=== PATIENT | male | born 1955 | race Caucasian/White ===

== ENCOUNTER → 2018-04-30 15:43 | Outpatient (CLI) | payer MEDICARE, OTHER, SELFPAY ==
[2018-04-30 12:30] VITALS: BMI 39.0
[2018-04-30 16:13] LABS: AST(SGOT) 13 U/L (15-37); Alanine Aminotransfer ALT/SGPT 31 U/L (16-61); Albumin, Serum 3.5 g/dL (3.2-5.0); Alkaline Phosphatase 70 U/L (45-117); Amylase 155 U/L (25-115); Bilirubin, Direct 0.11 mg/dL (0.00-0.30); Globulin 3.7 g/dL (2.2-4.2); Lipase 389 U/L (73-393); Protein, Total 7.2 g/dL (6.4-8.2)
[2018-05-03 06:06] LABS: HEPATITIS B SURFACE AG Negative (Negative); Hepatitis A IgM Antibody Negative (Negative); Hepatitis B Core AB IgM Negative (Negative)
[2018-05-03 10:30] LABS: Hep C Antibodies <0.1 s/co ratio (0.0-0.9)
== END ==
PROVIDERS: Family Provider Nurse Practitioner; PCP Nurse Practitioner; Referring Provider Nurse Practitioner; Visit Provider Nurse Practitioner
DX: E11.9 Type 2 diabetes mellitus without complications (principal); R10.11 Right upper quadrant pain; R11.2 Nausea with vomiting, unspecified
CPT/HCPCS: 80074; 80076; 82150; 83690

== ENCOUNTER → 2019-01-18 23:59 | Outpatient (CLI) | payer MEDICARE, OTHER, SELFPAY ==
[2019-01-18 20:23] VITALS: BMI 39.3
[2019-01-19 00:28] LABS: AST(SGOT) 22 U/L (15-37); Alanine Aminotransfer ALT/SGPT 30 U/L (16-61); Albumin, Serum 3.8 g/dL (3.2-5.0); Alkaline Phosphatase 65 U/L (45-117); Anion Gap 5 (5-15); BUN 17 mg/dL (7-18); BUN/Creat Ratio 13.2 RATIO (10-20); Calcium,Total 8.9 mg/dL (8.5-10.1); Chloride 107 mmol/L (98-107); Creatinine, Serum 1.29 mg/dL (0.70-1.30); EST Glomerular Filtration Rate 60 mL/min (>60); Est Glom Filt Rate - Afr Amer 72 mL/min (>60); Globulin 3.9 g/dL (2.2-4.2); Glucose 121 mg/dL (74-106); Potassium 4.2 mmol/L (3.5-5.1); Protein, Total 7.7 g/dL (6.4-8.2); Sodium Level 142 mmol/L (136-145)
== END ==
PROVIDERS: Family Provider Nurse Practitioner; PCP Nurse Practitioner; Referring Provider Nurse Practitioner; Visit Provider Nurse Practitioner
DX: R18.8 Other ascites (principal)
CPT/HCPCS: 80053

== ENCOUNTER → 2019-09-15 06:12 | Outpatient (CLI) | payer MEDICARE, OTHER, SELFPAY ==
[2019-08-14 18:54] VITALS: BMI 39.2
[2019-09-13 17:10] VITALS: BMI 37.6
--- NOTE | 2019-09-15 16:12 | STRESSREP ---
Stress Test Report Pharmacologic myocardial perfusion stress test. 64-year-old man with a history of coronary risk factors. Stress protocol: Resting EKG demonstrates sinus bradycardia with a rate of 56 bpm normal intervals are noted resting blood pressure is 148/82 mmHg. 0.4 mg of regadenoson was infused per usual protocol followed Intravenous saline flush injection. Continuous EKG monitoring was performed. The maximum heart rate attained was 83 bpm which was 53% of maximum practice heart rate and the maximum workload was 1 metabolic equivalent. At rest there were no ST or T wave changes noted to suggest abnormal flow reserve. At peak infusion nonspecific ST-T wave changes were noted to suggest abnormal flow reserve. The resting blood pressure was 148/82 with a final blood pressure 138/70 mmHg. Myocardial perfusion protocol. 14.4 mCi of technetium 99m sestamibi was injected at rest. 0.4 mg of regadenoson was infused per usual protocol. At peak infusion 45.0 mCi of technetium 99m sestamibi was injected stress images were obtained stress and rest images were reconstructed and compared in the short axis vertical long horizontal long axis. Gated images were also obtained. Perfusion SPECT analysis: Review of the stress images demonstrate normal uptake of tracer noted in all areas of the myocardium the resting images similarly demonstrate normal uptake of tracer noted in all areas of the myocardium. No areas of reversibility are noted to suggest ischemia no previous infarct is noted. Gated SPECT analysis: The gated ejection fraction is noted to be 61%. Conclusion: Normal pharmacologic myocardial perfusion stress test. Preserved ejection fraction.
== END ==
PROVIDERS: PCP Nurse Practitioner; Referring Provider Nurse Practitioner Family; Visit Provider Nurse Practitioner Family
DX: I25.10 Atherosclerotic heart disease of native coronary artery without angina pectoris (principal); I44.4 Left anterior fascicular block; E11.9 Type 2 diabetes mellitus without complications; I45.10 Unspecified right bundle-branch block
CPT/HCPCS: 78452; 93017; A9500; A4216; J2785

== ENCOUNTER → 2020-05-24 22:07 | Outpatient (CLI) | payer MEDICARE, OTHER, SELFPAY ==
[2020-05-24 17:46] VITALS: BMI 36.2
[2020-05-24 22:13] LABS: Absolute Lymphocyte Count 2.06 X10^3/uL (0.83-4.51); Absolute Neutrophil Count 4.9 X10^3/uL (2.0-7.7); Basophil# 0.06 X10^3/uL; Basophil% 0.7 % (0-1); Eosinophil# 0.23 X10^3/uL; Eosinophils% 2.9 % (0-5); Hematocrit 37.4 % (40-54); Hemoglobin 12.2 g/dL (13.0-16.5); Lymphocyte # 2.06 X10^3/ul (4.0); Lymphocyte % 25.6 % (19-41); Mean Corp Hgb Conc 32.6 g/dL (32-36); Mean Corpuscular Hgb 28.6 pg (27.0-32.0); Mean Corpuscular Volume 87.6 fL (80-94); Mean Platelet Vol. 10.4 fl (6.2-12.0); Monocyte# 0.77 X10^3/uL; Monocyte% 9.6 % (0-10); NRBC Flagged by Analyzer 0 % (0-5); Platelet Count 297 K/mm3 (150-450); RBC Distribution Width CV 13.1 % (11.6-14.6); RBC Distribution Width SD 41.6 fl (35.1-43.9); Red Blood Count 4.27 M/mm3 (4.6-6.2)
[2020-05-24 22:45] LABS: Hemoglobin A1c 6.2 % (3.8-5.6)
== END ==
PROVIDERS: PCP Nurse Practitioner; Referring Provider Nurse Practitioner; Visit Provider Nurse Practitioner
DX: E11.9 Type 2 diabetes mellitus without complications (principal); K21.9 Gastro-esophageal reflux disease without esophagitis
CPT/HCPCS: 83036; 85025

== ENCOUNTER → 2020-06-18 22:12 | Outpatient (CLI) | payer MEDICARE, OTHER, SELFPAY ==
[2020-06-18 16:35] VITALS: BMI 37.8
[2020-06-18 22:22] LABS: Absolute Neutrophil Count 6.2 X10^3/uL (2.0-7.7); Basophil# 0.07 X10^3/uL; Basophil% 0.7 % (0-1); Eosinophil# 0.72 X10^3/uL; Hematocrit 38.1 % (40-54); Hemoglobin 12.1 g/dL (13.0-16.5); Lymphocyte % 22.5 % (19-41); Mean Corp Hgb Conc 31.8 g/dL (32-36); Mean Corpuscular Hgb 28.3 pg (27.0-32.0); Mean Corpuscular Volume 89.2 fL (80-94); Mean Platelet Vol. 11.2 fl (6.2-12.0); Monocyte# 0.92 X10^3/uL; NRBC Flagged by Analyzer 0 % (0-5); Neutrophil # 6.19 X10^3/uL (2.7-7.7); Neutrophil % 60.4 % (47-70); Platelet Count 283 K/mm3 (150-450); RBC Distribution Width CV 13.2 % (11.6-14.6); RBC Distribution Width SD 43.5 fl (35.1-43.9); Red Blood Count 4.27 M/mm3 (4.6-6.2); White Blood Count 10.2 K/mm3 (4.4-11.0)
[2020-06-18 22:35] LABS: Vitamin B12 469 pg/mL (211-911)
[2020-06-18 22:40] LABS: Hemoglobin A1c 6.7 % (3.8-5.6)
[2020-06-18 22:44] LABS: ALB/GLOB Ratio 0.9 RATIO (0.9-2.4); AST(SGOT) 19 U/L (15-37); Alanine Aminotransfer ALT/SGPT 34 U/L (16-61); Albumin, Serum 3.7 g/dL (3.2-5.0); Alkaline Phosphatase 81 U/L (45-117); Anion Gap 5 (5-15); BUN 16 mg/dL (7-18); BUN/Creat Ratio 13.9 RATIO (10-20); Chloride 104 mmol/L (98-107); Creatinine, Serum 1.15 mg/dL (0.70-1.30); EST Glomerular Filtration Rate 68 mL/min (>60); Est Glom Filt Rate - Afr Amer 82 mL/min (>60); Ferritin 49 ng/mL (26-388); Glucose 154 mg/dL (74-106); Iron 44 ug/dL (65-175); Iron Binding Capacity,Total 353 ug/dL (250-450); PERCENT IRON SATURATION 12.5 % (15.0-55.0); Potassium 3.9 mmol/L (3.5-5.1); Protein, Total 7.7 g/dL (6.4-8.2); Sodium Level 139 mmol/L (136-145); Thyroid Stim Hormone (TSH) 0.65 uIU/mL (0.358-3.74); Uric Acid 5.2 mg/dL (3.5-7.2)
== END ==
PROVIDERS: Visit Provider Nurse Practitioner
DX: E78.5 Hyperlipidemia, unspecified (principal); I10 Essential (primary) hypertension; E61.1 Iron deficiency; E11.9 Type 2 diabetes mellitus without complications; R11.2 Nausea with vomiting, unspecified; M10.9 Gout, unspecified
CPT/HCPCS: 80053; 82607; 82728; 83036; 83540; 83550; 84443; 84550; 85025

== ENCOUNTER → 2020-07-08 22:43 | Outpatient (CLI) | payer MEDICARE, OTHER, SELFPAY ==
[2020-07-08 15:50] VITALS: BMI 37.5
[2020-07-08 22:51] LABS: Absolute Lymphocyte Count 1.98 X10^3/uL (0.83-4.51); Absolute Neutrophil Count 5.4 X10^3/uL (2.0-7.7); Basophil# 0.05 X10^3/uL; Basophil% 0.6 % (0-1); Eosinophil# 0.62 X10^3/uL; Eosinophils% 7.1 % (0-5); Hematocrit 40.1 % (40-54); Hemoglobin 12.5 g/dL (13.0-16.5); Lymphocyte # 1.98 X10^3/ul (4.0); Lymphocyte % 22.6 % (19-41); Mean Corp Hgb Conc 31.2 g/dL (32-36); Mean Corpuscular Hgb 27.4 pg (27.0-32.0); Mean Corpuscular Volume 87.7 fL (80-94); Mean Platelet Vol. 10.8 fl (6.2-12.0); Monocyte# 0.73 X10^3/uL; Monocyte% 8.3 % (0-10); NRBC Flagged by Analyzer 0 % (0-5); Neutrophil # 5.37 X10^3/uL (2.7-7.7); Neutrophil % 61.1 % (47-70); Platelet Count 255 K/mm3 (150-450); RBC Distribution Width CV 13.9 % (11.6-14.6); RBC Distribution Width SD 44.7 fl (35.1-43.9); Red Blood Count 4.57 M/mm3 (4.6-6.2); White Blood Count 8.8 K/mm3 (4.4-11.0)
== END ==
PROVIDERS: PCP Nurse Practitioner; Referring Provider Nurse Practitioner; Visit Provider Nurse Practitioner
DX: E78.5 Hyperlipidemia, unspecified (principal)
CPT/HCPCS: 85025

== ENCOUNTER → 2022-09-01 | Outpatient (CLI) | payer MEDICARE, OTHER, SELFPAY | END | disposition home or self-care (01) | PROVIDERS: PCP Nurse Practitioner; Visit Provider Nurse Practitioner | DX: R30.0 Dysuria (principal) | CPT/HCPCS: 87086 ==

== ENCOUNTER → 2022-09-15 | Outpatient (CLI) | payer MEDICARE, OTHER, SELFPAY ==
--- NOTE | 2022-09-15 12:53 | ART_ITS ---
Reason For Study: PAD Procedure A bilateral lower extremity continuous wave Doppler with analog waveform analysis,segmental pressures,and ankle brachial indexes without exercise. Left Segmental Pressures Left brachial= 128mmHg. Left posterior tibial artery = 187mmHg. Left dorsalis pedis artery = 179mmHg. Left digit = 146 mmHg. The left dorsalis pedis waveforms are triphasic. Right Segmental Pressures Right brachial= 128mmHg. Right posterior tibial artery = 190mmHg. Right dorsalis pedis artery = 174mmHg. Right digit = 150 mmHg. The right dorsalis pedis waveforms are triphasic. The right posterior tibial artery waveforms are triphasic. Indices The right ankle brachial index by the dorsalis pedis is 1.36. The right ankle brachial index by the posterior tibial artery is 1.48. The right digital-brachial index is 1.17. The left ankle brachial index by the dorsalis pedis is 1.40. The left ankle brachial index by the posterior tibial artery is 1.46. The left digital-brachial index is 1.14. VL/Lower Ext Art Exam w/o Exercis Interpretation Summary Right KP 1.48, normal. TBI and Doppler/PVR waveforms of the right leg normal a t rest. Left KP 1.46, normal. TBI and Doppler/PVR waveforms of the left leg normal at rest. Ordering Physician: Edgar Babb Referring Physician: EDGAR BABB [employer]CH[employer]-C Performed By: Cassidy Armstrong RVT
--- NOTE | 2022-09-15 12:53 | VDLE_ITS ---
Reason For Study: Swelling RIGHT LEFT GSV is normal. GSV is normal. CFV is compressible, spontaneous, phasic, CFV is compressible, spontaneous, phasic, competent and demonstrates normal competent, and demonstrates normal augmentation. augmentation. FV is compressible, spontaneous, phasic, FV is compressible, spontaneous, phasic, competent and demonstrates normal competent and demonstrates normal augmentation. augmentation. POP V is compressible, spontaneous, phasic, POP V is compressible, spontaneous, phasic, competent and demonstrates normal competent and demonstrates normal augmentation. augmentation. T/P Trunk is compressible. T/P Trunk is compressible. PTV is compressible. PTV is compressible. RT PerV is compressible. LT PerV is compressible. Procedure This is a venous duplex using B-mode, color flow and spectral Doppler. Exam performed in department. VL/Venous Duplex US - Axel Extrem Interpretation Summary Deep veins of the bilateral lower extremities are patent and compressible segme ntally. There is no evidence of bilateral lower extremity deep vein thrombosis. The bilateral great saphenous veins appear patent and compressible segmentally. Ordering Physician: Ginger Bello Referring Physician: Ginger Bello Performed By: Cassidy Armstrong RVT
== END | disposition home or self-care (01) ==
LOC: CVS 12:50
PROVIDERS: PCP Nurse Practitioner; Referring Provider Nurse Practitioner; Visit Provider Nurse Practitioner
DX: I73.9 Peripheral vascular disease, unspecified (principal); R60.9 Edema, unspecified; R09.89 Other specified symptoms and signs involving the circulatory and respiratory systems; M79.89 Other specified soft tissue disorders
CPT/HCPCS: 93923; 93970

== ENCOUNTER → 2025-02-23 | Outpatient (CLI) | payer MEDICARE, OTHER, SELFPAY ==
--- NOTE | 2025-02-23 12:06 | RAD_ITS ---
PROCEDURE: SHOULDER MIN 2 VIEWS 02/23/2025 REASON FOR EXAM: TENDONITIS OR ROTATOR CUFF TECHNIQUE: Procedure Code: [facility] Modality: DX Procedure: SHOULDER MIN 2 VIEWS Laterality: Left COMPARISON: None. FINDINGS: BONES: No acute fracture or focal osseous lesion. JOINTS: No dislocation. The acromioclavicular (AC) joint is widened up to 8.8 mm. Mild arthritic changes of the glenohumeral joint. SOFT TISSUES: The soft tissues are unremarkable. RAD/Shoulder min 2 Views IMPRESSION: 1. No acute osseous abnormality. 2. Widening of the AC joint, may represent (acute or old) type 1 separation in jury. 3. Mild glenohumeral joint osteoarthrosis. Reading Location: [id number]
--- OUTSIDE RECORDS SUMMARY | 2025-02-23 12:24 | XMS RPT_ITS | CCD ---
Author Organization [facility] Care Team Providers Care Hi Lo Driver Name Role Phone PROVIDER, UNKNOWN Unavailable Unavailable PROVIDER, UNKNOWN Unavailable Unavailable Bello, Edgar Unavailable Unavailable Bello, Edgar Primary Care Provider Bello, Edgar Primary Care Provider Bello CANE STRIPPER, CANE STRIPPER-C Edgar Primary Care Provider Bello CANE STRIPPER, CANE STRIPPER-C Edgar Referring Provider MAIRA Olivarez Attending Provider Dr. Elie Mark Attending Provider Bello CANE STRIPPER, Edgar Referring Unavailable Bello CANE STRIPPER, Edgar Primary Care Unavailable Pascual Perez Attending Unavailable Bello CANE STRIPPER, Edgar Primary Care Unavailable Bello CANE STRIPPER, Edgar Attending Unavailable Bello CANE STRIPPER, Edgar Referring Unavailable Bello CANE STRIPPER, Edgar Primary Care Unavailable Bello CANE STRIPPER, Edgar Attending Unavailable Bello CANE STRIPPER, Edgar Referring Unavailable Marissa Olivarez Attending Unavailable Bello CANE STRIPPER, Edgar Primary Care Unavailable Elie Mark Attending Unavailable Bello CANE STRIPPER, Edgar Primary Care Unavailable Bello, Edgar Primary Care Provider [phone] Bello SHIPPING/RECEIVING CLERK.GENE, Edgar L Primary Care Provide r Bello, Edgar Primary Care Provider [phone] Bello SHIPPING/RECEIVING CLERK.CONTENT DEVELOPMENT MANAGER, Edgar L Primary Care Provide r LAZARO QIU Referring Unavailable BELLO, EDGAR L Primary Care Unavailable Bello, Edgar Primary Care Provider BELLO, EDGAR Primary Care Unavailable FENG HAGAN Attending Unavailable LEATHA LIN Attending Unavailable BELLO, EDGAR Primary Care Unavailable FENG HAGAN Referring Unavailable BELLO, EDGAR Primary Care Unavailable ADDIE LEES Attending Unavailable ADDIE LEES Referring Unavailable BELLO, EDGAR Primary Care Unavailable DMITRIY POWER Attending Unavailable Lazaro Qiu Referring Unavailable BELLO, EDGAR L Primary Care Unavailable Lazaro Qiu Attending Unavailable RONAN DEL CASTILLO Referring Unavailable BELLO, EDGAR L Primary Care Unavailable Allergies Allergy Classification Reported Allergen(s) Allergy Type Date of Onset Reaction(s) Facility (8 sources) SITagliptin; Translations: [SITAGLIPTIN] Drug Allergy 4 [place], [place] (18 sources) SITagliptin Drug Allergy 2 Other: See Comments [facility] (1 source) SITagliptin Drug Allergy 3 [facility] (10 sources) bee venom Propensity to adverse reactions 3 Anaphylaxis, Swelling [facility] Medications Current Medications Medication Drug Class(es) Dates Sig (Normalized) Sig (Original) allopurinol 100 mg oral tablet (20 sources) Xanthine Oxidase Inhibitor Start: 04-16-2017 allopurinol (Zyloprim) 100 MG tablet Take 100 mg by mouth. 11/28/2018 Active Comment on above: Take 100 mg by mouth once daily. amLODIPine 5 mg oral tablet (20 sources) Dihydropyridine Calcium Channel Trang Start: 06-14-2018 take 10 mg by mouth once daily Amlodipine Active 10 MG PO DAILY June 14, 2018 1:00am Start: 04-16-2017 End: 11-22-2024 take 1 tablet by mouth once daily amLODIPine (Norvasc) 5 MG tablet Take 5 mg by mouth daily. 11/28/2018 Active Comment on above: Take 5 mg by mouth o nce daily. ascorbic acid 250 mg oral tablet (19 sources) Vitamin C Start: 10-19-2017 take 1 tablet by mouth once daily ascorbic acid (Vitamin C) 250 MG tablet Take 250 mg by mouth daily. 11/28/2018 Active ASCORBIC ACID OR AL Take by mouth. Active ASCORBIC ACID OR AL Take by mouth. 0 Suspended Comment on above: Take by mouth. atorvastatin 20 mg oral tablet (3 sources) HMG-CoA Reductase Inhibitor Start: 024 take 1 tablet by mouth once daily atorvastatin (Lipitor) 20 MG tablet Take 20 mg by mouth daily. 01/07/2024 Active busPIRone hydrochloride 10 mg oral tablet (3 sources) Start: 025 take 1 tablet by mouth twice daily busPIRone (Buspar) 10 MG tablet Take 10 mg by mouth 2 times daily. 09/06/2024 Active cholecalciferol 0.357 mg/ml oral solution (1 source) Vitamin D Start: 018 take 400 [IU] by mouth once daily Cholecalciferol (Vitamin D3) (Baby Vitamin D3) 400 unit/drop drops Active 400 UNIT PO daily October 19, 2017 12:00am ciprofloxacin 500 mg oral tablet (4 sources) Quinolone Antimicrobial Start: 023 take 1 tablet by mouth twice daily Ciprofloxacin Hcl (Cipro) 500 mg tablet Active 500 MG PO TWICE A DAY September 01, 2022 12:00am Start: 01-22-2022 End: 03-03-2022 take 500 mg by mouth twice daily Ciprofloxacin Hcl Discontinued 500 MG PO TWICE A DAY January 22, 2022 4:01pm March 03, 2022 4:51pm Start: 03-16-2019 End: 08-14-2019 take 1 tablet by mouth twice daily Ciprofloxacin Hcl (Cipro) 500 mg tablet Discontinued 500 MG PO TWICE A DAY March 16, 2019 1:00am August 14, 2019 6:37pm Start: 05-06-2018 End: 06-14-2018 take 500 mg by mouth twice daily Ciprofloxacin Hcl Discontinued 500 MG PO TWICE A DAY May 06, 2018 1:00am June 14, 2018 4:37pm cloNIDine hydrochloride 0.1 mg oral tablet (20 sources) Central alpha-2 Adrenergic Agonist Start: 11-28-2018 take 1 tablet by mouth twice daily cloNIDine (Catapres) 0.1 MG tablet Take 0.1 mg by mouth 2 times daily. 11/28/2018 Active Start: 10-19-2017 End: 06-14-2018 take 0.1 mg by mouth twice daily Clonidine Hcl Discontinued 0.1 MG PO TWICE A DAY October 19, 2017 12:00am June 14, 2018 4:40pm Start: 04-16-2017 End: 10-19-2017 take 0.2 mg by mouth at bedtime Clonidine Hcl Disconti nued 0.2 MG PO AT BEDTIME April 16, 2017 3:07pm October 19, 2017 4:03pm Comment on above: Take 0.1 mg by mouth twice daily. ferrous sulfate 325 mg oral tablet (20 sources) Start: 08-14-2019 take 325 mg by mouth every other day Ferrous Sulfate Active 325 MG PO every other day August 14, 2019 6:37pm Start: 01-17-2019 End: 08-14-2019 take 325 mg by mouth twice daily Ferrous Sulfate Discontinued 325 MG PO TWICE A DAY January 17, 2019 3:18pm August 14, 2019 6:38pm Start: 10-19-2017 End: 01-17-2019 take 325 mg by mouth once daily Ferrous Sulfate Discontinued 325 MG PO daily October 19, 2017 12:00am January 17, 2019 3:19pm Comment on above: Take 325 mg by mouth daily with breakfast. emollient fluocinonide 0.5 mg/ml topical cream (1 source) Corticosteroid Start: 02-19-20 Fluocinonide-Emol lient (Fluocinonide-E) 0.05 % cream Active 1 APPLIC TOPICAL 2 to 4 times per day February 19, 2020 12:00am irbesartan 300 mg oral tablet (9 sources) Angiotensin 2 Receptor Trang Start: 10-05-19 15 End: 10-20-19 18 take 1 tablet by mouth once daily at bedtime irbesartan (AVAPRO) 300 mg tablet Indications: HTN (hypertension) Take 1 tablet by mouth daily at bedtime. 90 tablet 3 10/04/2014 Active Comment on above: Take 1 tablet by matthew th daily at bedtime. 24 hr loratadine 10 mg / pseudoephedrine sulfate 240 mg extended release oral tablet (11 sources) alpha-Adrenergic Agonist take 10-240 mg by mouth every twenty-four hours loratadine-pseudo ephedrine ER (Claritin-D 24-hour) 10-240 MG 24 hr tablet Take 1 tablet by mouth daily. Do not crush, chew, or split. Active losartan potassium 100 mg oral tablet (18 sources) Angiotensin 2 Receptor Trang Start: 10-20-19 18 End: 01-18-20 19 losartan (Cozaar) 100 MG tablet 100 mg. 11/28/2018 Active Comment on above: Take 100 mg by mouth once daily. lovastatin 40 mg oral tablet (20 sources) HMG-CoA Reductase Inhibitor Start: 10-05-19 15 lovastatin (Mevacor) 40 MG tablet 40 mg. 11/28/2018 Active Start: 10-04-2014 lovastatin (ME VACOR) 40 MG tablet Take 100 mg by mouth 0 10/04/2014 Active Comment on above: Take 1 tablet by matthew th daily at bedtime. metFORMIN hydrochloride 1000 mg oral tablet (20 sources) Biguanide Start: 11-28-2018 metFORMIN (Glucophage) 1000 MG tablet Take 1,000 mg by mouth. 11/28/2018 Active Start: 12-01-2014 End: 04-16-2017 take 1 tablet by mouth twice daily metFORMIN (GLUCOPHAGE) 1,000 mg tablet Indications: Type 2 diabetes mellitus without complication (HCC) Take 1 tablet by mouth twice daily. 180 tablet 2 12/01/2014 Active Comment on above: Take 1 tablet by matthew th twice daily. metoclopramide 10 mg oral tablet (1 source) Dopamine-2 Receptor Antagonist Start: 06-18-19 21 take 10 mg by mouth at bedtime Metoclopramide Hcl Active 10 MG PO AT BEDTIME June 18, 2020 1:00am metoprolol tartrate 100 mg oral tablet (20 sources) beta-Adrenergic Trang Start: 10-05-19 15 metoprolol tartrate (Lopressor) 100 MG tablet 100 mg. 11/28/2018 Active take 1 tablet by mouth twice tom ly metoprolol succinate (TOPROL XL) 100 MG extended release tablet Take 100 mg by mouth 2 times daily 0 Active Comment on above: Take 1 tablet by matthew twice daily. naproxen 500 mg oral tablet (5 sources) Nonsteroidal Anti-inflammatory Drug Start: 12-24-19 17 take 1 tablet by mouth twice daily at mealtime naproxen (NAPROSYN) 500 MG tablet Take 1 tablet by mouth 2 times daily (with meals) 14 tablet 0 12/23/2016 Active omeprazole 20 mg delayed release oral tablet (3 sources) Proton Pump Inhibitor Start: 07-11-19 25 omeprazole OTC (PriLOSEC OTC) 20 MG EC tablet Take 40 mg by mouth every morning (before breakfast). 07/10/2024 Active pantoprazole 40 mg delayed release oral tablet (20 sources) Proton Pump Inhibitor Start: 08-22-19 24 take 1 tablet by mouth twice daily before mealtime pantoprazole DR (PROTONIX) 40 mg tablet Take 1 tablet by mouth two times a day before meals at 6 am and 4 pm. Patient should start on August 22, 2023. 60 tablet 08/22/2023 Active Start: 04-16-2017 End: 10-19-2017 take 40 mg by mouth once daily pantoprazole DR 40 mg granules delayed-release for susp in packet Discontinued 40 MG PO daily April 16, 2017 1:00am October 19, 2017 4:05pm Start: 10-04-2014 take 1 tablet by matthew th once daily pantoprazole (ProtoNix) 40 MG EC tablet Take 40 mg by mouth daily. 11/28/2018 Active Comment on above: Take 1 tablet by matthew th once daily. pioglitazone 45 mg oral tablet (20 sources) Peroxisome Proliferator Receptor alpha Agonist, Peroxisome Proliferator Receptor gamma Agonist, Thiazolidinedione Start: 11-05-2014 End: 05-24-2020 pioglitazone (ACTOS) 45 mg tablet Indications: DM type 2 (diabetes mellitus, type 2) ([facility]) Take 1 tablet by mouth once daily. 90 tablet 3 11/05/2014 Active take 1 tablet by mouth once edith y pioglitazone (Actos) 30 MG tablet Take 30 mg by mouth daily. Active Comment on above: Take 1 tablet by matthew th once daily. Sertraline (14 sources) Serotonin Reuptake Inhibitor SER TRALINE HCL PO Take by mouth. Active SERTRALINE HCL P O Take by mouth. 0 Active triamcinolone acetonide 5 mg/ml topical cream (1 source) Corticosteroid Start: 08-14-2019 Triamcinolone Acetonide Active 1 APPLIC TOPICAL TWICE A DAY August 14, 2019 12:00am 24 hr venlafaxine 37.5 mg extended release oral capsule (11 sources) Serotonin and Norepinephrine Reuptake Inhibitor Start: 10-19-2017 take 37.5 mg by mouth once daily Venlafaxine Active 37.5 MG PO daily October 19, 2017 12:00am Start: 04-16-2017 End: 10-19-2017 take 75 mg by mouth once daily Venlafaxine Discontinue d 75 MG PO daily April 16, 2017 1:00am October 19, 2017 4:00pm take 1 capsule by mo [facility] once daily venlafaxine XR 75 mg 24 hr capsule Take 225 mg by mouth once daily. Active take 1 tablet by matthew th twice daily venlafaxine (EFFEXOR) 75 MG tablet Take 75 mg by mouth 2 times daily 0 Active take 1 tablet by matthew th three times daily venlafaxine (EFFEXOR) 75 MG tablet Take 75 mg by mouth 3 times daily 0 Active Comment on above: Take 225 mg by mouth once daily. Completed/Discontinued Medications Medication Drug Class(es) Dates Sig (Normalized) Sig (Original) acetaminophen 325 mg / oxyCODONE hydrochloride 5 mg oral tablet (1 source) Opioid Agonist Start: 04-16-2017 End: 04-16-2017 take 1 tablet by mouth every four hours Oxycodone-Acetamin ophen (Percocet) 5-325 mg tablet Discontinued 1 TABLET PO Q4H April 16, 2017 1:00am April 16, 2017 2:40pm albuterol 0.83 mg/ml inhalation solution (1 source) beta2-Adrenergic Agonist Start: 07-08-2020 End: 11-04-2021 take 2.5 mg by inhalation every four hours Albuterol Sulfate Discontinued 2.5 MG INHALATION Q4H 75 July 08, 2020 1:00am November 04, 2021 5:05pm amoxicillin 875 mg / clavulanate 125 mg oral tablet (1 source) Penicillin-class Antibacterial Start: 11-04-2021 End: 11-04-2021 take 1 tablet by mouth twice daily Amoxicillin-Pot Clavulanate Discontinued 1 TABLET PO TWICE A DAY November 04, 2021 12:00am November 04, 2021 5:08pm aspirin 81 mg delayed release oral tablet (9 sources) Platelet Aggregation Inhibitor, Nonsteroidal Anti-inflammatory Drug Start: 04-16-2017 End: 09-14-2018 Aspirin (Adult Low Dose Aspirin) 81 mg tablet,delayed release (DR/EC) Discontinued 81 MG PO daily April 16, 2017 1:00am September 14, 2018 6:02pm Start: 04-16-2009 ASPIRIN 81 MG TAB Indications: Acute pancreatitis (HCC) Take one(1) tablet daily. 0 04/16/2009 Active take 1 tablet by matthew th once daily aspirin 81 MG chewable tablet Take 81 mg by mouth daily 0 Active Comment on above: Take one(1) tablet d aily. azithromycin 250 mg oral tablet (2 sources) Macrolide Antimicrobial Start: 03-03-2022 End: 03-08-2022 Azithromycin Discontinued 250 MG PO daily 6 March 03, 2022 12:00am March 08, 2022 12:04am 2 po qd for 1 day then 1 po qd for 4 days with food or after eating Start: 07-08-2020 End: 07-13-2020 Azithromycin Discontinued 25 0 MG PO daily 6 July 08, 2020 1:00am July 13, 2020 1:03am 2 po qd for 1 day then 1 po qd for 4 days with food or after eating baclofen 5 mg oral tablet (1 source) gamma-Aminobutyric Acid-ergic Agonist Start: 05-06-2021 End: 11-04-2021 Baclofen Discontinued 5 MG PO THREE TIMES A DAY May 06, 2021 1:00am November 04, 2021 5:05pm May take 1-2 pills up to 3 x a day cefdinir 300 mg oral capsule (2 sources) Cephalosporin Antibacterial Start: 06-03-2022 End: 08-26-2022 take 300 mg by mouth twice daily Cefdinir Discontinued 300 MG PO TWICE A DAY June 03, 2022 4:07pm August 26, 2022 5:02pm Start: 11-04-2021 End: 03-03-2022 take 300 mg by mouth twice daily Cefdinir Discontinued 300 MG PO TWICE A DAY November 04, 2021 12:00am March 03, 2022 4:52pm cefuroxime 500 mg oral tablet (1 source) Cephalosporin Antibacterial Start: 10-31-2018 End: 01-17-2019 take 500 mg by mouth twice daily Cefuroxime Axetil Discontinued 500 MG PO TWICE A DAY October 31, 2018 12:00am January 17, 2019 3:18pm 1 ml ketorolac tromethamine 15 mg/ml cartridge (2 sources) Nonsteroidal Anti-inflammatory Drug, Cyclooxygenase Inhibitor Start: 02-01-2024 End: 02-01-2024 15 mg, IntraVENous, Once, On Wed02/01/24 at 1250, For 1 dose 1 ml morphine sulfate 4 mg/ml cartridge (2 sources) Opioid Agonist Start: 02-01-2024 End: 02-01-2024 take 1 dose by mouth every hour 4 mg, IntraVENous, Once, On Wed02/01/24 at 1250, For 1 dose, If oral and IV narcotics ordered, use oral first and only use IV if oral is ineffective or cannot take oral. Do Not give oral and IV within 1 hour of each other unless specifically ordered. mupirocin 0.02 mg/mg topical ointment (1 source) RNA Synthetase Inhibitor Antibacterial Start: 03-16-2019 End: 09-13-2019 Mupirocin Discontinued 1 APPLIC TOPICAL TWICE A DAY March 16, 2019 1:00am September 13, 2019 5:17pm olmesartan medoxomil 40 mg oral tablet (1 source) Angiotensin 2 Receptor Trang Start: 09-08-2019 End: 09-08-2019 take 20 mg by mouth once daily Olmesartan Discontinued 20 MG PO DAILY September 08, 2019 12:00am September 08, 2019 4:06pm [place]-3 Fatty Acids (Fish Oil Concentrate) 1,000 mg capsule (1 source) Start: 10-19-2017 End: 08-14-2019 take 1 capsule by mouth once daily [place]-3 Fatty Acids (Fish Oil Concentrate) 1,000 mg capsule Discontinued 1000 MG PO daily October 19, 2017 12:00am August 14, 2019 6:38pm 2 ml ondansetron 2 mg/ml injection (3 sources) Serotonin-3 Receptor Antagonist Start: 02-01-2024 End: 02-01-2024 4 mg, IntraVENous, Once, On Wed02/01/24 at 1250, For 1 dose Start: 11-30-2022 End: 12-30-2022 take 1 tablet by mouth every eight hours as needed for nausea ondansetron ODT (Zofran-ODT) 4 MG disintegrating tablet Indications: Vertigo Take 1 tablet (4 mg) by mouth every 8 hours as needed for nausea or vomiting. 30 tablet 0 11/30/2022 12/30/2022 Active predniSONE 20 mg oral tablet (5 sources) Start: 06-03-2022 End: 08-26-2022 take 40 mg by mouth once daily Prednisone Discontinued 40 MG PO DAILY June 03, 2022 1:00am August 26, 2022 5:03pm Start: 01-22-2022 End: 03-03-2022 take 40 mg by mouth once daily Prednisone Discontinued 40 MG PO DAILY January 22, 2022 12:00am March 03, 2022 4:51pm Start: 02-24-2021 End: 03-03-2022 Prednisone Discontinued 20 M G PO TWICE A DAY 06 09February 24, 2021 12:00am March 03, 2022 4:51pm 2 po bid 4D,1 po bid for 4 D, 1 po qd for 4 D 1/2 po qd for 2 days Start: 07-08-2020 End: 07-18-2020 take 40 mg by mouth once daily Prednisone Discontinued 40 MG PO DAILY 26 02July 08, 2020 1:00am July 18, 2020 1:03am Start: 01-27-2019 End: 02-01-2019 Prednisone Discontinued 20 M G PO TWICE A DAY 06 09January 27, 2019 12:00am February 01, 2019 12:07am 2 po bid 4D,1 po bid for 4 D, 1 po qd for 4 D 1/2 po qd for 2 days promethazine hydrochloride 12.5 mg oral tablet (5 sources) Phenothiazine Start: 09-13-2019 End: 11-04-2021 take 12.5 mg by mouth three times daily Promethazine Discontinued 12.5 MG PO THREE TIMES A DAY September 13, 2019 12:00am November 04, 2021 5:06pm Start: 04-21-2018 End: 06-14-2018 take 1 tablet by mouth every four hours promethazine 12.5 mg tablet Discontinued 12.5 MG PO Q4H 60 April 21, 2018 1:00am June 14, 2018 4:37pm take 1 tablet by matthew th every six hours as needed promethazine (PHENERGAN) 12.5 mg tablet Take 12.5 mg by mouth every 6 hours as needed. Active Comment on above: Take 12.5 mg by mout h every 6 hours as needed. semaglutide 7 mg oral tablet (3 sources) Start: 04-16-2020 End: 04-17-2020 take 1 tablet by mouth once daily Semaglutide (Rybelsus) 14 mg tablet Discontinued 14 MG PO DAILY April 16, 2020 1:00am April 17, 2020 3:12pm Start: 04-16-2020 End: 05-24-2020 take 1 tablet by mouth once daily Semaglutide (Rybelsus) 7 mg tablet Discontinued 7 MG PO DAILY April 17, 2020 3:12pm May 24, 2020 6:49pm 50 ml sodium chloride 9 mg/ml injection (2 sources) Start: 02-01-2024 End: 02-01-2024 1,000 mL, IntraVENous, at 1,000 mL/hr, Administer over 1 Hours, Once, On Wed02/01/24 at 1250, For 1 dose sucralfate 1000 mg oral tablet (6 sources) Aluminum Complex Start: 04-16-2020 End: 11-04-2021 take 1 tablet by mouth twice daily Sucralfate (Carafate) 1 gram tablet Discontinued 1 GM PO TWICE A DAY April 16, 2020 1:00am November 04, 2021 5:06pm Start: 09-14-2018 End: 03-16-2019 take 1 g by mouth three times daily Sucralfate Discontinued 1 GM PO THREE TIMES A DAY September 14, 2018 12:00am March 16, 2019 6:23pm Start: 04-21-2018 End: 06-14-2018 take 1 g by mouth twice daily Sucralfate Discontinued 1 GM PO TWICE A DAY April 21, 2018 1:00am June 14, 2018 4:37pm take 1 tablet by matthew th four times daily sucralfate (CARAFATE) 1 gram tablet Take 1 g by mouth four times daily. Active Comment on above: Take 1 g by mouth fo ur times daily. tiZANidine 4 mg oral capsule (1 source) Central alpha-2 Adrenergic Agonist Start: 7 End: 8 take 1 capsule by mouth every eight hours Tizanidine (Zanaflex) 4 mg capsule Discontinued 4 MG PO Q8H April 16, 2017 1:00am October 19, 2017 4:06pm Problems Active Problems Problem Classification Problem Date Documented Date Episodic/Chronic Allergic reactions (3 sources) Allergy status to other drugs, medicaments and biological substances status; Translations: [Contact dermatitis due to poison benjamin] Onset: 12-23-2016 02-24-2021 Episodic Anxiety disorders (3 sources) Anxiety; Translations: [Anxiety disorder, unspecified] Onset: 10-31-2013 10-31-2013 Chronic Chronic obstructive pulmonary disease and bronchiectasis (1 source) Bronchitis; Translations: [Bronchitis, not specified as acute or chronic] 01-22-2022 Episodic Conduction disorders (2 sources) Left anterior fascicular block; Translations: [Left anterior fascicular block] 04-16-2017 Chronic Deficiency and other anemia (1 source) Anemia due to blood loss; Translations: [Iron deficiency anemia secondary to blood loss (chronic)] 12-16-2022 Chronic Deficiency and other anemia (1 source) Anemia due to chronic blood loss; Translations: [Iron deficiency anemia secondary to blood loss (chronic)] 04-13-2023 Chronic Deficiency and other anemia (1 source) Anemia; Translations: [Anemia, unspecified] 06-17-2020 Episodic Diabetes mellitus without complication (5 sources) Type 2 diabetes mellitus without complication; Translations: [Type 2 diabetes mellitus without complications] Onset: 12-01-2014 04-16-2020 Chronic Disorders of lipid metabolism (5 sources) Hyperlipidemia; Translations: [Hyperlipidemia, unspecified] Onset: 10-19-2013 06-18-2020 Chronic Diverticulosis and diverticulitis (3 sources) Diverticular disease; Translations: [Diverticulosis of intestine, part unspecified, without perforation or abscess without bleeding] Onset: 10-31-2013 10-31-2013 Chronic Esophageal disorders (7 sources) Gastroesophageal reflux disease; Translations: [Gastro-esophageal reflux disease without esophagitis] Onset: 10-19-2013 06-17-2020 Chronic Essential hypertension (4 sources) Essential hypertension; Translations: [Essential (primary) hypertension] Onset: 10-19-2013 06-19-2019 Chronic External Injury - Fall (2 sources) Other fall from one level to another, initial encounter; Translations: [Other fall from one level to another, initial encounter] Onset: 12-23-2016 Genitourinary symptoms and ill-defined conditions (2 sources) Dysuria; Translations: [Dysuria] Onset: 09-09-2022 09-01-2022 Episodic Gout and other crystal arthropathies (1 source) Gout; Translations: [Gout, unspecified] 06-18-2020 Chronic Mood disorders (3 sources) Depressive disorder; Translations: [Depression] Onset: 10-19-2013 10-19-2013 Chronic Nausea and vomiting (2 sources) Nausea; Translations: [Nausea] 09-14-2019 Episodic Nutritional deficiencies (1 source) Iron deficiency; Translations: [Iron deficiency] 06-18-2020 Episodic Osteoarthritis (6 sources) Arthritis of knee; Translations: [Unilateral primary osteoarthritis, left knee] Onset: 10-19-2013 08-25-2022 Chronic Other and unspecified benign neoplasm (2 sources) Gastric polyposis; Translations: [Polyp of stomach and duodenum] 11-22-2024 Episodic Other and unspecified benign neoplasm (2 sources) Polyp of stomach and duodenum; Translations: [Gastric polyposis] Onset: 11-27-2024 Episodic Other circulatory disease (1 source) Peripheral vascular disease; Translations: [Other specified symptoms and signs involving the circulatory and respiratory systems] 08-25-2022 Episodic Other hereditary and degenerative nervous system conditions (1 source) Cerebellar ataxia; 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, unspecified] 06-18-2020 Chronic Other inflammatory condition of skin (1 source) Pruritus of skin; Translations: [Pruritus, unspecified] 02-24-2021 Episodic Other injuries and conditions due to external causes (1 source) Injury of knee; Translations: [Unspecified injury of right lower leg, initial encounter] 08-20-2022 Episodic Other injuries and conditions due to external causes (1 source) Unspecified injury of right lower leg, initial encounter; Translations: [Unspecified injury of right lower leg, initial encounter] Onset: 08-28-2022 Episodic Other liver diseases (3 sources) Steatosis of liver; Translations: [Fatty (change of) liver, not elsewhere classified] Onset: 10-31-2013 10-31-2013 Chronic Other lower respiratory disease (1 source) Cough; Translations: [Cough with exposure to COVID-19 virus] 07-08-2020 Episodic Other lower respiratory disease (1 source) Dyspnea; Translations: [Dyspnea, unspecified] 07-08-2020 Episodic Other male genital disorders (3 sources) Male erectile dysfunction, unspecified; Translations: [Impotence of organic origin] Onset: 01-04-2014 01-04-2014 Chronic Other nervous system disorders (3 sources) Chronic pain; Translations: [Other chronic pain] Onset: 10-19-2013 05-05-2021 Chronic Other non-traumatic joint disorders (2 sources) Pain in right knee; Translations: [Right knee pain] Onset: 08-28-2022 08-20-2022 Episodic Other nutritional; endocrine; and metabolic disorders (4 sources) Morbid obesity; Translations: [Morbid (severe) obesity due to excess calories] Onset: 10-31-2013 06-18-2020 Chronic Other nutritional; endocrine; and metabolic disorders (3 sources) Obese class II; Translations: [Obesity, unspecified] Onset: 05-23-2018 05-23-2018 Chronic Other screening for suspected conditions (not mental disorders or infectious disease) (1 source) Patient encounter status; Translations: [Encounter for screening for malignant neoplasm of stomach] 11-22-2024 Episodic Other upper respiratory infections (1 source) Maxillary sinusitis; Translations: [Chronic maxillary sinusitis] 11-04-2021 Chronic Otitis media and related conditions (2 sources) Acute right otitis media; Translations: [Otitis media, unspecified, right ear] 03-03-2022 Episodic Peripheral and visceral atherosclerosis (1 source) Peripheral vascular disease, unspecified; Translations: [Peripheral vascular disease, unspecified] Onset: 09-23-2022 Chronic Residual codes; unclassified (3 sources) Sleep apnea; Translations: [Sleep apnea, unspecified] Onset: 10-31-2013 05-05-2021 Chronic Residual codes; unclassified (4 sources) Obstructive sleep apnea syndrome; Translations: [Obstructive sleep apnea (adult) (pediatric)] 12-02-2023 Chronic Residual codes; unclassified (2 sources) Obstructive sleep apnea (adult) (pediatric); Translations: [Obstructive sleep apnea (adult) (pediatric)] Onset: 01-24-2025 Chronic Residual codes; unclassified (1 source) Edema; Translations: [Edema, unspecified] 09-03-2022 Episodic Spondylosis; intervertebral disc disorders; other back problems (3 sources) Displacement of cervical intervertebral disc; Translations: [Other cervical disc displacement, unspecified cervical region] Onset: 10-31-2013 05-05-2021 Chronic Past or Other Problems Problem Classification Problem Date Documented Da te Episodic/Chronic Biliary tract disease (3 sources) Biliary colic; Translations: [Calculus of bile duct without cholangitis or cholecystitis without obstruction] Onset: 9 05-30-2018 Episodic Calculus of urinary tract (7 sources) Ureteric stone; Translations: [Calculus of ureter] Onset: 4 Resolved: 7 03-13-2024 Episodic Deficiency and other anemia (1 source) Iron deficiency anemia; Translations: [Iron deficiency anemia, unspecified] Episodic Gastrointestinal hemorrhage (3 sources) Upper gastrointestinal bleeding; Translations: [Gastrointestinal hemorrhage, unspecified] Onset: 4 08-20-2023 Episodic Hemorrhoids (3 sources) Hemorrhoids; Translations: [Unspecified hemorrhoids] Onset: 4 10-31-2013 Episodic Neoplasms of unspecified nature or uncertain behavior (3 sources) Neoplasm of uncertain behavior of skin of back; Translations: [Neoplasm of uncertain behavior of skin] Onset: 4 05-05-2021 Episodic Other and unspecified benign neoplasm (3 sources) Adenomatous polyp of colon ; Translations: [Benign neoplasm of colon, unspecified] Onset: 4 05-05-2021 Episodic Other and unspecified benign neoplasm (2 sources) History of polyp of colon; Translations: [Hx of colonic polyps] Onset: 4 Resolved: 7 05-05-2021 Episodic Other diseases of kidney and ureters (4 sources) Hydronephrosis with renal and ureteral calculous obstruction; Translations: [Calculus of ureter] Onset: 4 02-01-2024 Episodic Other eye disorders (3 sources) Keratoconus; Translations: [Keratoconus, unspecified, unspecified eye] Onset: 4 10-31-2013 Episodic Other fractures (3 sources) Compression fracture of vertebral column; Translations: [Compression fracture of vertebral column, sequela] Onset: 7 01-20-2017 Episodic Other male genital disorders (3 sources) Disorder of prostate; Translations: [Disorder of prostate, unspecified] Onset: 5 11-02-2014 Episodic Other upper respiratory disease (2 sources) Allergic rhinitis; Translations: [Allergic rhinitis, unspecified] Onset: 4 Resolved: 7 02-16-2017 Chronic Pancreatic disorders (not diabetes) (2 sources) Acute pancreatitis; Translations: [Acute pancreatitis without necrosis or infection, unspecified] Onset: 4 Resolved: 7 05-05-2021 Episodic Residual codes; unclassified (2 sources) Restlessness and agitation; Translations: [Restlessness and agitation] Onset: 4 Resolved: 7 02-16-2017 Chronic Shock (3 sources) Shock; Translations: [Shock, unspecified] Onset: 4 08-20-2023 Episodic Spondylosis; intervertebral disc disorders; other back problems (7 sources) Low back pain; Translations: [Pain in thoracic spine] Onset: 4 05-06-2021 Episodic Sprains and strains (2 sources) Strain of muscle, fascia and tendon of lower back, initial encounter; Translations: [Strain of muscle, fascia and tendon of lower back, init] Onset: 7 Episodic Superficial injury; contusion (2 sources) Contusion of lower back and pelvis, initial encounter; Translations: [Contusion of lower back and pelvis, initial encounter] Onset: 7 Episodic Viral infection (2 sources) Verruca vulgaris; Translations: [Viral wart, unspecified] Onset: 4 Resolved: 7 02-16-2017 Episodic Results Test Name Value Interpretation Reference Range Facility ANES POSTPROC EVALon 025 ANES POSTPROC EVAL HNO ID: [id number] Author: DMITRIY POWER MD Service: ? Author Type: Anesthesiologist Type: Anesthesia Postprocedure Evaluation Filed: 02/20/2025 12:55 Note Text: POST ANESTHESIA EVALUATION NOTE : 1955 Procedure Summary Date: 02/20/25 Room / Location: Gastroenterology Anesthesia Start: 1038 Anesthesia Stop: 115 Procedure: EGD - THERAPEUTIC, EUS, OR TUBE INTERVENTIONS Diagnosis: Gastric polyposis (Therapeutic procedure) Scheduled Providers: Lazaro Qiu MD; Melanie Arguelles APRN.CRACK OFF PERSON; Dmitriy Power MD Responsible Provider: Dmitriy Power MD Anesthesia Type: general ASA Status: 3 Anesthesia Type: general Airway Type: ETT Last Vitals Vitals Value Taken Time BP 119/60 02/20/25 12:50 Temp 36.3 ?C (97.3 ?F) 02/20/25 11:57 Pulse 53 02/20/25 12:53 Resp 16 02/20/25 12:50 SpO2 92 % 02/20/25 12:53 Vitals shown include unfiled device data. Post Anesthesia Patient Status Patient Evaluation: bedside. Anticipated Disposition: phase 2 then home. Neurological Status: aware and responsive. Pulmonary Status: breathing comfortably on room air Cardiovascular Status: stable. - multimodal analgesia pain management approach Postoperative Hydration: acceptable. Intraoperative Events: no significant anesthesia events Post Operative Nausea/Vomiting Status: no significant post operative nausea or vomiting Recommendation: continue current plan of care. Anesthesia Observations No notable events were associated with this procedure. Documented by Dmitriy Power MD 02/20/2025 12:55 PM EDT SIGNATURE: Dmitriy Power MD PATIENT NAME: Ramsey Chance DATE: February 20, 2025 TIME: 12:55 PM CSN: [id number] Normal [facility] ANES PRE-OPon 02-20-2025 ANES PRE-OP HNO ID: [id number] Author: DMITRIY POWER MD Service: ? Author Type: Anesthesiologist Type: Anesthesia Preprocedure Evaluation Filed: 02/20/2025 11:02 Note Text: ANESTHESIOLOGY DAY OF SURGERY NOTE : 1955 Procedure Information Date/Time: 02/20/25 1000 Scheduled providers: Lazaro Qiu MD; Melanie Arguelles APRN.CRACK OFF PERSON; Dmitriy Power MD Procedure: EGD - THERAPEUTIC, EUS, OR TUBE INTERVENTIONS Location: Gastroenterology Estimated body mass index is 34.44 kg/m? as calculated from the following: Height as of 08/20/23: 180.3 cm (5' 11"). Weight as of 08/21/23: 112 kg (246 lb 14.6 oz). Most recent hematocrit and potassium results: Hematocrit 39.9 11/27/2024 Potassium 4.0 11/27/2024 Relevant Problems ANESTHESIA (+) Sleep apnea CARDIO (+) HTN (hypertension) (+) Hemorrhoids ENDO (+) Type 2 diabetes mellitus without complication (HCC) GI (+) GERD (gastroesophageal reflux disease) -RENAL (+) Fatty liver PULMONARY (+) Sleep apnea Other (+) OA (osteoarthritis) I - PHYSICAL EVALUATION AIRWAY Patient intubated: No. Tracheostomy tube not present Mallampati: III. TM distance: >3 FB. Neck ROM: full ROM without neurological symptoms. Mouth openin FB. Short neck: no. Thick neck: yes Sullivan present: yes DENTAL Dental findings: teeth intact. II - ANESTHESIA PLAN ASA Score: 3 Anesthetic Plan: general Airway type: ETT NPO Status: adequate Monitoring Plan Monitoring plan: standard ASA. Post Procedure Analgesic Plan Postoperative analgesic plan: multimodal analgesia. Informed Consent Anesthetic risks, benefits, alternatives, personnel and consent discussed: yes. Patient / Responsible [employer] agrees to proceed: yes Patient / Surrogate agrees to blood products: blood products not planned Potential Anesthesia issues that may suggest increased risk of complications or contraindication to planned procedure: none. No vitals data found for the desired time range. Outpatient Medications as of 02/20/2025 Medication Sig - pantoprazole DR (PROTONIX) 40 mg tablet Take 1 tablet by mouth two times a day before meals at 6 am and 4 pm. Patient should start on August 22, 2023. - cloNIDine HCl (CATAPRES) 0.1 mg tablet Take 0.1 mg by mouth twice daily. - ASCORBIC ACID ORAL Take by mouth. - ferrous sulfate 325 mg (65 mg iron) tablet Take 325 mg by mouth daily with breakfast. - losartan (COZAAR) 100 mg tablet Take 100 mg by mouth once daily. - sucralfate (CARAFATE) 1 gram tablet Take 1 g by mouth four times daily. - promethazine (PHENERGAN) 12.5 mg tablet Take 12.5 mg by mouth every 6 hours as needed. - allopurinol (ZYLOPRIM) 100 mg tablet Take 100 mg by mouth once daily. - metFORMIN (GLUCOPHAGE) 1,000 mg tablet Take 1 tablet by mouth twice daily. - pioglitazone (ACTOS) 45 mg tablet Take 1 tablet by mouth once daily. - irbesartan (AVAPRO) 300 mg tablet Take 1 tablet by mouth daily at bedtime. - Lovastatin 40 mg tablet Take 1 tablet by mouth daily at bedtime. - metoprolol tartrate, short acting, (LOPRESSOR) 100 mg tablet Take 1 tablet by mouth twice daily. - venlafaxine XR 75 mg 24 hr capsule Take 225 mg by mouth once daily. - ASPIRIN 81 MG TAB Take one(1) tablet daily. No current facility-administered medications on file as of 02/20/2025. I have interviewed and examined the patient. I have reviewed the medical record and/or the pre-anesthesia evaluation, pertinent labs, and test results. This contains updated information obtained within 48 hours of Surgery/Procedure. SIGNATURE: Dmitriy Power MD PATIENT NAME: Ramsey Chance DATE: February 20, 2025 TIME: 10:10 AM CSN: [id number] Normal [facility] 02-20-2025 [facility] Letter Text Normal [facility] HISTORY PHYSICALon HISTORY PHYSICAL HNO ID: [id number] Author: KENYETTA DIMAS MD Service: General Surgery Author Type: Fellow Type: H&P Filed: 02/20/2025 10:17 Note Text: UPDATED HISTORY AND PHYSICAL EXAMINATION SERVICE DATE: 02/20/2025 SERVICE TIME: 10:16 AM The History and Physical (completed in the past 30 days) has been reviewed and the patient has been examined. The contents accurately reflect the patient's condition with the following additions or revisions since the HANDP was completed. Examination indicates no changes. GENERAL: Alert, no distress, cooperative LUNGS: Lungs clear to auscultation, Good diaphragmatic excursion CARDIAC: Normal S1 and S2; no rubs, murmurs, or gallops ABDOMEN: Abdomen soft, non-tender, BS normal, No masses or organomegaly This HANDP can be found in the EMR. Plan: EGD, possible endoscopic resection, EUS with Dr. Qiu. SIGNATURE: Kenyetta Dimas MD PATIENT NAME: Ramsey Chance DATE: February 20, 2025 TIME: 10:17 AM Kenyetta Dimas MD MPH FRCSC Fellow - Advanced Laparoscopic, Bariatric, and [place]ible [place] [address] Normal [facility] NURSING PROGon 02-20-2025 NURSING PROG HNO ID: [id number] Author: BEBE LOYA RN Service: ? Author Type: Registered Nurse Type: Nursing Progress Note Filed: 02/20/2025 13:06 Note Text: AMBULATORY PATIENT EDUCATION NOTE TOPIC: GI PROCEDURES: Esophagogastroduodenoscopy(EG D) for control of bleeding,dilation(any means),imaging,tube placement READINESS TO LEARN INSTRUCTION PROVIDED TO: Patient, readness to learn accessed prior to procedure COGNITIVE ABILITY: Alert and oriented PTED MOTIVATION TO LEARN: Eager FAMILY SUPPORT: High - Very involved in pt care IPATIENT LEARNS BEST BY: Individual Instruction Written Instruction - Hand-outs Verbal Instruction FACTORS AFFECTING LEARNING: None PHYSICAL LIMITATIONS AFFECTING LEARNING: None LEARNING RESPONSE METHOD OF INSTRUCTION: Individual instruction PATIENT / FAMILY RESPONSE: Verbalizes understanding of: WORSENING CONDITION-Signs and symptoms of a worsening condition that warrant a call to the physician FOLLOW-UP PLAN: Patient instructed to call with any further issues SUPPLEMENTAL MATERIAL: Procedure Discharge Instructions REFERRAL (RECOMMENDATION): None Electronically Signed By: Bebe Loya RN [facility] NURSING PROG HNO ID: [id number] Author: DI LAIRD RN Service: Nursing Author Type: Registered Nurse Type: Nursing Progress Note Filed: 02/20/2025 10:06 Note Text: PRE OP LEARNING ASSESSMENT PROCEDURE/SURGERY: GI PROCEDURES: EGD READINESS TO LEARN COGNITIVE ABILITY: Alert and oriented MOTIVATION TO LEARN: Interested FAMILY SUPPORT: High - Very involved in pt care PATIENT LEARNS BEST BY: Individual Instruction Verbal Instruction FACTORS AFFECTING LEARNING: None PHYSICAL LIMITATIONS AFFECTING LEARNING: None Electronically Signed By: Di Laird RN In Department: GASTROENTEROLOGY [facility] NURSING PROGon 02-13-2025 NURSING PROG HNO ID: [id number] Author: ASHLI DAVIS RN Service: ? Author Type: Registered Nurse Type: Nursing Progress Note Filed: 02/13/2025 13:14 Note Text: Attempted to reach the patient at the contact number that they provided [phone] (home) . Unable to speak with patient so without identifying the patient the following information was left on their voice mail: Date of procedure, location and report time A message was left informing the patient/patient paper sales representative they must have a responsible adult accompany them to their procedure; and remain in the endoscopy area until they are discharged. Failure to have a responsible adult accompany the patient to their procedure appointment prevents the use of sedation or anesthesia for their procedure; and can result in cancellation of the procedure NPO instructions were reviewed. Instructions to contact their primary care provider regarding their medications and which medications to stop in preparation for their procedure Instructions to completely read and follow the written instructions that they recieved regarding their procedure. Number to call with questions or concerns [phone] Number to call to cancel their procedure [phone] Ashli Davis RN [facility] Office Visiton 01-24-2025 Follow-up visit [id number] Bin Chance ilip F 1955 M Date Provider Department Center 01/24/2025 [id number] None Family History Problem Relation Age of Onset Heart attack Father Family Status - Relation Status Age at Father Mother Notes: kidney failure Level of Service:42088 [place] OFFICE/OUTPATIENT ESTABLISHED LOW MDM 20 MIN Reason for Visit and Comments: Follow-up [481392] Sleeping Problem [347] Normal [facility] Progress Noteon 01-24-2025 Progress Note Visit type: Establis hed Patient Reason for Visit: Follow-up and Sleeping Problem Assessment and Plan 1. Obstructive sleep apnea Subjective HPI: ROMULO- Resmed 30 day report- BiPAP 10/5 Compliant Average nightly use 9 hrs 49 mins AHI 0.1/hr No leaks Today, patient states he is doing well with PAP therapy; comfortable. He wakes up feeling refreshed. He is still waking up with dry mouth. No new neurological issues REVIEW OF SYSTEMS: Review of Systems All other systems reviewed and are negative. Allergies[1] Current Medications[2] Medical History[3] Social History Tobacco Use Smoking status: Former Smokeless tobacco: Never Substance Use Topics Alcohol use: Not Currently Surgical History[4] Family History[5] Objective Vitals: BP 131/78 (BP Location: Right arm, Patient Position: Sitting, BP Cuff Size: Adult) Pulse 51 Ht 5' 10" (1.778 m) Wt 245 lb 6.4 oz (111 kg) BMI 35.21 kg/m? General Appearance: Patient is in no apparent distress. Head is normocephalic, atraumatic Cardiovascular: Regular rate and rhythm. No heart murmurs. No carotid bruit Neurologic: Mentation: Alert and oriented x 3 to person, place and time. Speech and Language: Speech and language normal Concentration and Attention: Concentration normal Memory: Memory normal Fund of Knowledge: Fund of knowledge normal Cranial Nerves: II, III, IV, V, , VII, VIII, IX, X, XI, XII examined and were intact. Motor: Strength: Strength 5 out of 5 with normal tone Alternating Movements: Normal Cogwheel Rigidity: None Tone: Tone is normal Tremor / Involuntary Movements: None Deep Tendon Reflexes: 1 out of 4 symmetrical in all four limbs. Sensory: Normal sensation upper and lower extremities Coordination: Normal coordination upper and lower extremities Gait and Station: Station is normal. Gait is normal Data Reviewed and Summarized DIAGNOSTIC TESTING CBC: Lab Results Component Value Date WBC 8.8 02/01/2024 RBC 4.42 02/01/2024 HGB 13.4 02/01/2024 HCT 39.9 (L) 02/01/2024 MCV 90.3 02/01/2024 MCH 30.3 02/01/2024 MCHC 33.6 02/01/2024 RDW 13.6 02/01/2024 PLT 203 02/01/2024 MPV 11.2 02/01/2024 CMP: Lab Results Component Value Date NA 139 02/01/2024 K 4.4 02/01/2024 CL 104 02/01/2024 CO2 25 02/01/2024 BUN 22 (H) 02/01/2024 CREATININE 1.11 02/01/2024 CREATININE 1.02 08/11/2019 GLUCOSE 135 (H) 02/01/2024 PROT 7.3 08/11/2019 CALCIUM 9.6 02/01/2024 BILITOT 0.3 08/11/2019 ALKPHOS 67 08/11/2019 AST 44 08/11/2019 BMP: Lab Results Component Value Date NA 139 02/01/2024 K 4.4 02/01/2024 CL 104 02/01/2024 CO2 25 02/01/2024 BUN 22 (H) 02/01/2024 CREATININE 1.11 02/01/2024 CREATININE 1.02 08/11/2019 CALCIUM 9.6 02/01/2024 GLUCOSE 135 (H) 02/01/2024 PT/INR: Lab Results Component Value Date INR 1.1 08/20/2023 PTT: No results found for: "APTT", "PTT"[APTT} FLP: No results found for: "CHLPL", "TRIG", "HDL", "LDLCALC", "LDLDIRECT" TSH: No results found for: TSH VITAMIN B12: No results found for: "SZOOYSJP88" No results found for: "PHENYTOIN", "PHENOBARB", "VALPROATE", "CBMZ" No components found for: TOPIRA @RESULTINGLABINFO@ FERRITIN Date Value Ref Range Status 04/13/2023 49 18 - 464 ng/mL Final No results found for: "MARBELLA", "IMMUNOGLOBUL", "OLIGOBANDS" No results found for: "SSN34CH", "HEPCAB" No results found for: "CRP", "ANATITER", "ANCA" FERRITIN: Lab Results Component Value Date FERRITIN 49 04/13/2023 ---- US renal complete Narrative: [facility] 1955 [id number] Exam Date/Time: 03/13/2024 12:12 Procedure: US RENAL COMPLETE Ordering Provider: LEES JABER Reason For Exam: n20.1 EXAMINATION: RENAL ULTRASOUND HISTORY: Calculus of ureter TECHNIQUE: Sonography of the kidneys and urinary bladder was performed. Images were obtained and stored in a permanent archive. COMPARISON: CT abdomen and pelvis 02/01/2024 RESULT: Right Kidney: -Renal length: 13.1 cm -Parenchyma: Normal parenchymal echogenicity. Normal parenchymal thickness. -Collecting system: No hydronephrosis. -Calculus: Two echogenic shadowing foci consistent with nonobstructing renal calculi measuring up to 0.6 cm. -Lesion: 1.2 cm anechoic simple cyst with posterior acoustic enhancement laterally. Left Kidney: -Renal length: 13.1 cm -Parenchyma: Normal parenchymal echogenicity. Normal parenchymal thickness. -Collecting system: No hydronephrosis. -Calculus: No echogenic, shadowing calculus. -Lesion: None. Bladder: Decompressed. Bilateral renal jets noted. Impression: Nonobstructing right renal calculi. No hydronephrosis. Report Dictated on Electronically Signed By: Beltran Smith MD Electronically Signed Date/Time: 03/14/2024 8:26 AM EST @LASTAPPOINTMENTTHISPROV@ IMPRESSION and PLAN: Problem List Items Addressed This (more content not included)... Normal [facility] Basic metabolic 2000 panelon 11-27-2024 Anion gap [Moles/Vol] 13 mmol/L Normal 8-15 [facility] Comment on above: Order Comment: Speci men Type: BLOOD SPECIMEN Ordering Facility: [facility] Address: [address] [place] [address] Performed By: #### 2 4321-2 #### [facility] CLIA [id number] [address] [place] [address] [place] Calcium [Mass/Vol] 9.6 mg/dL Normal 8.5-10.2 [facility] Comment on above: Order Comment: Speci men Type: BLOOD SPECIMEN Ordering Facility: [facility] Address: [address] [place] [address] Performed By: #### 2 4321-2 #### [facility] CLIA [id number] [address] [place] [address] [place] Chloride [Moles/Vol] 103 mmol/L Normal 98-107 [facility] Comment on above: Order Comment: Speci men Type: BLOOD SPECIMEN Ordering Facility: [facility] Address: [address] [place] [address] Performed By: #### 2 4321-2 #### [facility] CLIA [id number] [address] [place] [address] [place] CO2 [Moles/Vol] 23 mmol/L Normal 22-30 [facility] Comment on above: Order Comment: Giannai men Type: BLOOD SPECIMEN Ordering Facility: [facility] Address: [address] [place] [address] Performed By: #### 2 4321-2 #### [facility] CLIA [id number] [address] [place] [address] [place] Creatinine [Mass/Vol] 1.37 mg/dL High 0.73-1.22 [facility] Comment on above: Order Comment: Giannai men Type: BLOOD SPECIMEN Ordering Facility: [facility] Address: [address] [place] [address] Performed By: #### 2 4321-2 #### [facility] CLIA [id number] [address] [place] [address] [place] eGFRcr SerPlBld CKD-EPI 2020 56 mL/min/1.73m??? Low >=60 [facility] Comment on above: Order Comment: Speci men Type: BLOOD SPECIMEN Ordering Facility: [facility] Address: [address] [place] [address] Result Comment: Nubia mated Glomerular Filtration Rate (eGFR) is calculated using the 2020 CKD-EPI creatinine equation. This equation utilizes serum creatinine, sex, and age as parameters. The creatinine assay has traceable calibration to isotope dilution-mass spectrometry. Refer to KDIGO guidelines for clinical interpretation. In patients with unstable renal function, e.g. those with acute kidney injury, the eGFR may not accurately reflect actual GFR. Performed By: #### 2 4321-2 #### [facility] CLIA [id number] [address] [place] [address] [place] Glucose [Mass/Vol] 130 mg/dL High 74-99 [facility] Comment on above: Order Comment: Oscar layne Type: BLOOD SPECIMEN Ordering Facility: [facility] Address: [address] [place] [address] Result Comment: The [place] [employer] (ADA) provides guidance for cutoff values for fasting glucose and random glucose. The ADA defines fasting as no caloric intake for at least 8 hours. Fasting plasma glucose results between 100 to 125 mg/dL indicate increased risk for diabetes (prediabetes). Fasting plasma glucose results greater than or equal to 126 mg/dL meet the criteria for diagnosis of diabetes. In the absence of unequivocal hyperglycemia, results should be confirmed by repeat testing. In a patient with classic symptoms of hyperglycemia or hyperglycemic crisis, random plasma glucose results greater than or equal to 200 mg/dL meet the criteria for diagnosis of diabetes. Reference: Standards of Medical Care in Diabetes 2016, [employer]. Diabetes Care. 2016.39(Suppl 1). Performed By: #### 2 4321-2 #### [facility] CLIA [id number] [address] [place] [address] [place] Potassium [Moles/Vol] 4.0 mmol/L Normal 3.7-5.1 [facility] Comment on above: Order Comment: Oscar layne Type: BLOOD SPECIMEN Ordering Facility: [facility] Address: [address] [place] [address] Performed By: #### 2 4321-2 #### [facility] CLIA [id number] [address] [place] [address] [place] Sodium [Moles/Vol] 139 mmol/L Normal 136-144 [facility] Comment on above: Order Comment: Oscar layne Type: BLOOD SPECIMEN Ordering Facility: [facility] Address: [address] [place] [address] Performed By: #### 2 4321-2 #### [facility] CLIA [id number] [address] [place] Urea nitrogen [Mass/Vol] 28 mg/dL High 9-24 [facility] Comment on above: Order Comment: Speci men Type: BLOOD SPECIMEN Ordering Facility: [facility] Address: [address] [place] [address] Performed By: #### 2 4321-2 #### [facility] CLIA [id number] [address] [place] CBC panel Auto (Bld)on 11-27 Erythrocyte distribution width (RBC) [Ratio] 13.1 % Normal 11.5-15.0 [facility] Comment on above: Order Comment: Speci men Type: BLOOD SPECIMEN Ordering Facility: [facility] Address: [address] [place] [address] Performed By: #### 5 8410-2 #### [facility] CLIA [id number] [address] Hematocrit (Bld) [Volume fraction] 39.9 % Normal 39.0-51.0 [facility] Comment on above: Order Comment: Speci men Type: BLOOD SPECIMEN Ordering Facility: [facility] Address: [address] [place] [address] Performed By: #### 5 8410-2 #### [facility] CLIA [id number] [address] Hemoglobin (Bld) [Mass/Vol] 13.4 g/dL Normal 13.0-17.0 [facility] Comment on above: Order Comment: Speci men Type: BLOOD SPECIMEN Ordering Facility: [facility] Address: [address] [place] [address] Performed By: #### 5 8410-2 #### [facility] CLIA [id number] [address] MCH (RBC) [Entitic mass] 29.5 pg Normal 26.0-34.0 [facility] Comment on above: Order Comment: Speci men Type: BLOOD SPECIMEN Ordering Facility: [facility] Address: [address] [place] [address] Performed By: #### 5 8410-2 #### [facility] CLIA [id number] [address] MCHC (RBC) [Mass/Vol] 33.6 g/dL Normal 30.5-36.0 [facility] Comment on above: Order Comment: Speci men Type: BLOOD SPECIMEN Ordering Facility: [facility] Address: [address] [place] [address] Performed By: #### 5 8410-2 #### [facility] CLIA [id number] [address] [place] MCV (RBC) [Entitic vol] 87.9 fL Normal 80.0-100.0 [facility] Comment on above: Order Comment: Speci men Type: BLOOD SPECIMEN Ordering Facility: [facility] Address: [address] [place] [address] Performed By: #### 5 8410-2 #### [facility] CLIA [id number] [address] Nucleated RBC (Bld) [#/Vol] 10*3/uL Normal <0.01 [facility] Comment on above: Order Comment: Speci men Type: BLOOD SPECIMEN Ordering Facility: [facility] Address: [address] [place] [address] Performed By: #### 5 8410-2 #### [facility] CLIA [id number] [address] Platelet mean volume (Bld) [Entitic vol] 11.2 fL Normal 9.0-12.7 [facility] Comment on above: Order Comment: Speci men Type: BLOOD SPECIMEN Ordering Facility: [facility] Address: [address] [place] [address] Performed By: #### 5 8410-2 #### [facility] CLIA [id number] [address] Platelets (Bld) [#/Vol] 213 10*3/uL Normal 150-400 [facility] Comment on above: Order Comment: Speci men Type: BLOOD SPECIMEN Ordering Facility: [facility] Address: [address] [place] [address] Performed By: #### 5 8410-2 #### [facility] CLIA [id number] [address] [place] RBC (Bld) [#/Vol] 4.54 10*6/uL Normal 4.20-6.00 [facility] Comment on above: Order Comment: Speci men Type: BLOOD SPECIMEN Ordering Facility: [facility] Address: [address] [place] [address] Performed By: #### 5 8410-2 #### [facility] CLIA [id number] [address] [place] WBC (Bld) [#/Vol] 9.22 10*3/uL Normal 3.70-11.00 [facility] Comment on above: Order Comment: Speci men Type: BLOOD SPECIMEN Ordering Facility: [facility] Address: [address] [place] [address] Performed By: #### 5 8410-2 #### [facility] CLIA [id number] [address] TYPE + SCREENon 11-27-[address] [facility] Comment on above: Order Comment: Speci men Type: BLOOD SPECIMEN Ordering Facility: [facility] Address: [address] [place] [address] Performed By: #### T SCR #### [facility] CLIA [id number] [address] Rh Nom (Bld) Negative [facility] Comment on above: Order Comment: Speci men Type: BLOOD SPECIMEN Ordering Facility: [facility] Address: [address] [place] [address] Performed By: #### T SCR #### [facility] CLIA [id number] [address] TYPE AND SCREEN EXPIRATION 11/30/2024 23:59 Normal [facility] Comment on above: Order Comment: Speci men Type: BLOOD SPECIMEN Ordering Facility: [facility] Address: [address] [place] [address] Performed By: #### T SCR #### [facility] [id number] [address] [place] [id number] [facility] Wilfredo 11-15-2024 CNPN Telephone (GASTMN) RAMSEY CHANCE ([id number]) 1955 M Date Time Provider Department 11/15/24 LAZARO QIU GASTAZ During your visit today, we recorded the following information about you: Latonya Yoon LPN 11/15/2024 12:53 PM Signed Called patient for details on reason for visit. Pt was unclear; called ofc of referring provider Dr. Ronan Del Castillo. M.A. will fax over most recent EGD for upcoming virtual visit. Krystin Matos 11/21/2024 8:01 AM Signed Scanned EGD report into chart Allergies As of Date: 11/15/2024 Noted Allergy Reaction JANUVIA (SITAGLIPTIN) 10/19/2013 14 - Other: See Comments Comments: Caused pancreatitis Date Reviewed: 08/21/2023 Reviewed by: Jazzy Shaver, RN - Fully Assessed Reason for Visit: Medication Problem [65] Prescriptions as of 11/21/[address] (PROTONIX) 40 mg tablet Take 1 tablet by mouth two times a day before meals at 6 am and 4 pm. Patient should start on August 22, 2023. - cloNIDine HCl (CATAPRES) 0.1 mg tablet Take 0.1 mg by mouth twice daily. - ASCORBIC ACID ORAL Take by mouth. - amLODIPine (NORVASC) 5 mg tablet Take 5 mg by mouth once daily. - ferrous sulfate 325 mg (65 mg iron) tablet Take 325 mg by mouth daily with breakfast. - losartan (COZAAR) 100 mg tablet Take 100 mg by mouth once daily. - sucralfate (CARAFATE) 1 gram tablet Take 1 g by mouth four times daily. - promethazine (PHENERGAN) 12.5 mg tablet Take 12.5 mg by mouth every 6 hours as needed. - allopurinol (ZYLOPRIM) 100 mg tablet Take 100 mg by mouth once daily. - metFORMIN (GLUCOPHAGE) 1,000 mg tablet Take 1 tablet by mouth twice daily. - pioglitazone (ACTOS) 45 mg tablet Take 1 tablet by mouth once daily. - irbesartan (AVAPRO) 300 mg tablet Take 1 tablet by mouth daily at bedtime. - Lovastatin 40 mg tablet Take 1 tablet by mouth daily at bedtime. - metoprolol tartrate, short acting, (LOPRESSOR) 100 mg tablet Take 1 tablet by mouth twice daily. - venlafaxine XR 75 mg 24 hr capsule Take 225 mg by mouth once daily. - ASPIRIN 81 MG TAB Take one(1) tablet daily. 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] 10/31/2013 Kidney stone [N20.0] 10/31/2013 02/16/2017 Cervical disc 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] 10/31/2013 Fatty liver [K76.0] 10/31/2013 Morbid obesity (HCC) [E66.01] 10/31/2013 Sleep apnea [G47.30] 10/31/2013 Verruca vulgaris [B07.9] 10/31/2013 02/16/2017 Neoplasm of uncertain behavior of skin of back *11/25/2013 Adenomatous polyp of colon [D12.6] 01/03/2014 Erectile dysfunction [N52.9] 01/04/2014 Esophageal stricture [K22.2] 08/02/2014 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 No hydronephrosis. Report Dictated on Electronically Signed By: Beltran Smith MD Electronically Signed Date/Time: 03/14/2024 8:26 AM [facility] RAD[facility]Y [facility] 1955 [id number] Exam Date/Time: 03/13/2024 12:12 Procedure: US RENAL COMPLETE Ordering Provider: LEES JABER Reason For Exam: n20.1 EXAMINATION: RENAL ULTRASOUND HISTORY: Calculus of ureter TECHNIQUE: Sonography of the kidneys and urinary bladder was performed. Images were obtained and stored in a permanent archive. COMPARISON: CT abdomen and pelvis 02/01/2024 RESULT: Right Kidney: -Renal length: 13.1 cm -Parenchyma: Normal parenchymal echogenicity. Normal parenchymal thickness. -Collecting system: No hydronephrosis. -Calculus: Two echogenic shadowing foci consistent with nonobstructing renal calculi measuring up to 0.6 cm. -Lesion: 1.2 cm anechoic simple cyst with posterior acoustic enhancement laterally. Left Kidney: -Renal length: 13.1 cm -Parenchyma: Normal parenchymal echogenicity. Normal parenchymal thickness. -Collecting system: No hydronephrosis. -Calculus: No echogenic, shadowing calculus. -Lesion: None. Bladder: Decompressed. Bilateral renal jets noted. [facility] RADIOLOGY SYSTEM Beltran Smith MD - 03/14/2024 Patient Name: RAMSEY CHANCE : 1955 Exam Date/Time: 03/13/2024 12:12 Procedure: US RENAL COMPLETE Ordering Provider: LEES JABER Reason For Exam: n20.1 EXAMINATION: RENAL ULTRASOUND HISTORY: Calculus of ureter TECHNIQUE: Sonography of the kidneys and urinary bladder was performed. Images were obtained and stored in a permanent archive. COMPARISON: CT abdomen and pelvis 02/01/2024 RESULT: Right Kidney: -Renal length: 13.1 cm -Parenchyma: Normal parenchymal echogenicity. Normal parenchymal thickness. -Collecting system: No hydronephrosis. -Calculus: Two echogenic shadowing foci consistent with nonobstructing renal calculi measuring up to 0.6 cm. -Lesion: 1.2 cm anechoic simple cyst with posterior acoustic enhancement laterally. Left Kidney: -Renal length: 13.1 cm -Parenchyma: Normal parenchymal echogenicity. Normal parenchymal thickness. -Collecting system: No hydronephrosis. -Calculus: No echogenic, shadowing calculus. -Lesion: None. Bladder: Decompressed. Bilateral renal jets noted. IMPRESSION: Nonobstructing right renal calculi. No hydronephrosis. Report Dictated on Electronically Signed By: Beltran Smith MD Electronically Signed Date/Time: 03/14/2024 8:26 AM EST [facility] US KidneyOrdered By: Beltran Brantley i on 03-14-2024 [facility] Work Phone: US RENAL COMPLETEon 03-14-20 US RENAL COMPLETE Patient Name: RAMSEY LUQUE : 1955 Exam Date/Time: 03/13/2024 12:12 Procedure: US RENAL COMPLETE Ordering Provider: LEES JABER Reason For Exam: n20.1 EXAMINATION: RENAL ULTRASOUND HISTORY: Calculus of ureter TECHNIQUE: Sonography of the kidneys and urinary bladder was performed. Images were obtained and stored in a permanent archive. COMPARISON: CT abdomen and pelvis 02/01/2024 RESULT: Right Kidney: -Renal length: 13.1 cm -Parenchyma: Normal parenchymal echogenicity. Normal parenchymal thickness. -Collecting system: No hydronephrosis. -Calculus: Two echogenic shadowing foci consistent with nonobstructing renal calculi measuring up to 0.6 cm. -Lesion: 1.2 cm anechoic simple cyst with posterior acoustic enhancement laterally. Left Kidney: -Renal length: 13.1 cm -Parenchyma: Normal parenchymal echogenicity. Normal parenchymal thickness. -Collecting system: No hydronephrosis. -Calculus: No echogenic, shadowing calculus. -Lesion: None. Bladder: Decompressed. Bilateral renal jets noted. IMPRESSION: Nonobstructing right renal calculi. No hydronephrosis. Report Dictated on Electronically Signed By: Beltran Smith MD Electronically Signed Date/Time: 03/14/2024 8:26 AM EST Normal [facility] US Kidneyon 03-13-2024 Radiology Study observation (narrative) [facility] BASIC METABOLIC PANELon 01-09 Anion gap [Moles/Vol] 11 mmol/L Normal 3-13 [facility] Comment on above: Performed By: #### L AB15, LAB99 #### Healthcare Administrator: OMAR VILLALBA ([id number]) [facility] [employer] ([place]) [address] [place] [address] Calcium [Mass/Vol] 9.6 mg/dL Normal 8.4-10.4 [facility] Comment on above: Performed By: #### L AB15, LAB99 #### Healthcare Administrator: OMAR VILLALBA ([phone]) [facility] [employer] ([place]) [address] [place] [address] Chloride [Moles/Vol] 104 mmol/L Normal 98-107 [facility] Comment on above: Performed By: #### L AB15, LAB99 #### Healthcare Administrator: OMAR VILLALBA ([id number]) [facility] [place] ([place]) [address] [place] [address] [place] CO2 [Moles/Vol] 25 mmol/L Normal 22-30 [facility] Comment on above: Performed By: #### L AB15, LAB99 #### Healthcare Administrator: OMAR VILLALBA ([id number]) [facility] [place] ([place]) [address] [place] [address] [place] Creatinine [Mass/Vol] 1.11 mg/dL Normal 0.66-1.25 [facility] Comment on above: Performed By: #### L AB15, LAB99 #### Healthcare Administrator: OMAR VILLALBA ([id number]) [facility] [place] ([place]) [address] [place] [address] [place] GLOMERULAR FILTRATION RATE ML/MIN/1.73 SQ M.PREDICTED 72.3 mL/min/1.73m*2 Normal >60.0 [facility] Comment on above: Result Comment: Calc ulation based on the Chronic Kidney Disease Epidemiology Collaboration (CKD-EPI) equation refit without adjustment for race ORDER COMMENTS: Moderately hemolyzed sample. Interpret results with caution. Performed By: #### L AB15, LAB99 #### Healthcare Administrator: OMAR VILLALBA ([id number]) [facility] [place] [facility] ([place]) [address] [place] [address] [place] Glucose [Mass/Vol] 135 mg/dL High 70-100 [facility] Comment on above: Performed By: #### L AB15, LAB99 #### Healthcare Administrator: OMAR VILLALBA ([id number]) [facility] [place] ([place]) [address] [place] [address] [place] Potassium [Moles/Vol] 4.4 mmol/L Normal 3.5-5.1 [facility] Comment on above: Performed By: #### L AB15, LAB99 #### Healthcare Administrator: OMAR VILLALBA ([id number]) [facility] [employer] ([place]) [address] Sodium [Moles/Vol] 139 mmol/L Normal 135-145 [facility] Comment on above: Performed By: #### L AB15, LAB99 #### Healthcare Administrator: OMAR VILLALBA ([id number]) [facility] [place] ([place]) [address] Urea nitrogen [Mass/Vol] 22 mg/dL High 9-20 [facility] Comment on above: Performed By: #### L AB15, LAB99 #### Healthcare Administrator: OMAR VILLALBA ([phone]) [facility] ([place]) [address] [place] [address] Basic metabolic 1998 panelon 02-01-2024 Anion gap [Moles/Vol] 11 mmol/L 3 - 13 mmol/L [facility] Calcium [Mass/Vol] 9.6 mg/dL 8.4 - 10. 4 mg/dL [facility] Chloride [Moles/Vol] 104 mmol/L 98 - 107 mmol/L [facility] CO2 [Moles/Vol] 25 mmol/L 22 - 30 mmol/L [facility] Creatinine [Mass/Vol] 1.11 mg/dL 0.66 - 1.25 mg/dL [facility] GFR/1.73 sq M.predicted (S/P/Bld) [Vol rate/Area] 72.3 mL/min - PINF [facility] Comment on above: Calculation based on the Chronic Kidney Disease Epidemiology Collaboration (CKD-EPI) equation refit without adjustment for race Glucose [Mass/Vol] 135 mg/dL High 70 - 100 mg/dL [facility] Interpretation and review of laboratory results Abnormal [facility] Potassium [Moles/Vol] 4.4 mmol/L 3.5 - 5.1 mmol/L [facility] Sodium [Moles/Vol] 139 mmol/L 135 - 145 mmol/L [facility] Urea nitrogen [Mass/Vol] 22 mg/dL High 9 - 20 mg/dL [facility] Moderately hemolyzed sample. Interpret results with caution. [facility] CBC W Auto Differential pane l (Bld)on 09-24-2024 Basophils (Bld) [#/Vol] 0.1 10*3/uL 0.0 - 0.2 10*3/uL [facility] Basophils/100 WBC (Bld) 0.6 % 0.0 - 2.0 % [facility] Eosinophils (Bld) [#/Vol] 0.4 10*3/uL 0.0 - 0.5 10*3/uL [facility] Eosinophils/100 WBC (Bld) 4.9 % 0.0 - 6.0 % [facility] Erythrocyte distribution width (RBC) [Ratio] 13.6 % 11.5 - 15.0 % [facility] Hematocrit (Bld) [Volume fraction] 39.9 % Low 40.0 - 52.0 % [facility] Hemoglobin (Bld) [Mass/Vol] 13.4 g/dL 13.0 - 18.0 g/dL [facility] Immature granulocytes (Bld) [#/Vol] 0.1 10*3/uL High NINF - 0.1 10*3/uL [facility] Immature granulocytes/100 WBC (Bld) 0.6 % 0.0 - 2.0 % [facility] Interpretation and review of laboratory results Abnormal [facility] Lymphocytes (Bld) [#/Vol] 1.4 10*3/uL 1.0 - 4.3 10*3/uL [facility] Lymphocytes/100 WBC (Bld) 16.0 % 15.0 - 45.0 % [facility] MCH (RBC) [Entitic mass] 30.3 pg 26.0 - 34.0 pg [facility] MCHC (RBC) [Mass/Vol] 33.6 % 30.5 - 36.0 % [facility] MCV (RBC) [Entitic vol] 90.3 fL 77.0 - 99.0 fL [facility] Monocytes (Bld) [#/Vol] 0.8 10*3/uL 0.0 - 0.9 10*3/uL [facility] Monocytes/100 WBC (Bld) 9.5 % 5.0 - 13.0 % [facility] Neutrophils (Bld) [#/Vol] 6.0 10*3/uL 1.8 - 7.5 10*3/uL [facility] Neutrophils/100 WBC (Bld) 68.4 % 38.0 - 82.0 % [facility] Nucleated RBC/100 WBC (Bld) [Ratio] 0.0 % [facility] Platelet mean volume (Bld) [Entitic vol] 11.2 fL 9.0 - 12.7 fL [facility] Comment on above: MPV is a calculated measurement using platelet volume ratio Platelets (Bld) [#/Vol] 203 10*3/uL 140 - 440 10*3/uL [facility] RBC (Bld) [#/Vol] 4.42 10*6/uL 4.40 - 5.9 0 10*6/uL [facility] WBC (Bld) [#/Vol] 8.8 10*3/uL 3.6 - 10.7 10*3/uL [facility] CBC WITH AUTO DIFFERENTIALon 02-01-2024 Basophils (Bld) [#/Vol] 0.1 10*3/uL Normal 0.0-0.2 [facility] Comment on above: Performed By: #### L [id number] #### Healthcare Administrator: OMAR VILLALBA ([id number]) [facility] [employer] (SWRL[place]) [address] [place] [address] [place] Basophils/100 WBC (Bld) 0.6 % Normal 0.0-2.0 [facility] Comment on above: Performed By: #### L [id number] #### Healthcare Administrator: OMAR VILLALBA ([id number]) [facility] [employer] (SWRL[place]) [address] [place] [address] [place] Eosinophils (Bld) [#/Vol] 0.4 10*3/uL Normal 0.0-0.5 [facility] Comment on above: Performed By: #### L [id number] #### Healthcare Administrator: OMAR VILLALBA ([id number]) [facility] [employer] (SW[place]) [address] [place] [address] [place] Eosinophils/100 WBC (Bld) 4.9 % Normal 0.0-6.0 [facility] Comment on above: Performed By: #### L [id number] #### Healthcare Administrator: OMAR VILLALBA ([id number]) [facility] [employer] (SW[place]) [address] [place] [address] Erythrocyte distribution width (RBC) [Ratio] 13.6 % Normal 11.5-15.0 [facility] Comment on above: Performed By: #### L [id number] #### Healthcare Administrator: OMAR VILLALBA ([id number]) [facility] ([place]) [address] [place] [address] Hematocrit (Bld) [Volume fraction] 39.9 % Low 40.0-52.0 [facility] Comment on above: Performed By: #### L [id number] #### Healthcare Administrator: OMAR VILLALBA ([id number]) [facility] ([place]) [address] [place] [address] Hemoglobin (Bld) [Mass/Vol] 13.4 g/dL Normal 13.0-18.0 [facility] Comment on above: Performed By: #### L [id number] #### Healthcare Administrator: OMAR VILLALBA ([id number]) [facility] ([place]) [address] [place] [address] IMMATURE GRANS % 0.6 % Normal 0.0-2.0 [facility] Comment on above: Performed By: #### L [id number] #### Healthcare Administrator: OMAR VILLALBA ([phone]) [facility] ([place]) [address] [place] [address] IMMATURE GRANS ABSOLUTE 0.1 10*3/uL High <0.1 [facility] Comment on above: Performed By: #### L [id number] #### Healthcare Administrator: OMAR VILLALBA ([id number]) [facility] ([place]) [address] [place] [address] [place] Lymphocytes (Bld) [#/Vol] 1.4 10*3/uL Normal 1.0-4.3 [facility] Comment on above: Performed By: #### L [id number] #### Healthcare Administrator: OMAR VILLALBA ([id number]) [facility] ([place]) [address] [place] [address] [place] Lymphocytes/100 WBC (Bld) 16.0 % Normal 15.0-45.0 [facility] Comment on above: Performed By: #### L [id number] #### Healthcare Administrator: OMAR VILLALBA ([id number]) [facility] ([place]) [address] [place] [address] MCH (RBC) [Entitic mass] 30.3 pg Normal 26.0-34.0 [facility] Comment on above: Performed By: #### L [id number] #### Healthcare Administrator: OMAR VILLALBA ([id number]) [facility] ([place]) [address] [place] [address] MCHC 33.6 % Normal 30.5-36.0 [facility] Comment on above: Performed By: #### L [id number] #### Healthcare Administrator: OMAR VILLALBA ([id number]) [facility] ([place]) [address] [place] [address] MCV (RBC) [Entitic vol] 90.3 fL Normal 77.0-99.0 [facility] Comment on above: Performed By: #### L [id number] #### Healthcare Administrator: OMAR VILLALBA ([id number]) [facility] [employer] ([place]) [address] [place] [address] [place] Monocytes (Bld) [#/Vol] 0.8 10*3/uL Normal 0.0-0.9 [facility] Comment on above: Performed By: #### L [id number] #### Healthcare Administrator: OMAR VILLALBA ([id number]) [facility] [employer] ([place]) [address] [place] [address] [place] Monocytes/100 WBC (Bld) 9.5 % Normal 5.0-13.0 [facility] Comment on above: Performed By: #### L [id number] #### Healthcare Administrator: OMAR VILLALBA ([id number]) [facility] [employer] [employer] ([place]) [address] [place] [address] NEUTROPHILS ABSOLUTE 6.0 10*3/uL Normal 1.8-7.5 [facility] Comment on above: Performed By: #### L [id number] #### Healthcare Administrator: OMAR VILLALBA ([id number]) [facility] ([place]) [address] [place] [address] Neutrophils/100 WBC (Bld) 68.4 % Normal 38.0-82.0 [facility] Comment on above: Performed By: #### L [id number] #### Healthcare Administrator: OMAR VILLALBA ([id number]) [facility] ([place]) [address] [place] [address] NRBC 0.0 /100 WBCs Normal 0.0-2.0 [facility] Comment on above: Performed By: #### L [id number] #### Healthcare Administrator: OMAR VILLALBA ([id number]) [facility] ([facility]) [address] [place] [address] Platelet mean volume (Bld) [Entitic vol] 11.2 fL Normal 9.0-12.7 [facility] Comment on above: Result Comment: MPV is a calculated measurement using platelet volume ratio Performed By: #### L [id number] #### Healthcare Administrator: OMAR VILLALBA ([id number]) [facility] [address] [address] [place] Platelets (Bld) [#/Vol] 203 10*3/uL Normal 140-440 [facility] Comment on above: Performed By: #### L [id number] #### Healthcare Administrator: OMAR VILLALBA ([id number]) [facility] [address] [place] [address] RBC (Bld) [#/Vol] 4.42 10*6/uL Normal 4.40-5.90 [facility] Comment on above: Performed By: #### L [id number] #### Healthcare Administrator: OMAR VILLALBA ([id number]) [facility]) [address] [place] [address] WBC (Bld) [#/Vol] 8.8 10*3/uL Normal 3.6-10.7 [facility] Comment on above: Performed By: #### L [id number] #### Healthcare Administrator: OMAR VILLALBA ([id number]) [facility]) [address] [place] [address] COMPLETE URINALYSISon 2023 BACTERIA (#/HPF) IN URINE Moderate Abnormal Negative [facility] Comment on above: Performed By: #### L [id number] #### Healthcare Administrator: OMAR VILLALBA ([id number]) [facility]) [address] [place] [address] BILIRUBIN, TOTAL PRESENCE IN URINE Negative Normal Negative [facility] Comment on above: Performed By: #### L [id number] #### Healthcare Administrator: OMAR VILLALBA ([id number]) [facility]) [address] [place] [address] Clarity (U) Turbid Abnormal Clear [facility] Comment on above: Performed By: #### L [id number] #### Healthcare Administrator: OMAR VILLALBA ([phone]) [facility]) [address] [place] [address] Color (U) Yellow Normal Lt. Yellow [facility] Comment on above: Performed By: #### L [id number] #### Healthcare Administrator: OMAR VILLALBA ([id number]) [facility] [place] [facility] ([facility]) [address] [place] [address] GLUCOSE (MG/DL) IN URINE Normal Normal Normal (<70) [facility] Comment on above: Performed By: #### L [id number] #### Healthcare Administrator: OMAR VILLALBA ([id number]) [facility] ([facility]) [address] [place] [address] HEMOGLOBIN PRESENCE IN URINE 1.0 mg/dL Abnormal Negative [facility] Comment on above: Performed By: #### L [id number] #### Healthcare Administrator: OMAR VILLALBA ([id number]) [facility] ([facility]) [address] [place] [address] Ketones Ql (U) Negative Normal Negative [facility] Comment on above: Performed By: #### L [id number] #### Healthcare Administrator: OMAR VILLALBA ([phone]) [facility] ([facility]) [address] [place] [address] LEUKOCYTE ESTERASE PRESENCE IN URINE BY TEST STRIP Negative Normal Negative [facility] Comment on above: Performed By: #### L [id number] #### Healthcare Administrator: OMAR VILLALBA ([id number]) [facility] ([facility]) [address] [place] [address] [place] MUCUS (#/LPF) IN URINE SEDIMENT Moderate Abnormal Negative [facility] Comment on above: Performed By: #### L [id number] #### Healthcare Administrator: OMAR VILLALBA ([id number]) [facility] [place] ([facility]) [address] [place] [address] [place] NITRITE PRESENCE IN URINE Negative Normal Negative [facility] Comment on above: Performed By: #### L [id number] #### Healthcare Administrator: OMAR VILLALBA ([id number]) [facility] ([facility]) [address] [place] [address] pH (U) 5.5 [pH] Normal 5.0-8.0 [facility] Comment on above: Performed By: #### L [id number] #### Healthcare Administrator: OMAR VILLALBA ([id number]) [facility] [place] ([facility]) [address] [place] [address] [place] Protein (U) [Mass/Vol] 30 mg/dL Abnormal Negative [facility] Comment on above: Performed By: #### L [id number] #### Healthcare Administrator: OMAR VILLALBA ([id number]) [facility] ([facility]) [address] [place] [address] [place] RBC (#/HPF) IN URINE SEDIMENT 26-50 Abnormal 0-2 [facility] Comment on above: Performed By: #### L [id number] #### Healthcare Administrator: OMAR VILLALBA ([id number]) [facility] [address] [place] [address] Specific gravity (U) [Rel density] 1.027 Normal 1.005-1.030 [facility] Comment on above: Performed By: #### L [id number] #### Healthcare Administrator: OMAR VILLALBA ([id number]) [facility] [address] [place] [address] Specimen volume (U) 12 mL Normal [facility] Comment on above: Performed By: #### L [id number] #### Healthcare Administrator: OMAR VILLALBA ([id number]) [facility]) [address] [place] [address] [place] SQUAMOUS EPITHELIAL CELLS (#/HPF) IN URINE SEDIMENT Negative Normal 3-5 [facility] Comment on above: Performed By: #### L [id number] #### Healthcare Administrator: OMAR VILLALBA ([id number]) [facility]) [address] [place] [address] [place] URIC ACID (URATE) CRYSTALS (#/HPF) IN URINE Moderate Abnormal Negative [facility] Comment on above: Performed By: #### L [id number] #### Healthcare Administrator: OMAR VILLALBA ([id number]) [facility] [address] [place] [address] [place] UROBILINOGEN (MG/DL) IN URINE Normal Normal Normal (0-1) [facility] Comment on above: Performed By: #### L [id number] #### Healthcare Administrator: OMAR VILLALBA ([id number]) [facility] ([facility]) [address] [place] [address] WBC (LEUKOCYTE) (#/HPF) IN URINE SEDIMENT Negative Normal 0-5 [facility] Comment on above: Performed By: #### L [id number] #### Healthcare Administrator: OMAR VILLALBA ([id number]) [facility] ([facility]) [address] [place] [address] CT ABDOMEN PELVIS WO IV CONT RASTon 02-01-2024 CT ABDOMEN PELVIS WO IV CONTRAST Patient Name: RAMSEY CHANCE : 1955 Exam Date/Time: 02/01/2024 13:54 Procedure: CT ABDOMEN PELVIS WO IV CONTRAST Ordering Provider: HAGAN MICHAEL Reason For Exam: Flank pain, kidney stone suspected CT abdomen and pelvis without contrast History: Flank pain Technique: 3 mm axial images from the lung bases to just below the pubic symphysis and without intravenous contrast Dose reduction was employed with automated exposure control. Comparison: 09/16/2018 Mild left hydronephrosis. A 4 mm stone in the left ureterovesical junction. Two stones in the right kidney measuring 2 mm. The liver, spleen, pancreas, and adrenals are normal. A few sigmoid diverticula. No bowel inflammation or obstruction. No free fluid. IMPRESSION: Mild left hydronephrosis. A 4 mm stone in the left ureterovesical junction. Report Dictated on Electronically Signed By: Zach Mujica MD Electronically Signed Date/Time: 02/01/2024 2:07 PM EDT Patient to room 15 with c/o left flank pain, that radiates around to his abdomen and his back that started on Wednesday. Patient has a history of kidney stones. V/S obtained, call light within reach. Normal [facility] CT Abdomen WO contraston Mild left hydronephrosis. A 4 mm stone in the left ureterovesical junction. Report Dictated on Electronically Signed By: Zach Mujica MD Electronically Signed Date/Time: 02/01/2024 2:07 PM EDT [facility] Patient Name: RAMSEY LUQUE : 1955 Exam Date/Time: 02/01/2024 13:54 Procedure: CT ABDOMEN PELVIS WO IV CONTRAST Ordering Provider: HAGAN MICHAEL Reason For Exam: Flank pain, kidney stone suspected CT abdomen and pelvis without contrast History: Flank pain Technique: 3 mm axial images from the lung bases to just below the pubic symphysis and without intravenous contrast Dose reduction was employed with automated exposure control. Comparison: 09/16/2018 Mild left hydronephrosis. A 4 mm stone in the left ureterovesical junction. Two stones in the right kidney measuring 2 mm. The liver, spleen, pancreas, and adrenals are normal. A few sigmoid diverticula. No bowel inflammation or obstruction. No free fluid. [facility] Zach Mujica MD - 02/01/2024 Patient Name: RAMSEY CHANCE : 1955 Exam Date/Time: 02/01/2024 13:54 Procedure: CT ABDOMEN PELVIS WO IV CONTRAST Ordering Provider: HAGAN MICHAEL Reason For Exam: Flank pain, kidney stone suspected CT abdomen and pelvis without contrast History: Flank pain Technique: 3 mm axial images from the lung bases to just below the pubic symphysis and without intravenous contrast Dose reduction was employed with automated exposure control. Comparison: 09/16/2018 Mild left hydronephrosis. A 4 mm stone in the left ureterovesical junction. Two stones in the right kidney measuring 2 mm. The liver, spleen, pancreas, and adrenals are normal. A few sigmoid diverticula. No bowel inflammation or obstruction. No free fluid. IMPRESSION: Mild left hydronephrosis. A 4 mm stone in the left ureterovesical junction. Report Dictated on Electronically Signed By: Zach Mujica MD Electronically Signed Date/Time: 02/01/2024 2:07 PM EDT [facility] Study observation (narrative) [facility] Abdomen WO contrastOrdere d By: Zach Mujica on 02-01-2024 [facility] Work Phone: ED Nursing Noteon 02-01-2024 ED Nursing Note Patient to room 15 w ith c/o left flank pain, that radiates around to his abdomen and his back that started on Wednesday. Patient has a history of kidney stones. V/S obtained, call light within reach. Normal [facility] [employer] [facility] ED Provider Noteon ED Provider Note EMERGENCY DEPARTMENT ENCOUNTER Pt Name: Ramsey Chance Birthdate 1955 Date of evaluation: 02/01/2024 ED Provider: Feng Hagan MD CHIEF COMPLAINT Chief Complaint Patient presents with Flank Pain HISTORY OF PRESENT ILLNESS (Location/Symptom, Timing/Onset, Context/Setting, Quality, Duration, Modifying Factors, Severity) Note limiting factors. I wore appropriate PPE for the entirety of this encounter. HPI Ramsey Chance is a 68 y.o. who presents to the emergency department with chief complaint of flank and abdominal pain. States it started 2 days ago denies any injury or fall. He has a history of kidney stones and it feels similar. He states the pain radiates to the left side of the abdomen. No scrotal testicular pain. States he had a little bit of burning with urination but no dark or bloody urine. Denies upper abdominal or right-sided abdominal pain. Denies chest pain shortness of breath fevers chills. Slight nausea. He has a history of hypertension hyperlipidemia diabetes as well. He denies any weakness numbness tingling in the legs or constipation diarrhea or saddle anesthesia. Nursing Notes were reviewed. Limitations to history: None Outside historians: Significant other REVIEW OF SYSTEMS Review of Systems Constitutional: Negative for chills and fever. HENT: Negative for ear pain and sore throat. Eyes: Negative for pain and visual disturbance. Respiratory: Negative for cough and shortness of breath. Cardiovascular: Negative for chest pain and palpitations. Gastrointestinal: Positive for abdominal pain and nausea. Negative for vomiting. Genitourinary: Positive for dysuria and flank pain. Negative for hematuria. Musculoskeletal: Negative for arthralgias and back pain. Skin: Negative for color change and rash. Neurological: Negative for seizures and syncope. All other systems reviewed and are negative. Pertinent positives and negatives as per HPI. PAST MEDICAL HISTORY Past Medical History: Diagnosis Date Depression Diabetes mellitus (HCC) GERD (gastroesophageal reflux disease) Hyperlipidemia Hypertension Sleep apnea Vertigo SURGICAL HISTORY Past Surgical History: Procedure Laterality Date CHOLECYSTECTOMY ENDOSCOPY VISIT OUTPATIENT (HISTORICAL) 08/2023 OTHER SURGICAL HISTORY Pins put in and then removed for leg fracture SHOULDER SURGERY CURRENT MEDICATIONS Previous Medications ALLOPURINOL (ZYLOPRIM) 100 MG TABLET Take 100 mg by mouth. AMLODIPINE (NORVASC) 5 MG TABLET Take 5 mg by mouth daily. ASCORBIC ACID (VITAMIN C) 250 MG TABLET Take 250 mg by mouth daily. CLONIDINE (CATAPRES) 0.1 MG TABLET Take 0.1 mg by mouth 2 times daily. FERROUS SULFATE 325 (65 FE) MG TABLET Take 325 mg by mouth. LORATADINE-PSEUDOEPHEDRINE ER (CLARITIN-D 24-HOUR) 10-240 MG 24 HR TABLET Take 1 tablet by mouth daily. Do not crush, chew, or split. LOSARTAN (COZAAR) 100 MG TABLET 100 mg. LOVASTATIN (MEVACOR) 40 MG TABLET 40 mg. METFORMIN (GLUCOPHAGE) 1000 MG TABLET Take 1,000 mg by mouth. METOPROLOL TARTRATE (LOPRESSOR) 100 MG TABLET 100 mg. PANTOPRAZOLE (PROTONIX) 40 MG EC TABLET Take 40 mg by mouth daily. PIOGLITAZONE (ACTOS) 30 MG TABLET Take 30 mg by mouth daily. SERTRALINE HCL PO Take by mouth. ALLERGIES Bee venom and Sitagliptin FAMILY HISTORY Family History Problem Relation Name Age of Onset Heart attack Father SOCIAL HISTORY Social History Socioeconomic History Marital status: Tobacco Use Smoking status: Former Smokeless tobacco: Never Substance and Sexual Activity Alcohol use: Not Currently Drug use: Never SCREENINGS PHYSICAL EXAM ED Triage Vitals Temp Heart Rate Resp BP 02/01/24 1226 02/01/24 1227 02/01/24 1227 02/01/24 1227 36.5 ?C (97.7 ?F) 55 16 (!) 151/73 SpO2 Temp Source Heart Rate Source Patient Position 02/01/24 1227 02/01/24 1226 02/01/24 1227 -- 97 % Oral Monitor BP Location FiO2 (%) -- -- Physical Exam Vitals and nursing note reviewed. Constitutional: General: He is not in acute distress. Appearance: He is well-developed. He is obese. He is not ill-appearing or diaphoretic. HENT: Head: Normocephalic and atraumatic. Eyes: General: No scleral icterus. Extraocular Movements: Extraocular movements intact. Conjunctiva/sclera: Conjunctivae normal. Pupils: Pupils are equal, round, and reactive to light. Cardiovascular: Rate and Rhythm: Normal rate and regular rhythm. Pulmonary: Effort: Pulmonary effort is normal. No respiratory distress. Breath sounds: Normal breath sounds. Abdominal: General: There is no distension. Palpations: Abdomen is soft. There is no mass. Tenderness: There is abdominal tenderness. There is no right CVA tenderness, left CVA tenderness, guarding or rebound. Comments: Tenderness to the left lumbar musculature laterally no midline tenderness of the CTL spine, no overlying skin changes Musculoskeletal: General: N (more content not included)... Normal [facility] LIPASEon 02-01-2024 Lipase [Catalytic activity/Vol] 218 U/L Normal 23-300 [facility] Comment on above: Performed By: #### L [id number], [id number] #### Healthcare Administrator: OMAR VILLALBA ([id number]) [facility] [address] [place] [address] Laboratory - Chemistry and C hemistry - challengeon 02-01-2024 Lipase [Catalytic activity/Vol] 218 U/L 23 - 300 U/L [facility] Lipase [Catalytic activity/V ol]on 02-01-2024 Interpretation and review of laboratory results Normal [facility] No Panel Informationon 01-31 [facility] Urinalysis complete panel (U )Ordered By: Joey Farmer on 02-01-2024 Bacteria LM.HPF (Urine sed) [#/Area] Moderate Abnormal Negative /HPF [facility] Bilirubin Ql (U) Negative Negative mg/dL [facility] Clarity (U) Turbid Abnormal Clear [facility] Color (U) Yellow Lt. Yellow [facility] Epithelial cells.squamous LM.HPF (Urine sed) [#/Area] Negative [facility] Glucose Ql (U) Normal Normal (<70) mg/dL [facility] Hemoglobin Ql (U) 1.0 mg/dL Abnormal Negative [facility] Interpretation and review of laboratory results Abnormal [facility] Ketones (U) [Mass/Vol] Negative Negative mg/dL [facility] Leukocyte esterase Test strip Ql (U) Negative Negative Mary [place]/uL [facility] Mucus LM.HPF (Urine sed) [#/Area] Moderate Abnormal Negative /LPF [facility] Nitrite Ql (U) Negative Negative [facility] th pH (U) 5.5 [pH] 5.0 - 8.0 pH [facility] Protein (U) [Mass/Vol] 30 mg/dL Abnormal Negative [facility] RBC LM.HPF (Urine sed) [#/Area] 26-50 Abnormal [facility] Specific gravity (U) [Rel density] 1.027 1.005 - 1.030 [facility] Urate crystals LM.HPF (Urine sed) [#/Area] Moderate Abnormal Negative /HPF [facility] Urobilinogen (U) [Mass/Vol] Normal Normal (0-1) mg/dL [facility] Volume, Urine 12 mL [facility] h WBC LM.HPF (Urine sed) [#/Area] Negative [facility] CBC W Auto Differential pane l (Bld)Ordered By: Gabriela Burt on 04-13-2023 Basophils (Bld) [#/Vol] 0.0 10*3/uL 0.0 - 0.2 10*3/uL [facility] Basophils/100 WBC (Bld) 0.5 % 0.0 - 2.0 % [facility] Eosinophils (Bld) [#/Vol] 0.4 10*3/uL 0.0 - 0.5 10*3/uL [facility] Eosinophils/100 WBC (Bld) 5.3 % 1.0 - 6.0 % [facility] Erythrocyte distribution width (RBC) [Ratio] 13.2 % 11.5 - 14.5 % [facility] Hematocrit (Bld) [Volume fraction] 41.3 % 40.0 - 52.0 % [facility] Hemoglobin (Bld) [Mass/Vol] 13.7 g/dL 13.0 - 18.0 g/dL [facility] Immature granulocytes (Bld) [#/Vol] 0.1 10*3/uL High NINF - 0.0 10*3/uL [facility] Immature granulocytes/100 WBC (Bld) 0.7 % High NINF - 0.0 % [facility] Interpretation and review of laboratory results Abnormal [facility] Lymphocytes (Bld) [#/Vol] 1.8 10*3/uL 1.0 - 4.3 10*3/uL [facility] Lymphocytes/100 WBC (Bld) 21.9 % 20.0 - 40.0 % [facility] MCH (RBC) [Entitic mass] 29.8 pg 26.0 - 34.0 pg [facility] MCHC (RBC) [Mass/Vol] 33.2 % 32.0 - 36.0 % [facility] MCV (RBC) [Entitic vol] 89.8 fL 80.0 - 98.0 fL [facility] Monocytes (Bld) [#/Vol] 0.6 10*3/uL 0.0 - 0.8 10*3/uL [facility] Monocytes/100 WBC (Bld) 7.5 % 2.0 - 10.0 % [facility] Neutrophils (Bld) [#/Vol] 5.2 10*3/uL 1.8 - 7.0 10*3/uL [facility] Neutrophils/100 WBC (Bld) 64.1 % 40.0 - 80.0 % [facility] Platelet mean volume (Bld) [Entitic vol] 10.2 fL 7.4 - 12.4 fL [facility] Comment on above: MPV is a calculated measurement using platelet volume ratio Platelets (Bld) [#/Vol] 222 10*3/uL 140 - 440 10*3/uL [facility] RBC (Bld) [#/Vol] 4.60 10*6/uL 4.40 - 5.9 0 10*6/uL [facility] WBC (Bld) [#/Vol] 8.1 10*3/uL 3.6 - 10.7 10*3/uL [facility] Ferritinon 04-13-2023 Ferritin [Mass/Vol] 49 ng/mL 18 - 464 ng/mL [facility] Ferritin [Mass/Vol]on 2022 Interpretation and review of laboratory results Normal [facility] Iron and Iron binding capaci ty panelon 04-13-2023 Interpretation and review of laboratory results Normal [facility] Iron [Mass/Vol] 111 ug/dL 49 - 181 ug/dL [facility] Iron binding capacity [Mass/Vol] 404 ug/dL 261 - 497 ug/dL [facility] Iron saturation [Mass fraction] 27 % 15 - 50 % [facility] CBC W Auto Differential pane l (Bld)Ordered By: Aleida Robertson on 12-16-2022 Basophils (Bld) [#/Vol] 0.1 10*3/uL 0.0 - 0.2 10*3/uL [facility] Basophils/100 WBC (Bld) 0.7 % 0.0 - 2.0 % [facility] Eosinophils (Bld) [#/Vol] 0.5 10*3/uL 0.0 - 0.5 10*3/uL [facility] Eosinophils/100 WBC (Bld) 6.2 % High 1.0 - 6.0 % [facility] Erythrocyte distribution width (RBC) [Ratio] 13.5 % 11.5 - 14.5 % [facility] Hematocrit (Bld) [Volume fraction] 37.9 % Low 40.0 - 52.0 % [facility] Hemoglobin (Bld) [Mass/Vol] 12.8 g/dL Low 13.0 - 18.0 g/dL [facility] Immature granulocytes (Bld) [#/Vol] 0.0 10*3/uL NINF - 0.0 10*3/uL [facility] Immature granulocytes/100 WBC (Bld) 0.4 % High NINF - 0.0 % [facility] Interpretation and review of laboratory results Abnormal [facility] Lymphocytes (Bld) [#/Vol] 1.8 10*3/uL 1.0 - 4.3 10*3/uL [facility] Lymphocytes/100 WBC (Bld) 24.9 % 20.0 - 40.0 % [facility] MCH (RBC) [Entitic mass] 29.7 pg 26.0 - 34.0 pg [facility] MCHC (RBC) [Mass/Vol] 33.8 % 32.0 - 36.0 % [facility] MCV (RBC) [Entitic vol] 87.9 fL 80.0 - 98.0 fL [facility] Monocytes (Bld) [#/Vol] 0.6 10*3/uL 0.0 - 0.8 10*3/uL [facility] Monocytes/100 WBC (Bld) 8.6 % 2.0 - 10.0 % [facility] Neutrophils (Bld) [#/Vol] 4.3 10*3/uL 1.8 - 7.0 10*3/uL [facility] Neutrophils/100 WBC (Bld) 59.2 % 40.0 - 80.0 % [facility] Platelet mean volume (Bld) [Entitic vol] 10.2 fL 7.4 - 12.4 fL [facility] Comment on above: MPV is a calculated measurement using platelet volume ratio Platelets (Bld) [#/Vol] 198 10*3/uL 140 - 440 10*3/uL [facility] RBC (Bld) [#/Vol] 4.31 10*6/uL Low 4.40 - 5.9 0 10*6/uL [facility] WBC (Bld) [#/Vol] 7.3 10*3/uL 3.6 - 10.7 10*3/uL [facility] Ferritinon 12-16-2022 Ferritin [Mass/Vol] 50 ng/mL 18 - 464 ng/mL [facility] Ferritin [Mass/Vol]on 2022 Interpretation and review of laboratory results Normal [facility] Iron and Iron binding capaci ty panelon 12-16-2022 Interpretation and review of laboratory results Normal [facility] Iron [Mass/Vol] 73 ug/dL 49 - 181 ug/dL [facility] Iron binding capacity [Mass/Vol] 387 ug/dL 261 - 497 ug/dL [facility] Iron saturation [Mass fraction] 19 % 15 - 50 % [facility] Lower Ext Art Exam w/o Exerc anahi 09-15-2022 Lower Ext Art Exam w/o Exercis [facility] [address] [place] [address] Lower Ext Art Exam w/o Exercis 09/15/22 1259 MR#: [id number] Acct: [id number] Name: RAMSEY CHANCE Rep #: [id number] : 1955 67 From: Pascual Perez MD Attending Dr: Edgar Bello, CANE STRIPPER-C Status: REG CLI Ordering Dr: Edgar Bello NP [facility] [employer] Date: 3 Location: CVS Sex: M C Admitted: Reason For Study: PAD Procedure A bilateral lower extremity continuous wave Doppler with analog waveform analysis,segmental pressures,and ankle brachial indexes without exercise. Left Segmental Pressures Left brachial= 128mmHg. Left posterior tibial artery = 187mmHg. Left dorsalis pedis artery = 179mmHg. Left digit = 146 mmHg. The left dorsalis pedis waveforms are triphasic. Right Segmental Pressures Right brachial= 128mmHg. Right posterior tibial artery = 190mmHg. Right dorsalis pedis artery = 174mmHg. Right digit = 150 mmHg. The right dorsalis pedis waveforms are triphasic. The right posterior tibial artery waveforms are triphasic. Indices The right ankle brachial index by the dorsalis pedis is 1.36. The right ankle brachial index by the posterior tibial artery is 1.48. The right digital-brachial index is 1.17. The left ankle brachial index by the dorsalis pedis is 1.40. The left ankle brachial index by the posterior tibial artery is 1.46. The left digital-brachial index is 1.14. VL/Lower Ext Art Exam w/o Exercis Interpretation Summary Right KP 1.48, normal. TBI and Doppler/PVR waveforms of the right leg normal at rest. Left KP 1.46, normal. TBI and Doppler/PVR waveforms of the left leg normal at rest. Ordering Physician: Edgar Bello Referring Physician: EDGAR BELLO Performed By: Cassidy Armstrong RVT 09/15/22 9667 Date Pascual Perez MD CC: CANE [employer]IPPER-C Edgar Bello Date Dictated: 09/15/22 1259 Date Transcribed: 09/15/22 1627 Director Data Processing: Signed Normal [facility] Venous Duplex US - Axel [facility] 09-15-2022 Venous Duplex US - Axel Extrem [facility] [place] [address] Venous Duplex US - Axel Extrem 09/15/22 1301 MR#: [id number] Acct: [id number] Name: RAMSEY CHANCE Rep #: [id number] : 1955 67 From: Pascual Perez MD Attending Dr: Edgar Bello, CANE STRIPPER-C Status: REG CLI Ordering Dr: Edgar Bello CANE STRIPPER CANE STRIPPER-C Date: 3 Location: CVS Sex: M C Admitted: Reason For Study: Swelling RIGHT LEFT GSV is normal. GSV is normal. CFV is compressible, spontaneous, phasic, CFV is compressible, spontaneous, phasic, competent and demonstrates normal competent, and demonstrates normal augmentation. augmentation. FV is compressible, spontaneous, phasic, FV is compressible, spontaneous, phasic, competent and demonstrates normal competent and demonstrates normal augmentation. augmentation. POP V is compressible, spontaneous, phasic, POP V is compressible, spontaneous, phasic, competent and demonstrates normal competent and demonstrates normal augmentation. augmentation. T/P Trunk is compressible. T/P Trunk is compressible. PTV is compressible. PTV is compressible. RT PerV is compressible. LT PerV is compressible. Procedure This is a venous duplex using B-mode, color flow and spectral Doppler. Exam performed in department. VL/Venous Duplex US - Axel Extrem Interpretation Summary Deep veins of the bilateral lower extremities are patent and compressible segmentally. There is no evidence of bilateral lower extremity deep vein thrombosis. The bilateral great saphenous veins appear patent and compressible segmentally. Ordering Physician: Edgar Bello Referring Physician: Edgar Bello Performed By: Cassidy Armstrong, RVT 09/15/22 1634 Date Pascual Perez MD CC: CANE STRIPPER-C Edgar Bello Date Dictated: 09/15/22 1301 Date Transcribed: 09/15/22 1634 Director Data Processing: Signed Normal [facility] Culture, urineOrdered By: Do ra Bello on 09-03-2022 Bacteria identified Cx Nom (U) Culture exhibits no growth. [facility] Urine Cultureon 09-02-2022 [facility] Culture exhibits no growth. Normal [facility] Comment on above: Performed By: #### M 100.2200 #### [facility] [address] [facility] [place], [address] Knee 4 or More Viewson 08-21 Knee 4 or More Views [facility] [address] [place] [address] Knee 4 or More Views MR#: [id number] Acct: [id number] Name: RAMSEY CHANCE Rep #: [id number] : 1955 M 67 From: Yovany Hamlin MD PCP: THEO Ramos Status: DEP AMB Study: Knee 4 or More Views Date of Exam: 08/21/22 Exam# [id number] Ordering Dr: Marissa Silveira PA STUDY: X-RAY - RIGHT KNEE REASON FOR EXAM: Male, 67 years old. Pain TECHNIQUE: 4 view(s) of the knee. COMPARISON: None. FINDINGS: Old healed fracture in the mid femur. Normal visualized proximal tibia and fibula. Normal proximal tibiofibular articulation. There is mild degenerative arthrosis of the medial femorotibial compartment. Normal lateral femorotibial compartment. Normal patellofemoral articulation. The soft tissue structures are unremarkable. RAD/Knee 4 or More Views IMPRESSION: Mild medial compartment arthrosis Electronically Signed: Tio Hamlin MD at 11:12 EDT Reading Location ID and State: [address] [place] [address] , Service support , CC: THEO Bello; MAIRA Silveira Director Data Processing: Signed Normal [facility] Orthopedic Visit Reporton Orthopedic Visit Report [facility] [address] [place] [address] [address] [place] [address] OFFICE VISIT Date of Service: 08/21/22 MR#: [id number] Acct: [id number] Name: RAMSEY CHANCE Rep #: [id number] : 1955 Provider: MAIRA Silveira Age/Sex: 67/M Location: [facility] Status: Signed Intake Vital Signs 06/03/22 15:03 08/21/22 10:35 Height 5 ft 11 in 5 ft 11 in Weight: 258 lb 261 lb 4 oz BMI 35.9 36.4 BP 120/80 Blood Pressure Location Rt brachial Position Sitting Respiration 18 Pulse 63 Pulse Source Doppler Temp 98.6 F Pulse Oximetry (%) 93 Oxygen Delivery Method room air Intake Visit Reasons: LEFT KNEE Is patient in pain?: Yes Pain scale (1-10): 12 Allergies sitagliptin [From Mayradha] Allergy (Verified 08/21/22 10:36) caused pancreatitis Medications allopurinol 100 mg tablet 100 mg PO QDAY 04/16/17 [History Confirmed 08/21/22] lovastatin 40 mg tablet 40 mg PO QHS 04/16/17 [History Confirmed 08/21/22] metformin 1,000 mg tablet 1,000 mg PO BID 04/16/17 [History Confirmed 08/21/22] metoprolol tartrate 100 mg tablet 100 mg PO BID 04/16/17 [History Confirmed 08/21/22] pantoprazole 40 mg tablet,delayed release 40 mg PO QDAY 04/16/17 [History Confirmed 08/21/22] ascorbic acid (vitamin C) 250 mg tablet 250 mg PO QDAY 10/19/17 [History Confirmed 08/21/22] cholecalciferol (vitamin D3) 10 mcg/drop (400 unit/drop) oral drops (Baby Vitamin D3) 400 unit PO QDAY 10/19/17 [History Confirmed 08/21/22] venlafaxine 37.5 mg capsule,extended release 24 hr 37.5 mg PO QDAY 10/19/17 [History Confirmed 08/21/22] amlodipine 10 mg tablet 10 mg PO DAILY #90 tabs 06/14/18 [Rx Confirmed 08/21/22] ferrous sulfate 325 mg (65 mg iron) tablet 325 mg PO Q OTHER DAY 08/14/19 [History Confirmed 08/21/22] triamcinolone acetonide 0.5 % topical cream 1 applic topical BID #30 grams 08/14/19 [Rx Confirmed 08/21/22] fluocinonide-emollient 0.05 % topical cream (Fluocinonide-E) 1 applic topical BID-QID PRN dermatitis #30 grams 02/19/20 [Rx Confirmed 08/21/22] metoclopramide HCl 10 mg tablet 10 mg PO QHS 06/18/20 [History Confirmed 08/21/22] pioglitazone 45 mg tablet 45 mg PO DAILY 07/08/20 [History Confirmed 08/21/22] cefdinir 300 mg capsule 300 mg PO BID #20 caps 06/03/22 [Rx Confirmed 08/21/22] prednisone 20 mg tablet 40 mg PO DAILY #14 tabs 06/03/22 [Rx Confirmed 08/21/22] PFSH Medical History Anemia Arthritis of knee, left Arthritis of right knee Ascites Atopic eczema Cat bite of right foot Chronic back pain Essential (primary) hypertension Fracture of thoracic spine Gall stones GERD (gastroesophageal reflux disease) GERD (gastroesophageal reflux disease) Hyperlipidemia Incomplete right bundle branch block (RBBB) Kidney stones Left anterior fascicular block Maxillary sinusitis Nausea and vomiting Obesity Obstructive sleep apnea Otitis media, left Pancreatitis Pancreatitis Peptic ulcer Pharyngitis Pruritic dermatitis Pruritic dermatitis Right upper quadrant abdominal pain Seasonal allergies Solar dermatitis Type 2 diabetes mellitus without complications Weight gain Surgical History H/O kyphoplasty History of cholecystectomy History of esophageal dilatation (05/2020) History of esophagogastroduodenoscopy (EGD) S/P rotator cuff repair Family History Father CAD (coronary artery disease) from [place] Social History alcohol intake: current substance use type: does not use what type of physical activity do you participate in: walking frequency: 1-2 times per week HPI LEFT KNEE Details: Parts of this documentation were recorded by a scribe, this documentation accurately reflects the service provided and the decisions made by me, MAIRA Luque 08/21/22 1033. RAMSEY CHANCE is a 67 year old M here today new patient for right knee pain, referred by Edgar Bello. States that he was taking his 100lb chocolate lab outside and the dog went out before him and he landed right on his knee. The injury happened 1 1/2 week to 3 weeks ago. States that his pain is over his medial knee. States that stairs increases his pain along with walking. Denies previous injuries. States that he saw Dr. Tarango in 2016. States that he has popping and clicking in his knee that he has had for about 22 years. Denies taking anything for pain and does not like to take oral medication if he does not have to. States that he has been using ice on his knee. States that he has had cortisone injections and gel injections which did give him relief in the past. States that it has been a few years since the injections that was done by Elisabet (more content not included)... Normal [facility] CBC W Auto Differential pane l (Bld)Ordered By: Karyn Farias on 04-30-2022 Basophils (Bld) [#/Vol] 0.1 10*3/uL 0.0 - 0.2 10*3/uL [facility] Basophils/100 WBC (Bld) 0.6 % 0.0 - 2.0 % [facility] Eosinophils (Bld) [#/Vol] 0.5 10*3/uL 0.0 - 0.5 10*3/uL [facility] Eosinophils/100 WBC (Bld) 5.5 % 1.0 - 6.0 % [facility] Erythrocyte distribution width (RBC) [Ratio] 13.2 % 11.5 - 14.5 % [facility] Hematocrit (Bld) [Volume fraction] 39.9 % Low 40.0 - 52.0 % [facility] Hemoglobin (Bld) [Mass/Vol] 13.4 g/dL 13.0 - 18.0 g/dL [facility] Immature granulocytes (Bld) [#/Vol] 0.0 10*3/uL NINF - 0.0 10*3/uL [facility] Immature granulocytes/100 WBC (Bld) 0.5 % High NINF - 0.0 % [facility] Interpretation and review of laboratory results Abnormal [facility] Lymphocytes (Bld) [#/Vol] 2.1 10*3/uL 1.0 - 4.3 10*3/uL [facility] Lymphocytes/100 WBC (Bld) 23.7 % 20.0 - 40.0 % [facility] MCH (RBC) [Entitic mass] 29.9 pg 26.0 - 34.0 pg [facility] MCHC (RBC) [Mass/Vol] 33.6 % 32.0 - 36.0 % [facility] MCV (RBC) [Entitic vol] 89.1 fL 80.0 - 98.0 fL [facility] Monocytes (Bld) [#/Vol] 0.8 10*3/uL 0.0 - 0.8 10*3/uL [facility] Monocytes/100 WBC (Bld) 8.9 % 2.0 - 10.0 % [facility] Neutrophils (Bld) [#/Vol] 5.3 10*3/uL 1.8 - 7.0 10*3/uL [facility] Neutrophils/100 WBC (Bld) 60.8 % 40.0 - 80.0 % [facility] Platelet mean volume (Bld) [Entitic vol] 9.9 fL 7.4 - 12.4 fL [facility] Comment on above: MPV is a calculated measurement using platelet volume ratio Platelets (Bld) [#/Vol] 225 10*3/uL 140 - 440 10*3/uL [facility] RBC (Bld) [#/Vol] 4.48 10*6/uL 4.40 - 5.9 0 10*6/uL [facility] WBC (Bld) [#/Vol] 8.7 10*3/uL 3.6 - 10.7 10*3/uL [facility] CBC with Auto Differentialon 07-09-2021 Absolute Baso # 0.1 10*3/uL 0.0 - 0.2 10*3/uL [facility] Absolute Neut # 4.7 10*3/uL 1.8 - 7.0 10*3/uL [facility] Basophils/100 WBC (Bld) 1.0 % 0.0 - 2.0 % [facility] Eosinophils (Bld) [#/Vol] 0.6 10*3/uL High 0.0 - 0.5 10*3/uL [facility] Eosinophils/100 WBC (Bld) 8.2 % High 1.0 - 6.0 % [facility] Granulocytes/100 WBC (Bld) 59.4 % 40.0 - 80.0 % [facility] Hematocrit (Bld) [Volume fraction] 38.5 % Low 40.0 - 52.0 % [facility] Hemoglobin.gastroi ntestinal spec 1 Ql (Stl) 13.1 g/dL 13.0 - 18.0 g/dL [facility] Interpretation and review of laboratory results Abnormal [facility] Lymphocytes (Bld) [#/Vol] 1.6 10*3/uL 1.0 - 4.3 10*3/uL [facility] Lymphocytes/100 WBC (Bld) 20.7 % 20.0 - 40.0 % [facility] MCH (RBC) [Entitic mass] 30.1 pg 26.0 - 34.0 pg [facility] MCHC (RBC) [Mass/Vol] 34.1 % 32.0 - 36.0 % [facility] MCV (RBC) [Entitic vol] 88.3 fL 80.0 - 98.0 fL [facility] Monocytes (Bld) [#/Vol] 0.8 10*3/uL 0.0 - 0.8 10*3/uL [facility] Monocytes/100 WBC (Bld) 10.7 % High 2.0 - 10.0 % [facility] Platelet distribution width (Bld) [Ratio] 14.1 % 11.5 - 14.5 % [facility] Platelet mean volume (Bld) [Entitic vol] 7.9 fL 7.4 - 10.4 fL [facility] Platelets (Bld) [#/Vol] 229 10*3/uL 140 - 440 10*3/uL [facility] RBC (Bld) [#/Vol] 4.36 10*6/uL Low 4.40 - 5.9 0 10*6/uL [facility] WBC (Bld) [#/Vol] 7.9 10*3/uL 3.6 - 10.7 10*3/uL [facility] Test Performed by [facility], [address] , [place], [place] [id number] [place] [address] LAB [facility] Hemogram w/ Autodiffon 07-09 Abs Baso Cnt 0.1 10*3/uL Normal 0.0-0.2 [facility] Comment on above: Performed By: #### H DEMETRA SALINAS #### [facility] [address] [place] [address] Abs Neutrophile Cnt 4.7 10*3/uL Normal 1.8-7.0 [facility] Comment on above: Performed By: #### H DEMETRA SALINAS #### [facility] [address] [place] [address] Basophils/100 WBC (Bld) 1.0 % Normal 0.0-2.0 [facility] Comment on above: Performed By: #### H DEMETRA SALINAS #### [facility] [address] [place] [address] Eosinophils (Bld) [#/Vol] 0.6 10*3/uL High 0.0-0.5 [facility] Comment on above: Performed By: #### H BRAEDEN SALINASBC #### [facility] [address] [place] [address] Eosinophils/100 WBC (Bld) 8.2 % High 1.0-6.0 [facility] Comment on above: Performed By: #### H BRAEDEN SALINASBC #### [facility] [address] [place] [address] Erythrocyte distribution width (RBC) [Ratio] 14.1 % Normal 11.5-14.5 [facility] Comment on above: Performed By: #### H BRAEDEN SALINASBC #### [facility] [address] [place] [address] Granulocytes/100 WBC (Bld) 59.4 % Normal 40.0-80.0 [facility] Comment on above: Performed By: #### H DEMETRA SALINAS #### [facility] [address] [place] [address] Hematocrit (Bld) [Volume fraction] 38.5 % Low 40.0-52.0 [facility] Comment on above: Performed By: #### H BRAEDEN SALINASBC #### [facility] [address] [place] [address] Hemoglobin (Bld) [Mass/Vol] 13.1 g/dL Normal 13.0-18.0 [facility] Comment on above: Performed By: #### H DEMETRA SALINAS #### [facility] [address] [place] [address] Lymphocytes (Bld) [#/Vol] 1.6 10*3/uL Normal 1.0-4.3 [facility] Comment on above: Performed By: #### DEMETRA HOWARD #### [facility] [address] [place] [address] Lymphocytes/100 WBC (Bld) 20.7 % Normal 20.0-40.0 [facility] Comment on above: Performed By: #### BRAEDEN HOWARDBC #### [facility] [address] [place] [address] MCH (RBC) [Entitic mass] 30.1 pg Normal 26.0-34.0 [facility] Comment on above: Performed By: #### H BRAEDEN SALINASBC #### [facility] [address] [place] [address] MCHC 34.1 % Normal 32.0-36.0 [facility] Comment on above: Performed By: #### H RITA FEIBC #### [facility] [address] [place] [address] MCV (RBC) [Entitic vol] 88.3 fL Normal 80.0-98.0 [facility] Comment on above: Performed By: #### H RITA FEIBC #### [facility] [address] [place] [address] Monocytes (Bld) [#/Vol] 0.8 10*3/uL Normal 0.0-0.8 [facility] Comment on above: Performed By: #### BRAEDEN HOWARDBC #### [facility] [address] [place] [address] Monocytes/100 WBC (Bld) 10.7 % High 2.0-10.0 [facility] Comment on above: Performed By: #### H RITA FEIBC #### [facility] [address] [place] [address] Platelet mean volume (Bld) [Entitic vol] 7.9 fL Normal 7.4-10.4 [facility] Comment on above: Performed By: #### H RITA FEIBC #### [facility] [address] [place] [address] Platelets (Bld) [#/Vol] 229 10*3/uL Normal 140-440 [facility] Comment on above: Performed By: #### H RITA FEIBC #### [facility] [address] [place] [address] RBC (Bld) [#/Vol] 4.36 10*6/uL Low 4.40-5.90 [facility] Comment on above: Performed By: #### H RITA FEIBC #### [facility] [address] [place] [address] WBC (Bld) [#/Vol] 7.9 10*3/uL Normal 3.6-10.7 [facility] Comment on above: Performed By: #### H RITA FEIBC #### [facility] [address] [place] [address] Iron AND TIBCon 07-09-2021 Saturation 22 % Normal 15-50 [facility] Comment on above: Performed By: #### H RITA FEIBC #### [facility] [address] [place] [address] Total Iron Binding Cap. 379 ug/dL Normal 261-497 [facility] Comment on above: Performed By: #### H RITA DEMETRA #### [facility] [address] [place] [address] Iron, Total 84 ug/dL Normal 49-181 [facility] Comment on above: Performed By: #### H DEMETRA SALINAS #### [facility] [address] [place] [address] Iron and TIBCon 07-09-2021 Iron [Mass/Vol] 84 ug/dL 49 - 181 ug/dL [facility] Sat 22 % 15 - 50 % [facility] TIBC 379 ug/dL 261 - 497 ug/dL [facility] Test Performed by [facility], [address] , [place], [place] [id number] [place] [address] LAB [facility] CBC Auto Differentialon Absolute Baso # 0.1 10*3/uL 0.0 - 0.2 10*3/uL [facility] Absolute Neut # 5.4 10*3/uL 1.8 - 7.0 10*3/uL [facility] Basophils/100 WBC (Bld) 0.8 % 0.0 - 2.0 % [facility] Eosinophils (Bld) [#/Vol] 0.3 10*3/uL 0.0 - 0.5 10*3/uL [facility] Eosinophils/100 WBC (Bld) 3.3 % 1.0 - 6.0 % [facility] Granulocytes/100 WBC (Bld) 66.3 % 40.0 - 80.0 % [facility] Hematocrit (Bld) [Volume fraction] 40.2 % 40.0 - 52.0 % [facility] Hemoglobin.gastroi ntestinal spec 1 Ql (Stl) 13.7 g/dL 13.0 - 18.0 g/dL [facility] Interpretation and review of laboratory results Abnormal [facility] Lymphocytes (Bld) [#/Vol] 1.6 10*3/uL 1.0 - 4.3 10*3/uL [facility] Lymphocytes/100 WBC (Bld) 19.8 % Low 20.0 - 40.0 % [facility] MCH (RBC) [Entitic mass] 29.7 pg 26.0 - 34.0 pg [facility] MCHC (RBC) [Mass/Vol] 34.1 % 32.0 - 36.0 % [facility] MCV (RBC) [Entitic vol] 87.1 fL 80.0 - 98.0 fL [facility] Monocytes (Bld) [#/Vol] 0.8 10*3/uL 0.0 - 0.8 10*3/uL [facility] Monocytes/100 WBC (Bld) 9.8 % 2.0 - 10.0 % [facility] Platelet distribution width (Bld) [Ratio] 14.4 % 11.5 - 14.5 % [facility] Platelet mean volume (Bld) [Entitic vol] 8.2 fL 7.4 - 10.4 fL [facility] Platelets (Bld) [#/Vol] 273 10*3/uL 140 - 440 10*3/uL [facility] RBC (Bld) [#/Vol] 4.62 10*6/uL 4.40 - 5.9 0 10*6/uL [facility] WBC (Bld) [#/Vol] 8.2 10*3/uL 3.6 - 10.7 10*3/uL [facility] Test Performed by [facility], [address] [facility] LAB [facility] Hemogram w/ Autodiffon 05-14 Abs Baso Cnt 0.1 10*3/uL Normal 0.0-0.2 [facility] Comment on above: Performed By: #### H DEMETRA SALINAS #### [place] [address] Abs Neutrophile Cnt 5.4 10*3/uL Normal 1.8-7.0 [facility] Comment on above: Performed By: #### H DEMETRA SALINAS #### [facility] [address] [facility] [place] [address] Basophils/100 WBC (Bld) 0.8 % Normal 0.0-2.0 [facility] Comment on above: Performed By: #### H DEMETRA SALINAS #### [address] [place] [address] Eosinophils (Bld) [#/Vol] 0.3 10*3/uL Normal 0.0-0.5 [facility] Comment on above: Performed By: #### H DEMETRA SALINAS #### [address] [place] [address] Eosinophils/100 WBC (Bld) 3.3 % Normal 1.0-6.0 [facility] Comment on above: Performed By: #### H DEMETRA SALINAS #### [facility] [address] [place] [address] Erythrocyte distribution width (RBC) [Ratio] 14.4 % Normal 11.5-14.5 [facility] Comment on above: Performed By: #### H DEMETRA SALINAS #### [facility] [address] [place] [address] Granulocytes/100 WBC (Bld) 66.3 % Normal 40.0-80.0 [facility] Comment on above: Performed By: #### H DEMETRA SALINAS #### [facility] [address] [place] [address] Hematocrit (Bld) [Volume fraction] 40.2 % Normal 40.0-52.0 [facility] Comment on above: Performed By: #### H DEMETRA SALINAS #### [facility] [address] [place] [address] Hemoglobin (Bld) [Mass/Vol] 13.7 g/dL Normal 13.0-18.0 [facility] Comment on above: Performed By: #### H BRAEDEN SALINASBC #### [facility] [address] [place] [address] Lymphocytes (Bld) [#/Vol] 1.6 10*3/uL Normal 1.0-4.3 [facility] Comment on above: Performed By: #### H BRAEDEN SALINASBC #### [facility] [address] [place] [address] Lymphocytes/100 WBC (Bld) 19.8 % Low 20.0-40.0 [facility] Comment on above: Performed By: #### H RITA FEIBC #### [facility] [address] [place] [address] MCH (RBC) [Entitic mass] 29.7 pg Normal 26.0-34.0 [facility] Comment on above: Performed By: #### H EMDF, FEIBC #### [facility] [address] [place] [address] MCHC 34.1 % Normal 32.0-36.0 [facility] Comment on above: Performed By: #### H GUYF, FEIBC #### [facility] [address] [place] [address] MCV (RBC) [Entitic vol] 87.1 fL Normal 80.0-98.0 [facility] Comment on above: Performed By: #### H RITA FEIBC #### [facility] [address] [place] [address] Monocytes (Bld) [#/Vol] 0.8 10*3/uL Normal 0.0-0.8 [facility] Comment on above: Performed By: #### H RITA FEIBC #### [facility] [address] [place] [address] Monocytes/100 WBC (Bld) 9.8 % Normal 2.0-10.0 [facility] Comment on above: Performed By: #### H RITA FEIBC #### [facility] [address] [place] [address] Platelet mean volume (Bld) [Entitic vol] 8.2 fL Normal 7.4-10.4 [facility] Comment on above: Performed By: #### H RITA FEIBC #### [facility] [address] [place] [address] Platelets (Bld) [#/Vol] 273 10*3/uL Normal 140-440 [facility] Comment on above: Performed By: #### H EMDMartínez FEIBC #### [facility] [address] [place] [address] RBC (Bld) [#/Vol] 4.62 10*6/uL Normal 4.40-5.90 [facility] Comment on above: Performed By: #### H EMDF, FEIBC #### [facility] [address] [place] [address] WBC (Bld) [#/Vol] 8.2 10*3/uL Normal 3.6-10.7 [facility] Comment on above: Performed By: #### H EMDF, FEIBC #### [facility] [address] [place] [address] Iron AND TIBCon 05-14-2021 Saturation 16 % Normal 15-50 [facility] Comment on above: Performed By: #### H EMDF, FEIBC #### [facility] [address] [place] [address] Total Iron Binding Cap. 377 ug/dL Normal 261-497 [facility] Comment on above: Performed By: #### H EMDF, FEIBC #### [facility] [address] [place] [address] Iron, Total 60 ug/dL Normal 49-181 [facility] Comment on above: Performed By: #### H EMDF, FEIBC #### [facility] [address] [place] [address] Iron and TIBCon 05-14-2021 Iron [Mass/Vol] 60 ug/dL 49 - 181 ug/dL [facility] Sat 16 % 15 - 50 % [facility] TIBC 377 ug/dL 261 - 497 ug/dL [facility] Test Performed by [facility], [address] , [address] LAB [facility] PROGRESSon 09-06-2019 PROGRESS HNO ID: [id number] Author: Feng Dempsey Jr. Service: ? Author Type: Physician Type: Progress Notes Filed: 09/06/2019 12:32 PM Note Text: NEW PATIENT VIRTUAL VISIT Consent for this telehealth visit obtained from the patient prior to initiation of the encounter. The patient acknowledges the limitations of telehealth and agrees to proceed. The patient understands that this visit will be documented in the medical record as any other patient encounter. PATIENT INFO: Ramsey Chance 64 year old REFERRING PROVIDER: CHRIS ANDREW PCP: Edgar Bello NP HPI Ramsey Chance is a 64 year old male refer for thickened bladder, adrenal lesion and renal cyst. Gall baldder removed a couple years ago. Ever since has had issues with nausea and vomiting. Almost every morning. Ct scan showed incidental 2.1cm left adrenal myelolipoma, subcentimeter renal csyts and very mildly thickened bladder wall with stranding. No luts. No hematuria. No fever. No pain. Review of Systems Constitutional: Negative. Respiratory: Negative. Cardiovascular: Negative. Gastrointestinal: Negative. Genitourinary: Negative. Skin: Negative. Neurological: Negative. Psychiatric/Behavioral: Negative. LAB: Creatinine Date Value Ref Range Status 05/26/2018 0.80 0.73 - 1.22 mg/dL Final No results found for: PSA Glucose, Urine (mg/dL) Date Value 10/31/2014 Negative Bilirubin, Urine (no units) Date Value 10/31/2014 Negative Ketones, Urine (no units) Date Value 10/31/2014 Negative Specific [place], Ur (no units) Date Value 10/31/2014 1.021 Hemoglobin/Blood,Ur ( ) Date Value 10/31/2014 Negative pH, Urine (no units) Date Value 10/31/2014 5.0 Protein, Urine (mg/dL) Date Value 10/31/2014 Negative Nitrites (no units) Date Value 10/31/2014 Negative WBC, Urine (/HPF) Date Value 10/31/2014 0-5 MEDICATIONS: cloNIDine HCl (CATAPRES) 0.1 mg tablet Take 0.1 mg by mouth twice daily. ASCORBIC ACID ORAL Take by mouth. amLODIPine (NORVASC) 5 mg tablet Take 5 mg by mouth once daily. ferrous sulfate 325 mg (65 mg iron) tablet Take 325 mg by mouth daily with breakfast. losartan (COZAAR) 100 mg tablet Take 100 mg by mouth once daily. sucralfate (CARAFATE) 1 gram tablet Take 1 g by mouth four times daily. promethazine (PHENERGAN) 12.5 mg tablet Take 12.5 mg by mouth every 6 hours as needed. allopurinol (ZYLOPRIM) 100 mg tablet Take 100 mg by mouth once daily. metFORMIN (GLUCOPHAGE) 1,000 mg tablet Take 1 tablet by mouth twice daily. pioglitazone (ACTOS) 45 mg tablet Take 1 tablet by mouth once daily. irbesartan (AVAPRO) 300 mg tablet Take 1 tablet by mouth daily at bedtime. Lovastatin 40 mg tablet Take 1 tablet by mouth daily at bedtime. metoprolol tartrate, short acting, (LOPRESSOR) 100 mg tablet Take 1 tablet by mouth twice daily. pantoprazole DR (PROTONIX) 40 mg tablet Take 1 tablet by mouth once daily. venlafaxine XR 75 mg 24 hr capsule Take 225 mg by mouth once daily. ASPIRIN 81 MG TAB Take one(1) tablet daily. HISTORIES PAST MEDICAL HISTORY Diagnosis Date - Acute pancreatitis 10/19/2013 From Januvia - Agitation 10/31/2013 - Allergic rhinitis 10/31/2013 - Anxiety 10/31/2013 - Cervical disc herniation 10/31/2013 Right C5-C6 - Chronic pain 10/19/2013 Tail bone and right leg Controlled substance agreement signed. Had a metal darrell in the femur, w/u done in past on coccyx pain. - Depression 10/19/2013 - Diverticulosis 10/31/2013 - DM type 2 (diabetes mellitus, type 2) (HCC) - Fatty liver 10/31/2013 - GERD (gastroesophageal reflux disease) 10/19/2013 - Hemorrhoids 10/31/2013 - HTN (hypertension) - Hx of colonic polyps 10/31/2013 Dr. Walsh: Adenomatous-4 tublar - Hyperlipidemia 10/19/2013 - Keratoconus 10/31/2013 - Kidney stone 10/31/2013 - OA (osteoarthritis) 10/19/2013 Sever in sacrum from an injury in early . Knees and cervical spine. - Obesity 10/31/2013 - Sciatica 10/19/2013 Secondary to sacral issues - Sleep apnea 10/31/2013 On CPAP @ 6 cm - Verruca vulgaris 10/31/2013 FAMILY HISTORY Problem Relation Age of Onset - Cancer Sister kidney - Heart Father cardiomyopathy - Diabetes Father - Alcohol/Drug Father alcohol - Diabetes Mother - Lipids Mother SOCIAL HISTORY Social History Tobacco Use - Smoking status: Former Smoker Packs/day: 2.00 Years: 25.00 Pack years: 50.00 Types: Cigarettes Last attempt to quit: 05/04/1990 Years since quittin.3 - Smokeless tobacco: Never Used Substance Use Topics - Alcohol use: Yes Alcohol/week: 12.5 standard drinks Types: 5 Mixed Drinks per week Comment: weekend drinker - Drug use: No ASSESSMENT: (D17.79) Adrenal myelolipoma (primary encounter diagnosis) (R30.0) Dysuria PLAN: Reassured concerning all CT findings Understands these things would not cause N/V Urine cx for bladder wall thickening and stranding Set for prn Feng Dempsey Jr, MD [facility] CBC Auto Differentialon 04-0 Absolute Baso # 0.1 10*3/uL 0 - 0.2 10*3/uL [facility], [place] Comment on above: Test Performed by [facility], [address] , [place], [place] [address] Absolute Neut # 4.4 10*3/uL 1.8 - 7 10*3/uL [facility], [place] Comment on above: Test Performed by [email or web address], [address] , [place], [place] [address] Basophils/100 WBC (Bld) 0.8 % 0 - 2 % [facility], [place] Comment on above: Test Performed by [email or web address], [address] , [place] [address] Eosinophils (Bld) [#/Vol] 0.5 10*3/uL 0 - 0.5 10*3/uL [facility], [place] Comment on above: Test Performed by [email or web address], [address] , [place] [address] Eosinophils/100 WBC (Bld) 6.5 % High 1 - 6 % [facility], [place] Comment on above: Test Performed by [email or web address], [address] , [place] [address] Erythrocyte distribution width (RBC) [Ratio] 15.4 % High 11.5 - 14.5 % [facility], [place] Comment on above: Test Performed by [email or web address], [address] , [place], [place] [address] Granulocytes/100 WBC (Bld) 59.0 % 40 - 80 % [facility], [place] Comment on above: Test Performed by [email or web address], [address] , [place], [place] [address] Hematocrit (Bld) [Volume fraction] 40.3 % 40 - 52 % [facility], [place] Comment on above: Test Performed by [facility], [address] , [place] [address] Hemoglobin (Bld) [Mass/Vol] 13.5 g/dL 13 - 18 g/dL [facility], [place] Comment on above: Test Performed by [facility], [address] , [place] [address] Interpretation and review of laboratory results Abnormal [place], [place] Lymphocytes (Bld) [#/Vol] 1.7 10*3/uL 1 - 4.3 10*3/uL [place] Comment on above: Test Performed by [facility], [address] , [place], [place] [address] Lymphocytes/100 WBC (Bld) 22.7 % 20 - 40 % [place] Comment on above: Test Performed by [facility], [address] , [place], [place] [address] MCH (RBC) [Entitic mass] 29.4 pg 26 - 34 pg [place] Comment on above: Test Performed by [facility], [address] , [place] [address] MCHC (RBC) [Mass/Vol] 33.5 % 32 - 36 % [place] Comment on above: Test Performed by [facility], [address] , [place] [address] MCV (RBC) [Entitic vol] 87.7 fL 80 - 98 fL [place] Comment on above: Test Performed by [facility], [address] , [place] [address] Monocytes (Bld) [#/Vol] 0.8 10*3/uL 0 - 0.8 10*3/uL [place] Comment on above: Test Performed by [facility], [address] , [place], [place] [address] Monocytes/100 WBC (Bld) 11.0 % High 2 - 10 % [place] Comment on above: Test Performed by [facility], [address] , [place], [place] [address] Platelet mean volume (Bld) [Entitic vol] 8.6 fL 7.4 - 10.4 fL [place] Comment on above: Test Performed by [facility], [address] , [place] [id number] Platelets (Bld) [#/Vol] 254 10*3/uL 140 - 440 10*3/uL [place] Comment on above: Test Performed by [facility], [address] , [place] [address] RBC (Bld) [#/Vol] 4.59 10*6/uL 4.4 - 5.9 10*6/uL [place] Comment on above: Test Performed by [facility], [address] , [place] [address] WBC (Bld) [#/Vol] 7.5 10*3/uL 3.6 - 10.7 10*3/uL [place] Test Performed by [facility], [address] , [address] Comprehensive Metabolic Pane magi 08-11-2019 Albumin [Mass/Vol] 4.5 g/dL 3.5 - 5 g/dL [place] Comment on above: Test Performed by [facility], [address] , [place] [address] ALP [Catalytic activity/Vol] 67 U/L 38 - 126 U/L [place] Comment on above: Test Performed by [facility], [address] , [place] [address] ALT [Catalytic activity/Vol] 35 U/L 0 - 49 U/L [place] Comment on above: Test Performed by [facility], [address] , [place] [address] The ALT test is performed by an updated assay method. Please note that the reference intervals have been changed and are now sex specific. Anion gap [Moles/Vol] 12 mmol/L [place] Comment on above: Test Performed by [facility], [address] , [place] [address] AST [Catalytic activity/Vol] 44 U/L 15 - 46 U/L [place] Comment on above: Test Performed by [facility], [address] , [place] [address] Bilirubin Ql (U) 0.3 mg/dL 0.2 - 1.3 mg/dL [place] Comment on above: Test Performed by [facility], [address] , [place] [address] Calcium [Mass/Vol] 9.7 mg/dL 8.4 - 10. 4 mg/dL [facility], [place] Comment on above: Test Performed by [facility], [address] , [place] [address] Chloride [Moles/Vol] 101 mmol/L 98 - 107 mmol/L [facility], [place] Comment on above: Test Performed by [facility], [address] , [place] [address] CO2 [Moles/Vol] 26 mmol/L 22 - 30 mmol/L [facility] Comment on above: Test Performed by [facility], [address] , [place] [address] Creatinine [Mass/Vol] 1.02 mg/dL 0.52 - 1.25 mg/dL [facility], [place] Comment on above: Test Performed by [facility], [address] , [place] [address] EGFR IF NonAfrican Armenian >60.0 >60 mL/min [place], [place] Comment on above: Test Performed by [facility], [address] , [place] [address] Source- MDRD equation with creatinine calibration to IDMS(NKDEP) eGFR not recommended for drug dose adjustment GFR/1.73 sq M predicted among blacks MDRD (S/P/Bld) [Vol rate/Area] mL/min/{1.73_m2} >60 mL/min [facility], [place] Comment on above: Test Performed by [facility], [address] , [place] [address] Glucose [Mass/Vol] 98 mg/dL 70 - 100 mg/dL [facility], [place] Comment on above: Test Performed by [facility], [address] , [place] [address] Potassium [Moles/Vol] 4.2 mmol/L 3.5 - 5.1 mmol/L [facility], [place] Comment on above: Test Performed by [facility], [address] , [place] [address] Protein [Mass/Vol] 7.3 g/dL 6.3 - 8.2 g/dL [place] Comment on above: Test Performed by [facility], [address] , [place] [address] Sodium [Moles/Vol] 139 mmol/L 135 - 145 mmol/L [place] Urea nitrogen [Mass/Vol] 16 mg/dL 7 - 20 mg/dL [place] Comment on above: Test Performed by [facility], [address] , [place] [address] Lipaseon 08-11-2019 Lipase [Catalytic activity/Vol] 278 U/L 23 - 300 U/L [place] Otheron 08-11-2019 Test Performed by [facility], [address] , [address] Amylaseon 03-27-2019 Amylase [Catalytic activity/Vol] 143 U/L High 30 - 130 U/L [place] Interpretation and review of laboratory results Abnormal [place] Lipaseon 03-27-2019 Lipase [Catalytic activity/Vol] 272 U/L 23 - 300 U/L [place] Otheron 03-27-2019 Test Performed by [facility], [address] , [address] Amylaseon 01-27-2019 Amylase [Catalytic activity/Vol] 146 U/L High 30 - 130 U/L [place] Interpretation and review of laboratory results Abnormal [place] Lipaseon 01-27-2019 Lipase [Catalytic activity/Vol] 298 U/L 23 - 300 U/L [place] Otheron 01-27-2019 Test Performed by [facility], [address] , [address] Amylaseon 01-06-2019 Amylase [Catalytic activity/Vol] 195 U/L High 30 - 130 U/L [place] CBC Auto Differentialon 12-10 Absolute Baso # 0.1 10*3/uL 0 - 0.2 10*3/uL [place] Absolute Neut # 4.0 10*3/uL 1.8 - 7 10*3/uL [place] Basophils/100 WBC (Bld) 0.8 % 0 - 2 % [place] Eosinophils (Bld) [#/Vol] 0.3 10*3/uL 0 - 0.5 10*3/uL [place] Eosinophils/100 WBC (Bld) 4.4 % 1 - 6 % [place] Erythrocyte distribution width (RBC) [Ratio] 14.4 % 11.5 - 14.5 % [place] Granulocytes/100 WBC (Bld) 59.9 % 40 - 80 % [place] Hematocrit (Bld) [Volume fraction] 35.6 % Low 40 - 52 % [place] Hemoglobin (Bld) [Mass/Vol] 11.9 g/dL Low 13 - 18 g/dL [place] Interpretation and review of laboratory results Abnormal [place] Lymphocytes (Bld) [#/Vol] 1.7 10*3/uL 1 - 4.3 10*3/uL [place] Lymphocytes/100 WBC (Bld) 25.7 % 20 - 40 % [place] MCH (RBC) [Entitic mass] 28.5 pg 26 - 34 pg [place] MCHC (RBC) [Mass/Vol] 33.4 % 32 - 36 % [place] MCV (RBC) [Entitic vol] 85.4 fL 80 - 98 fL [place] Monocytes (Bld) [#/Vol] 0.6 10*3/uL 0 - 0.8 10*3/uL [place] Monocytes/100 WBC (Bld) 9.2 % 2 - 10 % [place] Platelet mean volume (Bld) [Entitic vol] 7.9 fL 7.4 - 10.4 fL [place] Platelets (Bld) [#/Vol] 228 10*3/uL 140 - 440 10*3/uL [place] RBC (Bld) [#/Vol] 4.17 10*6/uL Low 4.4 - 5.9 10*6/uL [place] WBC (Bld) [#/Vol] 6.7 10*3/uL 3.6 - 10.7 10*3/uL [place] Test Performed by [facility], [address] , [place], [place] [address] [place] Comprehensive Metabolic Pane magi 01-06-2019 Albumin [Mass/Vol] 4.3 g/dL 3.5 - 5 g/dL [place] ALP [Catalytic activity/Vol] 64 U/L 38 - 126 U/L [place] ALT [Catalytic activity/Vol] 40 U/L 13 - 69 U/L [place] Anion gap [Moles/Vol] 14 mmol/L [place] AST [Catalytic activity/Vol] 37 U/L 15 - 46 U/L [place] Bilirubin Ql (U) 0.3 mg/dL 0.2 - 1.3 mg/dL [place] Calcium [Mass/Vol] 9.5 mg/dL 8.4 - 10. 4 mg/dL [place] Chloride [Moles/Vol] 101 mmol/L 98 - 107 mmol/L [place] CO2 [Moles/Vol] 25 mmol/L 22 - 30 mmol/L [place] Creatinine [Mass/Vol] 1.06 mg/dL 0.52 - 1.25 mg/dL [place] EGFR IF NonAfrican [place] >60.0 >60 mL/min [place] Comment on above: Source- MDRD equatio n with creatinine calibration to IDMS(NKDEP) eGFR not recommended for drug dose adjustment GFR/1.73 sq M predicted among blacks MDRD (S/P/Bld) [Vol rate/Area] mL/min/{1.73_m2} >60 mL/min [place] Glucose [Mass/Vol] 182 mg/dL High 70 - 100 mg/dL [place] Potassium [Moles/Vol] 3.8 mmol/L 3.5 - 5.1 mmol/L [place] Protein [Mass/Vol] 7.3 g/dL 6.3 - 8.2 g/dL [place] Sodium [Moles/Vol] 140 mmol/L 135 - 145 mmol/L [place] Urea nitrogen [Mass/Vol] 27 mg/dL High 7 - 20 mg/dL [facility] Lipaseon 01-06-2019 Lipase [Catalytic activity/Vol] 441 U/L High 23 - 300 U/L [facility] Otheron 01-06-2019 Interpretation and review of laboratory results Abnormal [place] Test Performed by [facility], [address] , [place], [place] [id number] [place] [address] Provider Letter - Ambulatory on 12-20-2018 Provider Letter - Ambulatory Ronan Del Castillo MD [address] [place] [address] RE: RAMSEY CHANCE - 1955 Dear Ronan Del Castillo MD Enclosed is a Transition of Care Document. This document is confidential and intended solely for the use of the individual or entity to which they are addressed. If you are not the named addressee, please disregard and do not disseminate, distribute or copy this information. If you are not the intended recipient you are notified that any disclosure of this information and its contents are strictly prohibited. If you have any questions about this document, please contact: Sincerely, [facility] The following document(s) were included in the letter: December 06, 2018 10:48:00 EDT - (12/06/2018) GI EUS with Anesthesia Normal [facility] Phone Msgon 12-08-2018 Phone Msg - From: JOSE DANIEL LINDO CNP Sent: 12/08/2018 10:46:19 EDT Called pt for post procedure check. LVM instructing pt to call back if they have any questions or concerns. Pt to f/u with Dr. Del Castillo. Mr. Chance called back he is doing well post procedure, has had diarrhea since april. I advised him to contact his primary GI doctor Dr. Del Castillo for follow up . [facility] SURGICAL PATH REPORTon 12-07 SURGICAL PATH REPORT [facility] Department of Pathology [address] [place] [address] Name: RAMSEY CHANCE : 1955 Financial [id number] Number: Gender: Male Location: SW ENDO Admit 63 years Attending ALEKSEY MURO MD Age: Provider: Ordering ALEKSEY MURO MD Provider: Consulting: Surgical Pathology Report ACCESSION: COLLECTED DATE/TIME: RECEIVED DATE/TIME: PATHOLOGIST: [id number] 12/06/2018 10:40 EDT 12/06/2018 11:02 EDT PARAG SCOTT MD Final Diagnosis GASTRIC POLYP, SNARE: - HYPERPLASTIC GASTRIC POLYP. - IMMUNOHISTOCHEMICAL STAIN FOR H. PYLORI ORGANISMS IS NEGATIVE. PARAG SCOTT PATHOLOGIST (Electronic Signature) Date Verified 12/07/2018 CW Clinical Data PRE-OP DIAGNOSIS: Increased pancreatic enzymes POST-OP DIAGNOSIS: Minimal changes of chronic pancreatitis, gastric polyp, status post cholecystectomy PROCEDURES: EUS SPECIMEN: Gastric polyp hot snare Gross Description Labeled gastric. Received in formalin on a sponge is a single irregular najera segment of soft tissue measuring 1.5 x 1.5 x 1.5 cm, trisected longitudinally. The specimen is entirely submitted in two cassettes. MP:[place] 12/06/2018 Microscopic Diagnosis NOTE: One or more of the reagents used to perform assays on this specimen MAY have contained components considered to be analyte specific reagents (ASR's). ASR's have not been cleared or Print Date12/12/2018 14:00 EDT Number: Time: [facility] Department of Pathology [address] [place] [id number] Name: RAMSEY CHANCE : 1955 Financial [id number] Number: Gender: Male Location: SW ENDO Admit 63 years Attending ALEKSEY MURO MD Age: Provider: Ordering ALEKSEY MURO MD Provider: Consulting: Surgical Pathology Report ACCESSION: COLLECTED DATE/TIME: RECEIVED DATE/TIME: PATHOLOGIST: [id number] 12/06/2018 10:40 EDT 12/06/2018 11:02 EDT PARAG SCOTT MD Microscopic Diagnosis approved by the U.S. Food and Drug Administration. The performance characteristics of these assays have been determined by the Department of Pathology at [facility]. This assay was performed subsequent to the H&E examination. Appropriate positive and negative controls were examined with appropriate reactivity. Codes CPT CODE: 76433 [id number] Print Date12/12/2018 14:00 EDT Number: Time: [facility] Comment on above: Performed By: #### [id number] ####[facility] [id number] [place] [id number] Medical Director: Parag Scott MD Anesthesiaon 12-06-2018 Anesthesia Patient: Kelly CHANCE Age: 63 years Sex: Male : 1955 Associated Diagnoses: None Author: RADHA GONZALES MD Postoperative Information Time Seen: Date & Time 12/06/2018 11:05:00. Assessment Postanesthesia assessment Vitals: Vital Signs 12/06/2018 11:00 EDT Heart Rate Monitored 52 bpm LOW Respiratory Rate 12 br/min NORMAL Systolic Blood Pressure 126 mmHg NORMAL Diastolic Blood Pressure 68 mmHg NORMAL SpO2 95 % NORMAL Oxygen Therapy Room air . Mental status: at preoperative baseline. Respiratory function: normal oxygenation and ventilation. Respiratory support: none. Cardiovascular function: stable. Pain: controlled. Nausea status: absence of nausea and vomiting. Postoperative hydration status: euvolemia. [facility] Anesthesia Patient: Kelly CHANCE Age: 63 years Sex: Male : 1955 Associated Diagnoses: None Author: RADHA GONZALES MD DIAGNOSIS: INCREASED PANCREATIC ENZYMES Preoperative Information Procedure/ Case: EUS NPO greater than 8 hours. Anesthesia history Patient's history: negative. Review of Systems HISTORY/ROS: See [facility] Health Status Allergies: Allergies (1) Active Reaction Januvia pancreatitis Current medications: Home Medications (15) Active allopurinol 100 mg oral tablet 100 mg = 1 tabs, ORAL, DAILY amLODIPine 5 mg oral tablet 5 mg = 1 tabs, ORAL, DAILY ascorbic acid 250 mg oral tablet 250 mg = 1 tabs, ORAL, DAILY cloNIDine 0.1 mg oral tablet 0.1 mg = 1 tabs, ORAL, BID ferrous sulfate 325 mg (65 mg elemental iron) oral delayed release tablet 325 mg = 1 tabs, ORAL, DAILY losartan 100 mg oral tablet 100 mg = 1 tabs, ORAL, DAILY lovastatin 40 mg oral tablet 40 mg = 1 tabs, ORAL, DAILY metFORMIN 1000 mg oral tablet 1,000 mg = 1 tabs, ORAL, BID metoprolol tartrate 100 mg oral tablet 100 mg = 1 tabs, ORAL, BID pantoprazole 40 mg oral delayed release tablet 40 mg = 1 tabs, ORAL, DAILY pioglitazone 45 mg oral tablet 45 mg = 1 tabs, ORAL, DAILY promethazine 12.5 mg oral tablet 12.5 mg = 1 tab(s), PRN, ORAL, [id number] sucralfate 1 g, ORAL sucralfate 1 g oral tablet 1 g = 1 tabs, ORAL, BID venlafaxine 37.5 mg oral tablet, extended release 37.5 mg = 1 tabs, ORAL, DAILY Histories Past Medical History: HTN NIDDM GERD ROMULO ON CPAP Procedure history: GB ROT CUFF ORIF FEMUR, HARDWARE REMOVED Physical Examination VITALS Vital Signs (last value in last 48 hours) Temperature Temporal Artery: 36.4 degC (12/06/18 08:48:00) Respiratory Rate: 15 br/min (12/06/18 08:48:00) Heart Rate Monitored: 61 bpm (12/06/18 08:48:00) Systolic Blood Pressure: 143 mmHg High (12/06/18 08:48:00) Diastolic Blood Pressure: 72 mmHg (12/06/18 08:48:00) SpO2: 96 % (12/06/18 08:48:00)Height and Weight (last value in last 48 hours) Height/Length Dosin.8 cm (12/06/18 08:48:00) Weight Dosin.55 kg (12/06/18 08:48:00) General: Alert and oriented. Airway: Mallampati classification: IV (hard palate only). Assessment and Plan [place] [employer] Anesthesiologists (ASA) physical status classification: Class III. Anesthetic Preoperative Plan Anesthetic technique: General anesthesia. Special monitoring: Standard ASA monitors.. Risks discussed. Informed consent: signed by patient. Notes: Betablocker: REQUIRED. [facility] OR Nursing Record - Endoon 0 12-06-2018 OR Nursing Record - Endo OR Nursing Record - Endo Summary Primary Physician: ALEKSEY MURO MD Finalized Date/Time: 12/06/18 10:45:54 Pt. Name: ROBSONRAMSEY/Sex: 1955 Male Med Rec #: [id number] Physician: Financial #: [id number] Pt. Type: A Room/Bed: / Admit/Disch: 12/06/18 07:35:49 - Institution: Case Times - Endo Entry 1 Patient In Room Time 12/06/18 09:59:00 Out Room Time 12/06/18 10:52:00 Anesthesia Facility Times Induction Time 12/06/18 09:59:00 Stop Time 12/06/18 10:44:00 [place] Protocol Yes Completed Surgery Start Time 12/06/18 10:06:00 Stop Time 12/06/18 10:44:00 Last Modified By: Aleyda Zavaleta RN 12/06/18 10:44:54 Surgical Procedures - Endo Entry 1 Procedure Endoscopic Ultrasound - Modifiers None EUS Surgeon Procedure EUS Primary Procedure Yes Description Primary Surgeon ALEKSEY MURO MD Start 12/06/18 10:06:00 Stop 12/06/18 10:44:00 Anesthesia Type MAC Surgical Service SN - Gastroenterology Last Modified By: Waqar MARES, Aleyda 12/06/18 10:44:55 General Case Data - Endo Entry 1 Case Information OR Endo 05 Schedule Type Scheduled Case Level Endo 03 Wound Class Choose One Specialty SN - Gastroenterology ASA Class 3 Procedure History Yes Documented Diagnosis Preop Diagnosis INCREASED PANCREATIC Postop Diagnosis MINIMAL CHANGES OF ENZYMES CHRONIC PANCREATITIS, GASTRIC POLYP, POST STATUS CHOLECYSTECOMY Last Modified By: Waqar MARES, Aleyda 12/06/18 10:45:44 Case Attendance - Endo Entry 1 Entry 2 Entry 3 Case Attendee BHASKAR GUTIERREZ, ALEKSEY Zavaleta RN, Aleyda Montgomery RN, Aleyda Lee Role Performed Surgeon Primary Plugger Primary Scrub Relief Time In 12/06/18 09:59:00 12/06/18 09:59:00 12/06/18 09:59:00 Time Out 12/06/18 10:52:00 12/06/18 10:52:00 12/06/18 10:52:00 Procedure Endoscopic Ultrasound - Endoscopic Ultrasound - Endoscopic Ultrasound - EUS(None) EUS(None) EUS(None) Last Modified By: Waqar MARES, Aleyda Zavaleta RN, Aleyda Zavaleta RN, Aleyda 12/06/18 10:45:46 12/06/18 10:45:46 12/06/18 10:45:46 Entry 4 Entry 5 Entry 6 Case Attendee MARY LOU HUBBARD, STEPHANIA GONZALES MD, Latonya Calloway RN Role Performed Anesthesia Asst/CRACK OFF PERSON Anesthesiologist Primary Plugger Relief Time In 12/06/18 09:59:00 12/06/18 09:59:00 12/06/18 09:59:00 Time Out 12/06/18 10:52:00 12/06/18 10:52:00 12/06/18 10:52:00 Procedure Endoscopic Ultrasound - Endoscopic Ultrasound - Endoscopic Ultrasound - EUS(None) EUS(None) EUS(None) Last Modified By: Waqar RN, Aleyda Zavaleta RN, Aleyda Zavaleta RN, Aleyda 12/06/18 10:45:46 12/06/18 10:45:46 12/06/18 10:45:46 Delays - Endo Entry 1 Delay Reason No Delay Last Modified By: Aleyda Zavaleta RN 12/06/18 10:01:16 Vital Signs to IView - Endo NOT APPLICABLE Entry 1 Last Modified By: Cautery - Endo Entry 1 ESU Type Erbe Grounding Pad Yes Needed? Grounding Pad Site Right Flank Grounding Pad Site Yes Dry /Intact Pre-Op? Grounding Pad Site Yes Dry / Intact PostOp? Last Modified By: Aleyda Zavaleta RN 12/06/18 10:17:23 Endoscopy - Endo Entry 1 Scope Serial Number [id number] Last Modified By: Aleyda Zavaleta RN 12/06/18 10:15:41 Medication Administration - Endo NOT APPLICABLE Entry 1 Last Modified By: X-Ray and Images NOT APPLICABLE Entry 1 Last Modified By: Blood Products - Endo NOT APPLICABLE Entry 1 Last Modified By: Implants/Tissue Products - Endo NOT APPLICABLE Entry 1 Last Modified By: Endo Specimens/Cultures Entry 1 Specimens Taken Routine Specimen Comment 1. GASTRIC POLYP HOT SNARE Last Modified By: Aleyda Zavaleta RN 12/06/18 10:44:46 Case Comments Finalized By: Aleyda Zavaleta RN Document Signatures Signed By: Aleyda Zavaleta RN 12/06/18 10:45 Aleyda Zavaleta RN 12/06/18 10:45 Normal [facility] Operative Reporton Operative Report Patient: Kelly CHANCE Age: 63 years Sex: Male : 1955 Associated Diagnoses: None Author: ALEKSEY MURO MD See today's Sedation Record for sedation start and end time, nurse and monitoring information. Pre-Procedure Procedure Date: 12/06/2018 . Procedure Type: Esophagogastroduodenoscopy with endoScopic mucosal resection. EUS. Procedure provider: Performed by ALEKSEY MURO MD. Indication: Patient with episode of acute pancreatitis to evaluate for etiology. . ASA Classification: Class II. Monitoring: See anesthesia record. Procedure The procedure was performed in an endoscopy suite in the hospital. See anesthesia record for sedation given during procedure. The patient was positioned starting in the left lateral decubitus position. Endoscope type used was gastroscope, Linear echoendoscope, introduced orally, advanced to duodenum. Views were excellent. The patient tolerated the procedure well. Findings Linear echoendoscope advance to second portion of the duodenum Pancreas examined from stomach duodenal bulb and second portion of the duodenum Pancreatic parenchyma shows few hyperechoic foci and strands Pancreatic duct is of normal course and caliber. It was ectatic. Duct margins were hyperechoic No focal mass lesion identified within the pancreas Common bile duct measured 5 mm no ductal filling defect. Patient is status post cholecystectomy Portal vein splenic vein superior mesenteric vein at the level of the confluence appeared normal Celiac artery at origin appeared normal No abnormal lymphadenopathy was appreciated Left lobe of the liver appeared normal Endoscopy exam showed multiple large polyps in the stomach. The largest one measured about 3 cm was seen in the antrum. It was lifted by injecting orise. It was removed piecemeal using hot snare polypectomy technique. The defect was closed by applying 5 hemoclips Examination of the duodenum was normal Images Procedure images: Other_0015.jpg Other_0016.jpg Other_0014.jpg Other_0013.jpg Other_0011.jpg Other_0012.jpg Other_0010.jpg Other_0009.jpg Other_0008.jpg Other_0007.jpg Other_0006.jpg Other_0005.jpg Other_0003.jpg Other_0004.jpg Other_0001.jpg Other_0002.jpg . Post-Procedure Complications encountered during the procedure were none. Estimated blood loss during the procedure was none. Specimens were sent to pathology. Impression and Plan EGD: Pre Procedure Diagnosis: Same as pre op indication/diagnosis. Post Procedure Diagnosis: Gastric polyp largest one resected 4 endoscopic ultrasound changes of chronic pancreatitis. Course: Progressing as expected. Orders: Orders Patient Care: Ambulate (Order): 12/06/2018 10:52 EDT, with assistance, Constant Order Discharge Patient per Attending Physician (Order): 12/06/2018 10:52 EDT, Constant Order, Without Analytical Manager Approval Post Procedure Location of Care (Order): 12/06/2018 10:52 EDT, PACU Nutrition Services/Dietary: Diet Order (Order): 12/06/2018 10:52 EDT, Clear Liquids. Education and Follow-up: Patient Instructions: ALEKSEY MURO, Gastroenterology Within Call for Appointment. Notes: Follow-up with pathology in clinic in 2 weeks Follow-up with Dr. Del Castillo. Normal [facility] Comment on above: Order Comment: Nancy ng Attachment [id number] can be viewed in source system Missing Attachment [id number] can be viewed in source system Missing Attachment [id number] can be viewed in source system Missing Attachment [id number] can be viewed in source system Missing Attachment [id number] can be viewed in source system Missing Attachment [id number] can be viewed in source system Missing Attachment [id number] can be viewed in source system Missing Attachment [id number] can be viewed in source system Missing Attachment [id number] can be viewed in source system Missing Attachment [id number] can be viewed in source system Missing Attachment [id number] can be viewed in source system Missing Attachment [id number] can be viewed in source system Missing Attachment [id number] can be viewed in source system Missing Attachment [id number] can be viewed in source system Missing Attachment [id number] can be viewed in source system Missing Attachment [id number] can be viewed in source system Result Comment: PACU Phase I - Endoon 2018 PACU Phase I - Endo PACU Phase I - Endo Summary Primary Physician: ALEKSEY MURO MD Finalized Date/Time: 12/06/18 11:17:09 Pt. Name: RAMSEY CHANCE/Sex: 1955 Male Med Rec #: [id number] Physician: Financial #: [id number] Pt. Type: A Room/Bed: / Admit/Disch: 12/06/18 07:35:49 - Institution: PACU I Case Times - Endo Entry 1 In PACU I 12/06/18 10:53:00 Ready for Transfer 12/06/18 11:20:00 Actual Time of n/a Transfer Last Modified By: Chelsea Rodriguez RN 12/06/18 11:17:07 Finalized By: Chelsea Rodriguez RN Document Signatures Signed By: Chelsea Rodriguez RN 12/06/18 11:17 Normal [facility] POC Glucoseon 12-06-2018 Glucose [Mass/Vol] 139 mg/dL High 72-100 [facility] Comment on above: Performed By: #### 1 [id number] #### [facility] [address] [place] [address] Healthcare Administrator: Parag Scott MD Preop - Endoon 12-06-2018 Preop - Endo Preop - Endo Summary Primary Physician: ALEKSEY MURO MD Finalized Date/Time: 12/06/18 09:08:39 Pt. Name: RAMSEY CHANCE /Sex: 1955 Male Med Rec #: [id number] Physician: Financial #: [id number] Pt. Type: A Room/Bed: / Admit/Disch: 12/06/18 07:35:49 - Institution: Preop - Case Times - Endo Entry 1 Patient Arrival Time 12/06/18 08:30:00 Patient Ready for 12/06/18 09:03:00 Surgery Last Modified By: Verito Romano RN 12/06/18 09:03:20 Finalized By: Verito Romano RN Document Signatures Signed By: Verito Romano RN 12/06/18 09:03 Verito Romano RN 12/06/18 09:08 Verito Romano RN 12/06/18 09:08 Normal [facility] History and Physicalon 11-30 History and Physical Patient: RAMSEY CHANCE Age: 63 years Sex: Male : 1955 Associated Diagnoses: None Author: LOLITA MAZARIEGOS CNP Basic Information Source of history: Self. Chief Complaint Elevated pancreatic enzymes History of Present Illness This pleasant 63-year-old male reports having a cholecystectomy in April 2018. He states all his symptoms resolved for 1 month. He slowly began to redevelop nausea and vomiting with occasional diarrhea. He saw his PCP and blood work was done which revealed elevated pancreatic enzymes. He was referred to Dr. Schofield. He states since he was started on sucralfate his nausea has subsided. He denies any unintentional weight loss. Dr. Aleksey Muro is recommending an endoscopic ultrasound. The patient is agreeable. The patient denies any anesthesia problems. Histories Past Medical History: 1. Hypertension 2. Hyperlipidemia 3. Obstructive sleep apnea 4. Acid reflux 5. Type 2 diabetes mellitus, [id number]-fpkrqphve 6. History of anemia 7. History of kidney stones Family History: Father: () Age at unknown. Heart attack.. Mother: () Age at unknown. Chronic kidney disease Procedure history: Cholecystectomy. Rotator cuff repair. Femur ORIF. Hardware removed from femur. Social History Social & Psychosocial Habits Alcohol 11/28/2018 Use: Current Type: Liquor Frequency: 1-2 times per week Home/Environment 11/28/2018 Lives with: Spouse *Living Situation Prior to Admission Home/Independent Home equipment: None Monitoring Equipment in home None *Special Services and Community Resources Prior to Admission None *Mobility Assistance Prior to Admission Independent Home Barriers None *Will patient require additional/new services upon discharge No Substance Abuse 11/28/2018 Risk Assessment: Denies Substance Abuse Tobacco 11/28/2018 Use: Former smoker, quit more Type: Cigarettes Comment: Quit at age 43. - 11/28/2018 10:46 - Thomas MARES, Mesfin Arechiga . Patient is with 3 children. He is retired. Health Status Include (Selected) Allergic Reactions (All) Severity Not Documented Januvia- Pancreatitis.. Current medications: Home Meds (ST) Home Medications (16) Active allopurinol 100 mg oral tablet 100 mg = 1 tabs, ORAL, DAILY amLODIPine 5 mg oral tablet 5 mg = 1 tabs, ORAL, DAILY ascorbic acid 250 mg oral tablet 250 mg = 1 tabs, ORAL, DAILY cloNIDine 0.1 mg oral tablet 0.1 mg = 1 tabs, ORAL, BID ferrous sulfate 325 mg (65 mg elemental iron) oral delayed release tablet 325 mg = 1 tabs, ORAL, DAILY losartan 100 mg oral tablet 100 mg = 1 tabs, ORAL, DAILY lovastatin 40 mg oral tablet 40 mg = 1 tabs, ORAL, DAILY metFORMIN 1000 mg oral tablet 1,000 mg = 1 tabs, ORAL, BID metoprolol tartrate 100 mg oral tablet 100 mg = 1 tabs, ORAL, BID pantoprazole 40 mg oral delayed release tablet 40 mg = 1 tabs, ORAL, DAILY pioglitazone 45 mg oral tablet 45 mg = 1 tabs, ORAL, DAILY promethazine 12.5 mg oral tablet 12.5 mg = 1 tab(s), PRN, ORAL, [id number] sucralfate 1 g, ORAL sucralfate 1 g oral tablet 1 g = 1 tabs, ORAL, BID venlafaxine 37.5 mg oral tablet, extended release 37.5 mg = 1 tabs, ORAL, DAILY venlafaxine 75 mg oral capsule, extended release 75 mg = 1 caps, ORAL, DAILY Review of Systems Constitutional: No fever. Eye: Patient wears glasses.. Ear/Nose/Mouth/Throat: No nasal congestion, No sore throat. Respiratory: Sleep apnea, No shortness of breath, No cough. Device use: CPAP. Cardiovascular: History of hypertension and hyperlipidemia. Patient follows Dr. Mark, No chest pain, No peripheral edema. Gastrointestinal: Heartburn, No diarrhea, No constipation, No abdominal pain. Genitourinary: No dysuria, No hematuria. Hematology/Lymphatics: Anemia, No bleeding tendency. Endocrine: No cold intolerance, No heat intolerance. Immunologic: No recurrent fevers. Musculoskeletal: No back pain, No muscle pain. Integumentary: No rash, No breakdown, No skin lesion. Neurologic: Alert and oriented X4. Psychiatric: Depression. Physical Examination VS/Measurements No qualifying data available General: Alert and oriented. Eye: Pupils are equal, round and reactive to light. HENT: Normocephalic, Normal hearing. Neck: Supple, Non-tender. Respiratory: Lungs are clear to auscultation, Respirations are non-labored, Breath sounds are equal. Cardiovascular: Normal rate, Regular rhythm, No murmur, Good pulses equal in all extremities, Normal peripheral perfusion. Gastrointestinal: Soft, Non-tender, Non-distended, Normal bowel sounds. Genitourinary: No costovertebral angle tenderness. Lymphatics: No lymphadenopathy neck, axilla, groin. Musculoskeletal: Normal range of motion, Normal strength, No tenderness, No swelling, No deformity, Normal gait. Integumentary: Warm, Dry, [place]. Neurologic: Alert, Oriented, Normal sensory, Normal motor function. Cognition and Speech: Oriented, Speech clear and coherent. Psychiatric: Cooperative, Appropriate mood & affect. Impression and Plan Diagnosis 1. Increased pancreatic enzymes 2. Hypertensioncontrolled 3. Obstructive sleep apneaon CPAP 4. Type 2 diabetes mellitus, eni-sbhdcxq-fsarrpcvdhsdw hemoglobin A1c 7.1 5. Preop exam. Plan Pre-op diagnosis increased pancreatic enzymes Scheduled for surgery with Dr. Aleksey Muro on 12/06/2018 for an endoscopic ultrasound. BMI 38 This note was completed with voice recognition technology. Verbal misinterpretations may occur. Electronically Co-Signed by: LOLITA MAZARIEGOS CNP on 11/30/2018 15:10 EDT [facility] Preadmission Testing Lyric s Noteon 11-28-2018 Preadmission Testing Progress Note Medication list faxed to pharmacy. [facility] Preadmission Testing Progress Note PAT INSTRUCTION SHEET [ x ] Read and complete your Discharge Planning Checklist [ x ] Bring your Surgery Guide with you on the day of surgery [ x ] Take highlighted medications on the morning of surgery [ x ] Stop all vitamins, herbal supplements, and aspirin based products 7 days prior to surgery [ x ] Bring C-PAP on day of surgery [facility] CR Pelvis 1 or 2 Viewson CR Pelvis 1 or 2 Views Patient Name: RAMSEY CHANCE Diagnostic Radiology Exam Date/Time 12/23/2016 18:54:00 EDT Exam CR Pelvis 1 or 2 Views Ordering Physician MD SANTIAGO, GREG Boudreaux Accession Number [id number] CPT4 Codes 27855 () Reason For Exam trauma Report EXAMINATION: AP Pelvis. COMPARISON: None. REASON FOR STUDY: Trauma. FINDINGS: The bony pelvis as well as the SI and hip joints appear symmetrical. No fracture line, abnormal sclerosis or bone erosion is detected. Alignment is anatomic. Well-corticated ossification centers are observed cephalad to the right greater trochanter. CONCLUSIONS: No evidence of acute bone injury or malalignment. Report Dictated on Final Dictated: 12/23/2016 7:37 pm Dictating Physician: MD KELLEY B NELSON Signed Date and Time: 12/23/2016 7:44 pm Signed by: MD KELLEY B NELSON Transcribed Date and Time: 12/23/2016 7:37 Normal [facility] CR Spine Lumbosacral 4+ View son 12-23-2016 CR Spine Lumbosacral 4+ Views Patient Name: RAMSEY CHANCE Diagnostic Radiology Exam Date/Time 12/23/2016 18:54:00 EDT Exam CR Spine Lumbosacral 4+ Views Ordering Physician MD HENDERSON DAVID L Accession Number [id number] CPT4 Codes 46977 () Reason For Exam trauma Report EXAMINATION: L-spine: AP, Lateral and Obliques. COMPARISON: None. REASON FOR STUDY: Trauma. FINDINGS: No vertebral compression or fracture line is detected. Endplate osteophytes are present diffusely. The pedicles appear symmetrical and within normal limits. Oblique views show no bone defect. There is trace right convex curvature. Disc spaces appear normal. CONCLUSIONS: 1. No evidence of acute bone injury. 2. Mild dextroscoliosis and multilevel spondylosis. Report Dictated on Final Dictated: 12/23/2016 7:35 pm Dictating Physician: MD KELLEY B NELSON Signed Date and Time: 12/23/2016 7:37 pm Signed by: MD KELLEY B NELSON Transcribed Date and Time: 12/23/2016 7:35 Normal [facility] Vital Signs Date Time Vital Sign Value Performing Clinician Faci lity 01-24-2025 10:530400 Body height 177.8 cm Leatha Tan CNP Work Phone: [facility] [employer] 01-24-2025 [id number] Body mass index (BMI) [Ratio] 35.21 kg/m2 Leatha Tan CNP Work Phone: [facility] 01-24-2025 10:53-0400 Body weight 111.31 kg Leatha Lin SHIPPING/RECEIVING CLERK - CONTENT DEVELOPMENT MANAGER Work Phone: [facility] [employer] 01-24-2025 10:53-0400 Diastolic blood pressure 78 mm[Hg] Leatha Lin SHIPPING/RECEIVING CLERK - CONTENT DEVELOPMENT MANAGER Work Phone: [facility] [employer] 01-24-2025 10:53-0400 Heart rate 51 /min Leatha Lin SHIPPING/RECEIVING CLERK - CONTENT DEVELOPMENT MANAGER Work Phone: [facility] [employer] 01-24-2025 10:53-0400 Systolic blood pressure 131 mm[Hg] Leatha Lin SHIPPING/RECEIVING CLERK - CONTENT DEVELOPMENT MANAGER Work Phone: [facility] [employer] 02-01-2024 14:58-0400 Diastolic blood pressure 60 mm[Hg] Feng Hagan MD Work Phone: [facility] [employer] 02-01-2024 14:58-0400 Heart rate 54 /min Feng Hagan MD Work Phone: [facility] [employer] 02-01-2024 14:58-0400 Respiratory rate 16 /min Feng Hagan MD Work Phone: [facility] [employer] 02-01-2024 14:58-0400 SaO2% (BldA) [Mass fraction] 100 % Feng Hagan MD Work Phone: [facility] [employer] 02-01-2024 14:58-0400 Systolic blood pressure 128 mm[Hg] Feng Hagan MD Work Phone: [facility] [employer] 02-01-2024 12:27-0400 Body height 177.8 cm Feng Hagan MD Work Phone: [facility] [employer] 02-01-2024 12:27-0400 Body mass index (BMI) [Ratio] 34.44 kg/m2 Feng Hagan MD Work Phone: [facility] [employer] 02-01-2024 12:27-0400 Body weight 108.86 kg Feng Hagan MD Work Phone: [facility] [employer] 02-01-2024 12:26-0400 Body temperature 97.7 [degF] Feng Hagan MD Work Phone: [facility] 12-02-2023 10:40-0400 Body height 180.3 cm Stephania Fortune MD Work Phone: [facility] 12-02-2023 10:40-0400 Body mass index (BMI) [Ratio] 33.61 kg/m2 Stephania Fortune MD Work Phone: [facility] 12-02-2023 10:40-0400 Body weight 109.32 kg Stephania Fortune MD Work Phone: [facility] 12-02-2023 10:40-0400 Diastolic blood pressure 79 mm[Hg] Stephania Fortune MD Work Phone: [facility] 12-02-2023 10:40-0400 Heart rate 64 /min Stephania Fortune MD Work Phone: [facility] 12-02-2023 10:40-0400 Systolic blood pressure 138 mm[Hg] Stephania Fortune MD Work Phone: [facility] 09-01-2022 16:03-0400 Body height 180.34 cm CANE STRIPPER-C Edgar Bello CANE STRIPPER Work Phone: [facility] 09-01-2022 16:03-0400 Body mass index (BMI) [Ratio] 36.1 kg/m2 CANE STRIPPER-C Edgar Bello CANE STRIPPER Work Phone: [facility] 09-01-2022 16:03-0400 Body temperature 98.1 [degF] CANE STRIPPER-C Edgar Bello CANE STRIPPER Work Phone: [facility] 09-01-2022 16:03-0400 Body weight 117.48 kg CANE STRIPPER-C Edgar Bello CANE STRIPPER Work Phone: [facility] 09-01-2022 16:03-0400 Diastolic blood pressure 80 mm[Hg] CANE STRIPPER-C Edgar Bello CANE STRIPPER Work Phone: [facility] 09-01-2022 16:03-0400 Heart rate 57 /min CANE STRIPPER-C Edgar Bello CANE STRIPPER Work Phone: [facility] 09-01-2022 16:03-0400 Respiratory rate 18 /min CANE STRIPPER-C Edgar Bello CANE STRIPPER Work Phone: [facility] 09-01-2022 16:03-0400 SaO2% (BldA) [Mass fraction] 98 % CANE STRIPPER-C Edgar Sullivanson CANE STRIPPER Work Phone: [facility] 09-01-2022 16:03-0400 Systolic blood pressure 122 mm[Hg] CANE STRIPPER-C Edgar Sullivanson CANE STRIPPER Work Phone: [facility] 08-25-2022 15:34-0400 Body mass index (BMI) [Ratio] 36.9 kg/m2 CANE STRIPPER-C Edgar Bello CANE STRIPPER Work Phone: [facility] 08-25-2022 15:34-0400 Body temperature 97.5 [degF] CANE STRIPPER-C Edgar Bello CANE STRIPPER Work Phone: [facility] 08-25-2022 15:34-0400 Body weight 120.2 kg CANE STRIPPER-C Edgar Bello CANE STRIPPER Work Phone: [facility] 08-25-2022 15:34-0400 Diastolic blood pressure 60 mm[Hg] CANE STRIPPER-C Edgar Sullivanson CANE STRIPPER Work Phone: [facility] 08-25-2022 15:34-0400 Heart rate 58 /min CANE STRIPPER-C Edgar Sullivanson CANE STRIPPER Work Phone: [facility] 08-25-2022 15:34-0400 Respiratory rate 18 /min CANE STRIPPER-C Edgarrosa SullivanBello CANE STRIPPER Work Phone: [facility] 08-25-2022 15:34-0400 SaO2% (BldA) [Mass fraction] 97 % CANE STRIPPER-C Edgar Sullivanson CANE STRIPPER Work Phone: [facility] 08-25-2022 15:34-0400 Systolic blood pressure 118 mm[Hg] CANE STRIPPER-C Edgar Sullivanson CANE STRIPPER Work Phone: [facility] 08-21-2022 10:35-0400 Body mass index (BMI) [Ratio] 36.4 kg/m2 CANE STRIPPER-C Edgar Bello CANE STRIPPER Work Phone: [facility] 08-21-2022 10:35-0400 Body weight 118.5 kg CANE STRIPPER-C Edgar Ace CANE STRIPPER Work Phone: [facility] 08-20-2022 15:11-0400 Body mass index (BMI) [Ratio] 36.5 kg/m2 CANE STRIPPER-C Edgar Sullivanson CANE STRIPPER Work Phone: [facility] 08-20-2022 15:11-0400 Body temperature 98.6 [degF] CANE STRIPPER-C Edgar Bello CANE STRIPPER Work Phone: [facility] 08-20-2022 15:11-0400 Body weight 118.84 kg CANE STRIPPER-C Edgar Bello CANE STRIPPER Work Phone: [facility] 08-20-2022 15:11-0400 Diastolic blood pressure 70 mm[Hg] CANE STRIPPER-C Edgar Bello CANE STRIPPER Work Phone: [facility] 08-20-2022 15:11-0400 Heart rate 60 /min CANE STRIPPER-C Edgar Bello CANE STRIPPER Work Phone: [facility] 08-20-2022 15:11-0400 Respiratory rate 18 /min CANE STRIPPER-C Edgar Bello CANE STRIPPER Work Phone: [facility] 08-20-2022 15:11-0400 SaO2% (BldA) [Mass fraction] 94 % CANE STRIPPER-C Edgar Bello CANE STRIPPER Work Phone: [facility] 08-20-2022 15:11-0400 Systolic blood pressure 162 mm[Hg] CANE STRIPPER-C Edgar Sullivanson CANE STRIPPER Work Phone: [facility] 06-03-2022 15:03-0500 Body mass index (BMI) [Ratio] 35.9 kg/m2 CANE STRIPPER-C Edgar Sullivanson CANE STRIPPER Work Phone: [facility] 06-03-2022 15:03-0500 Body temperature 98.6 [degF] CANE STRIPPER-C Edgar Bello CANE STRIPPER Work Phone: [facility] 06-03-2022 15:03-0500 Body weight 117.02 kg CANE STRIPPER-C Edgar Bello CANE STRIPPER Work Phone: [facility] 06-03-2022 15:03-0500 Diastolic blood pressure 80 mm[Hg] CANE STRIPPER-C Edgar Bello CANE STRIPPER Work Phone: [facility] 06-03-2022 15:03-0500 Heart rate 63 /min CANE STRIPPER-C Edgar Bello CANE STRIPPER Work Phone: [facility] 06-03-2022 15:03-0500 Respiratory rate 18 /min CANE STRIPPER-C Edgar Bello CANE STRIPPER Work Phone: [facility] 06-03-2022 15:03-0500 SaO2% (BldA) [Mass fraction] 93 % CANE STRIPPER-C Edgar Bello CANE STRIPPER Work Phone: [facility] 06-03-2022 15:03-0500 Systolic blood pressure 120 mm[Hg] CANE STRIPPER-C Edgar Bello CANE STRIPPER Work Phone: [facility] Encounters Encounter Date Encounter Type Care Provider Facility Start: 02-20-2025 ambulatory DMITRIY [facility] Facility :[facility] Start: 01-24-2025 End: 01-24-2025 Office outpatient visit 15 minutes Leatha Lin SHIPPING/RECEIVING CLERK - CONTENT DEVELOPMENT MANAGER Work Phone: [facility] Comment on above: Obstructive sleep ap priya (Primary Dx) Start: 01-24-2025 End: 01-24-2025 ambulatory LEATHA LIN [facility] Start: 11-27-2024 End: 11-27-2024 ambulatory LAZAOR QIU Facility:[facility] Start: 11-22-2024 End: 11-22-2024 Telemedicine consultation with patient Lazaro Qiu MD Work Phone: Gastroenterology Start: 11-22-2024 End: 11-22-2024 ambulatory Lazaro Qiu MD Work Phone: Gastroenterology Comment on above: Gastric polyposis (P rimary Dx); Encounter for screening for malignant neoplasm of stomach; Type 2 diabetes mellitus without complication, without long-term current use of insulin (HCC) Start: 11-15-2024 End: 11-15-2024 Telephone encounter Lazaro Qiu MD Work Phone: Gastroenterology Comment on above: Medication Problem Start: 03-13-2024 End: 03-13-2024 Subsequent hospital visit by physician Addie Lees MD Work Phone: [facility] Comment on above: Calculus of ureter Start: 03-13-2024 End: 03-13-2024 [facility] Start: 03-06-2024 End: 06-05-2024 Transcribe Orders Addie Lees MD Work Phone: [facility] Comment on above: Calculus of ureter ( Primary Dx) Start: 02-01-2024 End: 02-01-2024 Subsequent hospital visit by physician [facility] Exam Room [address] [facility] Comment on above: Arrived Start: 02-01-2024 End: 02-01-2024 Emergency department patient visit FENG HAGAN [facility] Start: 02-01-2024 End: 02-01-2024 Emergency department patient visit Feng Hagan MD Work [facility] [facility] Comment on above: Ureteral stone with hydronephrosis (Primary Dx) Start: 12-02-2023 End: 12-02-2023 Office outpatient visit 15 minutes Stephania Fortune MD Work Phone: [facility] Comment on above: Obstructive sleep ap priya (Primary Dx) Start: 08-20-2023 ambulatory Cynthia Roper APRN.CONTENT DEVELOPMENT MANAGER Work Phone: Critical Care Start: 04-13-2023 Transcribe Orders Ronan Del Castillo MD Work Phone: 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 Laboratory Comment on above: Arrived Anemia due to blood loss (Primary Dx) Start: 09-15-2022 End: 09-15-2022 ambulatory Edgar Bello CANE STRIPPER Facility:[facility] Start: 09-01-2022 End: 09-01-2022 Patient encounter procedure CANE STRIPPER-C Edgar Bello CANE STRIPPER Work Phone: [facility], Specimen Start: 09-01-2022 End: 09-02-2022 ambulatory CANE STRIPPER-C Edgar Bello CANE STRIPPER Work Phone: [facility] Work Phone: Start: 08-21-2022 End: 08-21-2022 ambulatory Edgar Bello CANE STRIPPER Facility:[facility] Start: 08-21-2022 End: 08-21-2022 Patient encounter procedure CANE STRIPPER-C Edgar Bello CANE STRIPPER Work Phone: [facility]opa[facility] Specia Start: 04-30-2022 Transcribe Orders Ronan Del Castillo MD Work Phone: [facility] Laboratory Comment on above: Iron deficiency anem ia, unspecified (Primary Dx) Start: 07-09-2021 End: 07-09-2021 Subsequent hospital visit by physician Ronan Del Castillo Work Phone: [facility] Start: 05-14-2021 End: 05-14-2021 Subsequent hospital visit by physician Ronan Del Castillo Work Phone: [facility] Start: 08-11-2019 End: 08-11-2019 Subsequent hospital visit by physician Ronan Del Castillo Work Phone: [facility] Start: 03-27-2019 End: 03-27-2019 Subsequent hospital visit by physician Ronan Del Castillo Work Phone: [facility] Start: 01-27-2019 End: 01-27-2019 Subsequent hospital visit by physician Edgar Bello [facility] Start: 01-06-2019 End: 01-06-2019 Subsequent hospital visit by physician Edgar Bello [facility] Start: 12-23-2016 Ambulatory UNKNOWN PROVIDER [facility] Procedures Date Procedure Procedure Detail Performing Clinician Start: 11-27-2024 Antibody screen LAZARO ATT Comment on above: Order Comment: Speci men Type: BLOOD SPECIMEN Ordering Facility: [facility] Address: [address] [place] [address] Performed By: #### T SCR #### [place] [facility] [id number] [address] [place] [address] [place] Start: 03-13-2024 Us retroperitoneal r eal time w/image complete Addie Lees MD Work Phone: Start: 02-01-2024 Urinalysis complete panel - Urine Fegn Hagan MD Work Phone: Start: 02-01-2024 Urnls dip stick/tabl et reagent auto microscopy Feng Hagan MD Work Phone: Start: 02-01-2024 Ct abdomen & pelvis w/o contrast material Feng Hagan MD Work Phone: Start: 02-01-2024 Basic metabolic pane l calcium total Feng Hagan MD Work Phone: Start: 12-16-2022 Assay of ferritin Ronan Del Castillo MD Work Phone: Start: 08-21-2022 Radiologic examinati on of knee CANE STRIPPER-C Edgar Bello CANE STRIPPER Work Phone: Start: 07-09-2021 Iron binding capacity F nessa N Bashour Work Phone: Start: 05-14-2021 Iron binding capacity F nessa N Bashour Work Phone: Start: 08-11-2019 Assay of lipase Ronan N Raj Work Phone: Start: 08-11-2019 Blood count complete auto&auto difrntl wbc Ronan N Bashour Work Phone: Start: 08-11-2019 Comprehensive metabo lic panel Ronan N Bashour Work Phone: Start: 03-27-2019 Assay of amylase Ronan N Bashour Work Phone: Start: 03-27-2019 Assay of lipase Ronan N Bashour Work Phone: Start: 01-27-2019 Assay of amylase Ronan N Bashour Work Phone: Start: 01-27-2019 Assay of lipase Ronan N Bashour Work Phone: Start: 01-06-2019 Assay of amylase Ronan N Bashour Work Phone: Start: 01-06-2019 Assay of lipase Ronan N Bashour Work Phone: Start: 01-06-2019 Blood count complete auto&auto difrntl wbc Ronan N Bashour Work Phone: Start: 01-06-2019 Comprehensive metabo lic panel Ronan N Bashour Work Phone: Start: 08-02-2014 Louise Salazar ks SHIPPING/RECEIVING CLERK.CONTENT DEVELOPMENT MANAGER Work Phone: Urine culture CANE STRIPPER-C Edgar benton CANE STRIPPER Work Phone: Plan of Treatment Date Care Activity Detail Author Start: 2030 RSV Immunization for Adults (1 - 1-dose 75+ series) RSV Immunization for Adults (1 - 1-dose 75+ series) [facility] Start: 06-28-2028 DTaP/Tdap/Td vaccine (3 - Td or Tdap) DTaP/Tdap/Td vaccine (3 - Td or Tdap) [facility] Start: 06-28-2028 DTaP/Tdap/Td vaccine (3 - Td) DTaP/Tdap/Td vaccine (3 - Td) [place] Start: 06-28-2028 DTaP/Tdap/Td Vaccines (3 - Td or Tdap) DTaP/Tdap/Td Vaccines (3 - Td or Tdap) [facility] Start: 06-28-2028 Urine microalbumin profile DTaP,Tdap,Td Vaccine (3 - Td or Tdap) [facility] Start: 01-25-2026 End: 01-25-2026 Patient encounter procedure 01/25/2026 11:00 AM EDT Office Visit [facility] [address] [place] [id number] Leatha Lin, SHIPPING/RECEIVING CLERK - CONTENT DEVELOPMENT MANAGER [address] [place] [address] [facility] Start: 11-27-2025 Diabetes: Estimated Glomerular Filtration Rate for Kidney Health Diabetes: Estimated Glomerular Filtration Rate for Kidney Health [facility] Start: 07-24-2025 Depression Monitoring Depression Monitoring [facility] Start: 01-31-2025 Diabetes: Estimated Glomerular Filtration Rate for Kidney Health Diabetes: Estimated Glomerular Filtration Rate for Kidney Health [facility] Start: 01-08-2025 COVID-19 Vaccine ( season) COVID-19 Vaccine () [facility] Start: 01-08-2025 Influenza vaccination Influenza Vaccine (#1) Eldridge Minerva c Start: 11-30-2024 End: 11-30-2024 Patient encounter procedure [facility] Start: 11-27-2024 End: 11-27-2024 ambulatory 11/27/2024 4:15 PM EDT Results Only [facility] [address] [place] [address] [facility] Start: 11-22-2024 End: 02-21-2025 Basic metabolic 2000 panel - Serum or Plasma BASIC METABOLIC PANEL Lab Routine Gastric polyposis Expected: 11/22/2024, Expires: 02/21/2025 [facility] Comment on above: Expected: 11/22/2024, Expires: Start: 11-22-2024 End: 02-21-2025 CBC panel - Blood by Automated count COMPLETE BLOOD COUNT Lab Routine Gastric polyposis Expected: 11/22/2024, Expires: 02/21/2025 [facility] Comment on above: Expected: 11/22/2024, Expires: Start: 11-22-2024 End: 02-21-2025 TYPE + SCREEN TYPE + SCREEN Blood Bank Routine Gastric polyposis Expected: 11/22/2024, Expires: 02/21/2025 [facility] Work Phone: Comment on above: Expected: 11/22/2024, Expires: Start: 11-22-2024 End: 11-22-2024 ambulatory 11/22/2024 1:30 PM EDT [facility] [address] [address] Lazaro Qiu MD [address] [place] [address] EMR (Endoscopic Mucosal Resection) Gastroenterology Comment on above: EMR (Endoscopic Mucosal Resection) Start: 08-19-2024 Hemoglobin A1c measurement Diabetes: Hemoglobin A1C [facility] Start: 05-10-2024 Advance Directive Discussion Advance Directive Discussion [facility] Start: 05-10-2024 Medicare Advantage Annual Wellness Visit Medicare Advantage Annual Wellness Visit [facility] Start: 02-19-2024 Hemoglobin A1c measurement HbA1C [facility] Start: 01-09-2024 COVID-19 Vaccine ( season) COVID-19 Vaccine ( season) [facility] Start: 01-09-2024 COVID-19 Vaccine ( season) COVID-19 Vaccine ( season) [facility] Start: 01-09-2024 Influenza vaccination Influenza Vaccine (#1) [facility] Start: 12-02-2023 End: 12-02-2023 Patient encounter procedure 12/02/2023 11:00 AM EDT Office Visit [facility] [address] [place] [address] Stephania Fortune MD [address] [place], [place] [id number] [facility] Start: 11-19-2023 Lipid screen Lipid screen [facility] [place] Start: 05-10-2023 Advance Directive Discussion Advance Directive Discussion [facility] Start: 05-10-2023 Medicare Advantage Annual Wellness Visit Medicare Advantage Annual Wellness Visit [facility] Start: 04-07-2023 Pneumococcal 65+ years Vaccine (2 of 2 - PPSV23) Pneumococcal 65+ years Vaccine (2 of 2 - PPSV23) [facility] Start: 04-07-2023 Pneumococcal Vaccine: 65+ (3 of 3 - PPSV23 or PCV20) Pneumococcal Vaccine: 65+ (3 of 3 - PPSV23 or PCV20) [facility] Start: 04-07-2023 Pneumococcal Vaccine: 65+ Years (3 of 3 - PPSV23 or PCV20) Pneumococcal Vaccine: 65+ Years (3 of 3 - PPSV23 or PCV20) [facility] Start: 01-08-2023 COVID-19 Vaccine () COVID-19 Vaccine () [facility] Start: 01-08-2023 Influenza vaccination Influenza Vaccine (#1) [facility] Start: 09-28-2022 End: 09-28-2022 Patient encounter procedure 09/28/2022 Office Visit Neurology Stephania Fortune MD [address] [place] [address] [facility] Start: 08-20-2022 Patient referral [facility] Work Phone: Start: 01-08-2022 Influenza vaccination Influenza Vaccine (#1) [facility] Start: 11-26-2021 End: 11-26-2021 Patient encounter procedure 11/26/2021 Office Visit Neurology Stephania Fortune MD [address] [place] [address] [facility] [place] Start: 05-30-2021 COVID-19 Vaccine (2 - Pfizer series) COVID-19 Vaccine (2 - Pfizer series) [facility] Start: 05-29-2021 End: 05-29-2021 Patient encounter procedure 05/29/2021 Office Visit Neurology Stephania Fortune MD [address] [place] [address] [facility] [place] Start: 04-25-2021 COVID-19 Vaccine (2 - Pfizer series) COVID-19 Vaccine (2 - Pfizer series) [facility] Start: 01-08-2021 Influenza vaccination Flu vaccine (#1) [facility] Start: 12-29-2020 COVID-19 Vaccine (3 - Booster for Pfizer series) COVID-19 Vaccine (3 - Booster for Pfizer series) [facility] Start: 08-10-2020 Creatinine measurement Creatinine monitoring [facility] Start: 08-10-2020 Diabetes: Estimated Glomerular Filtration Rate for Kidney Health Diabetes: Estimated Glomerular Filtration Rate for Kidney Health [facility] Start: 08-10-2020 Potassium monitoring Potassium monitoring [facility] Start: 06-08-2020 Annual Wellness Visit (AWV) Annual Wellness Visit (AWV) [facility] Start: 2020 Abdominal aortic aneurysm screening AAA screen [facility] Start: 2020 Pneumococcal Vaccine: 65+ Years (#3) Pneumococcal Vaccine: 65+ Years (#3) [facility] Start: 2020 Pneumococcal Vaccine: 65+ Years (3 - PPSV23 if available, else PCV20) Pneumococcal Vaccine: 65+ Years (3 - PPSV23 if available, else PCV20) [facility] Start: 2020 Pneumococcal Vaccine: 65+ Years (3 - PPSV23 or PCV20) Pneumococcal Vaccine: 65+ Years (3 - PPSV23 or PCV20) [facility] Start: 01-09-2020 Influenza vaccination Flu vaccine (Season Ended) [place], [place] Start: 01-07-2020 Creatinine monitoring Creatinine monitoring [place] Start: 01-07-2020 Potassium monitoring Potassium monitoring [place], [place] Start: 11-19-2019 Hepatitis B surface antibody level LDL Cholesterol [facility] Start: 11-19-2019 Lipid panel Lipid screen [facility] Start: 11-19-2019 Lipid screen Lipid screen [place], [place] Start: 11-01-2019 Creatinine monitoring Creatinine monitoring [place] Start: 11-01-2019 Potassium monitoring Potassium monitoring [place], [place] Start: 01-08-2019 Influenza vaccination Flu vaccine (#1) [place] Start: 11-23-2018 Hemoglobin A1c measurement HbA1C [facility] Start: 10-31-2018 DTaP/Tdap/Td Vaccines (2 - Td or Tdap) DTaP/Tdap/Td Vaccines (2 - Td or Tdap) [facility] Start: 08-02-2017 Screening for malignant neoplasm of colon [facility] Start: 11-03-2015 Diabetic foot examination Diabetic Foot Exam [facility] Start: 11-01-2015 Hepatitis B screening Urine Albumin:Creatinine Ratio [facility] Start: 2015 Hepatitis B Vaccines (1 of 3 - Risk 3-dose series) Hepatitis B Vaccines (1 of 3 - Risk 3-dose series) [facility] Start: 2015 RSV Immunization aged 60 or older (1 - 1-dose 60+ series) RSV Immunization aged 60 or older (1 - 1-dose 60+ series) [facility] Start: 2015 RSV Immunization for Adults (1 - Risk 60-74 years 1-dose series) RSV Immunization for Adults (1 - Risk 60-74 years 1-dose series) [facility] Start: 2010 Prostate specific antigen measurement Prostate Cancer Screening Discussion [facility] Start: 2005 Colon cancer screen colonoscopy Colon cancer screen colonoscopy [place], [place] Start: 2005 Shingles Vaccine (1 of 2) Shingles Vaccine (1 of 2) [place] Start: 2005 Zoster Vaccines (1 of 2) Zoster Vaccines (1 of 2) [facility] Start: 2000 Screening for malignant neoplasm of colon [facility] Start: 1974 Hepatitis A Vaccines (1 of 2 - Risk 2-dose series) Hepatitis A Vaccines (1 of 2 - Risk 2-dose series) [facility] Start: 1974 Urine screening for protein Diabetes: Urine Protein Screening [facility] Start: 1973 Annual PCP Team Chronic Disease Visit Annual PCP Team Chronic Disease Visit [facility] Start: 1973 BP Controlled (<130/80) BP Controlled (<130/80) [facility] Start: 1973 Diabetes: Urine Albumin-Creatinine Ratio for Kidney Health Diabetes: Urine Albumin-Creatinine Ratio for Kidney Health [facility] Start: 1973 Hepatitis C screening Hepatitis C Screening [facility] Start: 1970 HIV screen HIV screen [place], [place] Start: 1967 Depression Monitoring Depression Monitoring [facility] Start: 1967 Depression Screen Depression Screen [facility] Start: 1967 Depression Screening Depression Screening [facility] Start: 1965 Diabetic foot examination Diabetes: Foot Exam [facility] Start: 1965 Glaucoma screening [facility] Start: 1965 Preventive dental service Diabetes: Dental Exam [facility] Start: 1956 Hepatitis A Vaccines (1 of 2 - Risk 2-dose series) Hepatitis A Vaccines (1 of 2 - Risk 2-dose series) [facility] Start: 1955 Abdominal aortic aneurysm screening Abdominal Aortic Aneurysm Screening [facility] Start: 1955 Hemoglobin A1c measurement Diabetes: Hemoglobin A1C [facility] Start: 1955 Hepatitis C screen Hepatitis C screen [place], [place] Start: 1955 Hepatitis C screening Hepatitis C screen [facility] Start: 1955 Lipid panel Lipid Panel [facility] Start: 1955 Medicare Advantage Annual Wellness Visit (AWV) Medicare Advantage Annual Wellness Visit (AWV) [facility] Start: 1955 Medicare Annual Wellness (AWV) Medicare Annual Wellness (AWV) [facility] Start: 1955 Screening for malignant neoplasm of colon [facility] Ankle brachial pressure index [facility] End: 11-22-2025 EGD - THERAPEUTIC, EUS, OR TUBE INTERVENTIONS EGD - THERAPEUTIC, EUS, OR TUBE INTERVENTIONS Endoscopy Routine Gastric polyposis 1 Occurrences starting 11/22/2024 until 11/22/2025 [facility] Comment on above: 1 Occurrences starting 11/22/2024 until 11/22/2025 OUTSIDE PROCEDURE SCAN OUTSIDE PROCEDURE SCAN Procedures Ordered: 12/16/2022 [facility] Comment on above: Ordered: 12/16/2022 [facility] Work Phone: [place] Lower extremity artery - bilateral [facility] Immunizations Immunization Date Immunization Notes Care Provider Fa [facility] 03-28-2024 influenza virus vacc ine, unspecified formulation Lazaro Qiu MD Work Phone: [facility] 02-17-2023 influenza virus vacc ine, unspecified formulation Stephania Fortune MD Work Phone: [facility] 04-04-2021 Pfizer SARS-CoV-2 Vaccination Ronan Del Castillo MD Work Phone: [facility] 04-04-2021 influenza virus vacc ine, unspecified formulation Ronan Del Castillo MD Work Phone: [facility] 11-02-2014 pneumococcal conjuga te vaccine, 13 valent Cynthia Jacquelin SHIPPING/RECEIVING CLERK.CONTENT DEVELOPMENT MANAGER Work Phone: [facility] Work Phone: 10-08-2009 pneumococcal polysaccharide vaccine, 23 valent Cynthia Jacquelin SHIPPING/RECEIVING CLERK.CONTENT DEVELOPMENT MANAGER Work Phone: [facility] 10-31-2008 tetanus toxoid, redu oren diphtheria toxoid, and acellular pertussis vaccine, adsorbed Cynthia Jacquelin SHIPPING/RECEIVING CLERK.CONTENT DEVELOPMENT MANAGER Work Phone: [facility] Payers Date Payer Category Payer Medicare (Managed Care) [facility] MEDICARE PPO [id number] 2022 Self-pay [id number] 2022 Unknown [id number] 2022 Medicare HMO [employer] AAR MEDICAR E ADVANTAGE [id number] 2022 Count Includes [facility] [id number] 2021 [employer] ( and others) FOR LIFE [id number] 2021-Present [address] [place] [address] Supplement [id number] 2021 For Life--Medicare Supplement FOR LIFE [id number] 2021 [employer] ( and others) [id number] 2020 Medicare [id number] 2013 Government (not [facility] care or Medicaid) FOR LIFE [id number] 2013 Medicare 2013 Unknown FOR LIFE [id number] 2013-Present [phone] [address] [place] [address] Indemnity [id number] 2004 [employer] ( and others) [id number] Unknown [id number] Unknown [id number] Unknown [id number] Unknown [id number] Unknown [id number] Social History Date Type Detail Facility Start: 12-28-[facility] [place], [place] Start: 1955 Sex Assigned At Not on file [place], [place] Start: 02-16-2017 End: 03-27-2021 Tobacco smoking status [facility] Ex-smoker [facility] Start: 02-16-2017 End: 03-27-2021 Tobacco use and exposure Smokeless tobacco non-user [facility] Work Phone: Start: 03-27-2021 End: 01-24-2025 Alcohol intake Ex-drinker (finding) [facility] Work Phone: Start: 03-27-2021 History SDOH Alcohol Comment rarely [facility] Work Phone: Start: 01-27-2019 [facility] if ever smoked [facility] Start: 1955 Sex Assigned At Male W [facility] Start: 05-04-1965 End: 05-04-1990 History of tobacco use Current smoker [facility] Start: 11-30-2022 End: 01-24-2025 History of Social function [facility] Start: 11-30-2022 End: 01-24-2025 Tobacco use panel [facility] Start: 04-20-2022 End: 12-16-2022 Exposure to SARS-CoV-2 (event) Not sure [facility] Start: [birth year]-04-1965 End: 05-04-1990 History of tobacco use Cigarette Smoker [facility] Start: 08-20-2023 Alcohol intake Current drinke r of alcohol (finding) [facility] National Score (1-10 0), lower number is lower risk Not on file [facility] Start: 10-19-2013 Alcohol Comment weekend drinker [facility] How often to you hav e a drink containing alcohol? Monthly or less [facility] How many standard drinks containing alcohol do you have on a typical day? 1 or 2 [facility] How often do you hav e 6 or more drinks on 1 occasion? Never [facility] Start: 12-08-2021 Sex Male (finding) [facility] jesse Medical Equipment Procedure Code Equipment Code Equipment Origin al Text Equipment Identifier Dates Cement [employer] - [id number] Start: 02-22-2017 Functional Status Date Assessment Result Facility 01-24-2025 Patient Health Quest ionnaire 2 item (PHQ-2) [Reported] [facility] 08-21-2023 Are you deaf, or do you have serious difficulty hearing No 08/21/2023 2:57 PM LATOSHAT Jazzy Shaver RN No [facility] 08-21-2023 Are you blind, or do you have serious difficulty seeing, even when wearing glasses No 08/21/2023 2:57 PM Jazzy Schilling RN No [facility] 08-21-2023 Do you have serious difficulty walking or climbing stairs No 08/21/2023 2:57 PM Jazzy Schilling RN No [facility] 08-21-2023 Do you have difficul ty dressing or bathing No 08/21/2023 2:57 PM Jazzy Schilling RN No [facility] 08-21-2023 Because of a physica l, mental, or emotional condition, do you have difficulty doing errands alone such as visiting a physician's office or shopping No 08/21/2023 2:57 PM EDT Jazzy Shaver RN No [facility] Mental Status Date Assessment Result Facility 08-21-2023 Because of a physica l, mental, or emotional condition, do you have serious difficulty concentrating, remembering, or making decisions No 08/21/2023 2:57 PM EDT Jazzy Shaver RN No [facility] Clinical Notes 10-31-2013 to 02-20-2025 CHAY Hernandez CNP - 01/24/2025 11:00 AM Lazaro Holguin MD - 11/22/2024 1:30 PM EDTTelephone Encounter - Latonya Yoon LPN - 11/15/2024 12:50 PM EDTDischarge InstructionsAttachments Note Date & Type Note Facility 02-20-2025 Note HNO ID: [id number] Author: MELANIE ARGUELLES APRN.CRACK OFF PERSON Service: ? Author Type: Nurse Die Out Worker Type: Anesthesia Procedure Notes Filed: 02/20/2025 11:14 Note Text: ANESTHESIOLOGY PROCEDURE NOTE Airway General Information Procedure Start Time/Medication Administration: 02/20/2025 10:49 AM Procedure End Time: 02/20/2025 10:49 AM Patient location during procedure: OR (Q3) Timeout Performed Pre-procedure: timeout performed Consent Obtained: Yes Patient identity confirmed: arm band, care guest service team leader and patient Staffing CRACK OFF PERSON: Melanie Arguelles APRN.CRACK OFF PERSON Performed by: CRACK OFF PERSON Indications and Patient Condition Indications for airway management: anesthesia and airway protection Preoxygenated: yes anesthesia circuit Patient position: sniffing and reverse Trendelenburg Method: asleep Cricoid Pressure: No Manual In-Line Stabilization: No Difficult Mask: No (see narrative) Airway Accessory: oral airway (100mm (red)) Final Airway Details Final airway type: endotracheal airwayFinal Endotracheal Airway: ETT Cuffed: yes Successful intubation technique: video laryngoscopy Devices used: Mortensen and intubating stylet Endotracheal tube insertion site: oral Blade: Josh Blade size: #4 ETT size (mm): 7.5 Measured from: lips Measurement (cm): 22 Placement verified by: chest auscultation and capnometry Cormack-Lehane Classification: grade I - full view of glottis Number of attempts at approach: 1 Airway trauma: No. Failed airway: no Unrecognized esophageal intubation: no Airway not difficult Comments Easy Mortensen intubation. Mask vent with oral airway- initially need 2 person probably 2/2 sullivan, moustache. SIGNATURE: Melanie Arguelles APRN.CRNA PATIENT NAME: Ramsey Chance DATE: February 20, 2025 TIME: 11:10 AM CSN: [id number] [facility] 02-20-2025 Note Q3 Patient Name: Ramsey Chance Procedure Date: 02/20/2025 10:34 AM Date of : 1955 Admit Type: Outpatient Age: 69 Gender: Male Note Status: Finalized Attending MD: Lazaro Qiu MD, [id number] Procedure: Upper GI endoscopy and polypectomy (EMR) Indications: Therapeutic procedure for large gastric polyps Providers: Lazaro Qiu MD, Kenyetta Dimas (Fellow) Patient Profile: This is a 69 year old male. Refer to note in patient chart for documentation of history and physical. Referring Physician: Lazaro Qiu MD (Referring MD) Medicines: General Anesthesia Complications: No immediate complications. Requesting Provider: Procedure: Pre-Anesthesia Assessment: - Prior to the procedure, a History and Physical was performed, and patient medications and allergies were reviewed. The patient is competent. The risks and benefits of the procedure and the sedation options and risks were discussed with the patient. All questions were answered and informed consent was obtained. Patient identification and proposed procedure were verified in the pre-procedure area. Mental Status Examination: alert and oriented. Airway Examination: normal oropharyngeal airway and neck mobility. CV Examination: normal. Prophylactic Antibiotics: The patient does not require prophylactic antibiotics. Prior Anticoagulants: The patient has taken no anticoagulant or antiplatelet agents. After reviewing the risks and benefits, the patient was deemed in satisfactory condition to undergo the procedure. The anesthesia plan was to use moderate sedation / analgesia (conscious sedation). Immediately prior to administration of medications, the patient was re-assessed for adequacy to receive sedatives. The heart rate, respiratory rate, oxygen saturations, blood pressure, adequacy of pulmonary ventilation, and response to care were monitored throughout the procedure. The physical status of the patient was re-assessed after the procedure. After obtaining informed consent, the endoscope was passed under direct vision. Throughout the procedure, the patient's blood pressure, pulse, and oxygen saturations were monitored continuouslyThe Endoscope was introduced through the mouth, and advanced to the second part of duodenum. The upper GI endoscopy was accomplished without difficulty. The patient tolerated the procedure well. Moderate Sedation: General anesthesia was administered by the anesthesia team. Findings: The examined esophagus was normal. The entire examined stomach had an appearance of nodular gastritis. There was evidence of a 5mm inflammatory polyp in the cardia of the stomach and three inflammatory polyps in the antral/prepyloric area ranging in size from 10-15 mm. The borders of the polyps were delinated with high definition white light endoscopy and NBI. All of these polyps were removed via hot snare EMR technique. Blueboost was injected to achieve a submucosal lift and a snare was placed around the lesion. A total of four lesions were removed and each polypectomy sites were closed with TTS clips. Molina net was used to remove all four lesions from the stomach. Gastric biopsies were taken to rule out underlying H pylori. The in the duodenum was normal. Impression: -Four inflammatory appearing gastric polyps removed (5mm fundus x 1, 15mm antrum x 3) - Gastric biopsied for H.pylori Estimated Blood Loss: Estimated blood loss was minimal. Recommendation: - Use a proton pump inhibitor PO BID for 8 weeks. - Clear liquid diet for 1 day, then advance as tolerated to resume regular diet. - If doing well, discharge home tomorrow. - Return to GI clinic in 2 weeks. - Patient has a contact number available for emergencies. The signs and symptoms of potential delayed complications were discussed with the patient. Return to normal activities tomorrow. Written discharge instructions were provided to the patient. Procedure Code(s): --- Professional --- 67196 CPT copyright 2020 [employer]. All rights reserved. Attending Participation: I personally performed the entire procedure. Scope In: 10:54:48 AM Scope Out: 11:35:52 AM MD Lazaro Gaona MD 02/20/2025 11:46:17 AM This report has been signed electronically by Lazaro Qiu MD Number of Addenda: 0 Note Initiated On: 02/20/2025 10:34 AM [facility] 01-24-2025 History of Presen t illness Narrative Visit type: Established Patient Reason for Visit: Follow-up and Sleeping Problem Assessment and Plan 1. Obstructive sleep apnea Subjective HPI: ROMULO- Resmed 30 day report- BiPAP 02/11 Compliant Average nightly use 9 hrs 49 mins AHI 0.1/hr No leaks Today, patient states he is doing well with PAP therapy; comfortable. He wakes up feeling refreshed. He is still waking up with dry mouth. No new neurological issues REVIEW OF SYSTEMS: Review of Systems All other systems reviewed and are negative. Allergies[1] Current Medications[2] Medical History[3] Social History Tobacco Use Smoking status: Former Smokeless tobacco: Never Substance Use Topics Alcohol use: Not Currently Surgical History[4] Family History[5] Objective Vitals: BP 131/78 (BP Location: Right arm, Patient Position: Sitting, BP Cuff Size: Adult) Pulse 51 Ht 5' 10" (1.778 m) Wt 245 lb 6.4 oz (111 kg) BMI 35.21 kg/m General Appearance: Patient is in no apparent distress. Head is normocephalic, atraumatic Cardiovascular: Regular rate and rhythm. No heart murmurs. No carotid bruit Neurologic: Mentation: Alert and oriented x 3 to person, place and time. Speech and Language: Speech and language normal Concentration and Attention: Concentration normal Memory: Memory normal Fund of Knowledge: Fund of knowledge normal Cranial Nerves: II, III, IV, V, , VII, VIII, IX, X, XI, XII examined and were intact. Motor: Strength: Strength 5 out of 5 with normal tone Alternating Movements: Normal Cogwheel Rigidity: None Tone: Tone is normal Tremor / Involuntary Movements: None Deep Tendon Reflexes: 1 out of 4 symmetrical in all four limbs. Sensory: Normal sensation upper and lower extremities Coordination: Normal coordination upper and lower extremities Gait and Station: Station is normal. Gait is normal Data Reviewed and Summarized DIAGNOSTIC TESTING CBC: Lab Results Component Value Date WBC 8.8 02/01/2024 RBC 4.42 02/01/2024 HGB 13.4 02/01/2024 HCT 39.9 (L) 02/01/2024 MCV 90.3 02/01/2024 MCH 30.3 02/01/2024 MCHC 33.6 02/01/2024 RDW 13.6 02/01/2024 PLT 203 02/01/2024 MPV 11.2 02/01/2024 CMP: Lab Results Component Value Date NA 139 02/01/2024 K 4.4 02/01/2024 CL 104 02/01/2024 CO2 25 02/01/2024 BUN 22 (H) 02/01/2024 CREATININE 1.11 02/01/2024 CREATININE 1.02 08/11/2019 GLUCOSE 135 (H) 02/01/2024 PROT 7.3 08/11/2019 CALCIUM 9.6 02/01/2024 BILITOT 0.3 08/11/2019 ALKPHOS 67 08/11/2019 AST 44 08/11/2019 BMP: Lab Results Component Value Date NA 139 02/01/2024 K 4.4 02/01/2024 CL 104 02/01/2024 CO2 25 02/01/2024 BUN 22 (H) 02/01/2024 CREATININE 1.11 02/01/2024 CREATININE 1.02 08/11/2019 CALCIUM 9.6 02/01/2024 GLUCOSE 135 (H) 02/01/2024 PT/INR: Lab Results Component Value Date INR 1.1 08/20/2023 PTT: No results found for: "APTT", "PTT"[APTT} FLP: No results found for: "CHLPL", "TRIG", "HDL", "LDLCALC", "LDLDIRECT" TSH: No results found for: "TSH" VITAMIN B12: No results found for: "FSWYSRAH32" No results found for: "PHENYTOIN", "PHENOBARB", "VALPROATE", "CBMZ" No components found for: "TOPIRA" @RESULTINGLABINFO@ FERRITIN Date Value Ref Range Status 04/13/2023 49 18 - 464 ng/mL Final No results found for: "MARBELLA", "IMMUNOGLOBUL", "OLIGOBANDS" No results found for: "OUE42RR", HEPCAB No results found for: "CRP", "ANATITER", "ANCA" FERRITIN: Lab Results Component Value Date FERRITIN 49 04/13/2023 ---- US renal complete Narrative: Patient Name: RAMSEY CHANCE : 1955 [facility]#: [id number] Exam Date/Time: 03/13/2024 12:12 Procedure: US RENAL COMPLETE Ordering Provider: LEES JABER Reason For Exam: n20.1 EXAMINATION: RENAL ULTRASOUND HISTORY: Calculus of ureter TECHNIQUE: Sonography of the kidneys and urinary bladder was performed. Images were obtained and stored in a permanent archive. COMPARISON: CT abdomen and pelvis 02/01/2024 RESULT: Right Kidney: -Renal length: 13.1 cm -Parenchyma: Normal parenchymal echogenicity. Normal parenchymal thickness. -Collecting system: No hydronephrosis. -Calculus: Two echogenic shadowing foci consistent with nonobstructing renal calculi measuring up to 0.6 cm. -Lesion: 1.2 cm anechoic simple cyst with posterior acoustic enhancement laterally. Left Kidney: -Renal length: 13.1 cm -Parenchyma: Normal parenchymal echogenicity. Normal parenchymal thickness. -Collecting system: No hydronephrosis. -Calculus: No echogenic, shadowing calculus. -Lesion: None. Bladder: Decompressed. Bilateral renal jets noted. Impression: Nonobstructing right renal calculi. No hydronephrosis. Report Dictated on Electronically Signed By: Beltran Smith MD Electronically Signed Date/Time: 03/14/2024 8:26 AM EST @LASTAPPOINTMENTTHISPROV@ IMPRESSION and PLAN: Problem List Items Addressed This Visit None Visit Diagnoses Obstructive sleep apnea - Primary He is compliant with therapy and it is benefiting him. He is still experiencing dry mouth in the morning even after Dr. Fortune adjustment last year; humidifier is turned on. Will lower pressure again to 4/9 as his AHI is great and we have room for adjustment. RTO 1 year; sooner PRN I, CHAY Hernandez CNP, furnish ongoing care related to Ramsey Chance single, serious and complex condition(s) ROMULO. I assume responsibility for the patient's ongoing medical care of this condition. CHAY Hernandez CNP Electronically signed by CHAY Hernandez CNP on @TDNR@ at @NOWNR@ [1] Allergies Allergen Reactions Bee Venom Anaphylaxis and Swelling Sitagliptin Other reaction(s): caused pancreatitis, Other (See Comments), Other: See Comments, pancreatitis Caused pancreatitis Caused pancreatitis [2] Current Outpatient Medications: allopurinol (Zyloprim) 100 MG tablet, Take 100 mg by mouth., Disp: , Rfl: amLODIPine (Norvasc) 5 MG tablet, Take 5 mg by mouth daily., Disp: , Rfl: ascorbic acid (Vitamin C) 250 MG tablet, Take 250 mg by mouth daily., Disp: , Rfl: atorvastatin (Lipitor) 20 MG tablet, Take 20 mg by mouth daily., Disp: , Rfl: busPIRone (Buspar) 10 MG tablet, Take 10 mg by mouth 2 times daily., Disp: , Rfl: loratadine-pseudoephedrine ER (Claritin-D 24-hour) 10-240 MG 24 hr tablet, Take 1 tablet by mouth daily. Do not crush, chew, or split., Disp: , Rfl: losartan (Cozaar) 100 MG tablet, 100 mg., Disp: , Rfl: lovastatin (Mevacor) 40 MG tablet, 40 mg., Disp: , Rfl: metoprolol tartrate (Lopressor) 100 MG tablet, 100 mg., Disp: , Rfl: omeprazole OTC (PriLOSEC OTC) 20 MG EC tablet, Take 40 mg by mouth every morning (before breakfast)., Disp: , Rfl: pioglitazone (Actos) 30 MG tablet, Take 30 mg by mouth daily., Disp: , Rfl: SERTRALINE HCL PO, Take by mouth., Disp: , Rfl: cloNIDine (Catapres) 0.1 MG tablet, Take 0.1 mg by mouth 2 times daily., Disp: , Rfl: ferrous sulfate 325 (65 Fe) MG tablet, Take 325 mg by mouth. (Patient not taking: Reported on 01/24/2025), Disp: , Rfl: metFORMIN (Glucophage) 1000 MG tablet, Take 1,000 mg by mouth. (Patient not taking: Reported on 01/24/2025), Disp: , Rfl: pantoprazole (ProtoNix) 40 MG EC tablet, Take 40 mg by mouth daily. (Patient not taking: Reported on 01/24/2025), Disp: , Rfl: [3] Past Medical History: Diagnosis Date Depression Diabetes mellitus (HCC) GERD (gastroesophageal reflux disease) Hyperlipidemia Hypertension Sleep apnea Vertigo [4] Past Surgical History: Procedure Laterality Date CHOLECYSTECTOMY ENDOSCOPY VISIT OUTPATIENT (HISTORICAL) 08/2023 OTHER SURGICAL HISTORY Pins put in and then removed for leg fracture SHOULDER SURGERY [5] Family History Problem Relation Name Age of Onset Heart attack Father documented in this encounter [facility] [employer] 11-22-2024 History of Presen t illness Narrative [facility] NEW VIRTUAL VISIT I had a virtual consult with Mr. Chance today. His local doctors have given her a diagnosis of gastric polyps. This consult was requested by Dr. Ronan Del Castillo for an opinion regarding and my final recommendations will be communicated to the requesting health care provider by way of the shared medical record for internal providers or letter via the [employer] for external providers. I have communicated my name and active licensure. The patient's identity and physical location were verified at the time of this visit. Either the patient or their legal paper sales representative has been informed of the risks and benefits of -- and alternatives to -- treatment through a remote evaluation and consents to proceed with the evaluation remotely. HPI The patient is a 69-year-old male with diabetes, presenting for evaluation and management of gastric polyps. He reports that last year he underwent a procedure by Dr. Brewster to remove a polyp from the inside of his stomach, which was then clipped. Subsequently, the clip dislodged, resulting in his stomach filling with blood. He presented to [facility] emergency room and was transferred to [facility], where the procedure was repeated without further complications. On 10/13 (year not specified), he underwent another endoscopy, during which a large gastric polyp was identified near the gastric outlet, raising concern for possible obstruction. He states that pathology from previous polyp removals has always been negative for cancer, and he has not been told of any adenomas. He reports that the most recent pathology is pending, but he was informed by his physician that the results were negative for cancer. He has diabetes, currently managed with Jardiance, and notes that his blood sugars are running approximately 190-200 mg/dL. He previously discontinued metformin due to gastrointestinal side effects, at which time his blood sugars were around 140 mg/dL. He denies any current heart issues. The patient currently takes omeprazole 20 mg once daily and denies use of other anti-acid medications. He reports no family history of esophageal or gastric cancer. Diagnostics: - EGD and colonoscopy: 3-4 colonic and gastric polyps removed, pathology negative for malignancy - (10/13) EGD: Polyp pathology negative for malignancy - EGD: Polyp removed, pathology negative for malignancy REVIEWED ITEMS EGD - 08/20/2023 Findings: Scant hematin (altered blood/orpwzb-poguos-emtx material) was found in the entire esophagus which had refluxed from the stomach. There were no obvious gross lesions in the esophagus. Significant amount of hematin and organized blood clots were found in the entire examined stomach. No active bleeding observed. One non-bleeding cratered gastric ulcer with pigmented material was found on the anterior wall of the gastric body. The lesion was 5 mm in largest dimension. For hemostasis, one hemostatic clip was successfully placed (MR conditional). 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 There was no bleeding during, or at the end, of the procedure. Hematin was found in the entire duodenum. No gross lesions were seen in the duodenum on this limited exam. Impression: - Scant hematin in the esophagus. No gross lesions. - Hematin and blood clots throughout the entire stomach. Lavage, suction, Molina net clearance resulted in partial mucosal exam. No active bleeding. - Non-bleeding gastric ulcer with pigmented material. Clip (MR conditional) was placed. - Hematin in the entire examined duodenum. No gross lesions. - No specimens collected. No active bleeding noted throughout entire endoscopic exam. Estimated Blood Loss: Estimated blood loss was minimal. Current Outpatient Medications Medication Sig Dispense Refill pantoprazole DR (PROTONIX) 40 mg tablet Take 1 tablet by mouth two times a day before meals at 6 am and 4 pm. Patient should start on August 22, 2023. 60 tablet 0 cloNIDine HCl (CATAPRES) 0.1 mg tablet Take 0.1 mg by mouth twice daily. ASCORBIC ACID ORAL Take by mouth. amLODIPine (NORVASC) 5 mg tablet Take 5 mg by mouth once daily. ferrous sulfate 325 mg (65 mg iron) tablet Take 325 mg by mouth daily with breakfast. losartan (COZAAR) 100 mg tablet Take 100 mg by mouth once daily. sucralfate (CARAFATE) 1 gram tablet Take 1 g by mouth four times daily. promethazine (PHENERGAN) 12.5 mg tablet Take 12.5 mg by mouth every 6 hours as needed. allopurinol (ZYLOPRIM) 100 mg tablet Take 100 mg by mouth once daily. metFORMIN (GLUCOPHAGE) 1,000 mg tablet Take 1 tablet by mouth twice daily. 180 tablet 2 pioglitazone (ACTOS) 45 mg tablet Take 1 tablet by mouth once daily. 90 tablet 3 irbesartan (AVAPRO) 300 mg tablet Take 1 tablet by mouth daily at bedtime. 90 tablet 3 Lovastatin 40 mg tablet Take 1 tablet by mouth daily at bedtime. 90 tablet 3 metoprolol tartrate, short acting, (LOPRESSOR) 100 mg tablet Take 1 tablet by mouth twice daily. 180 tablet 3 venlafaxine XR 75 mg 24 hr capsule Take 225 mg by mouth once daily. ASPIRIN 81 MG TAB Take one(1) tablet daily. 0 No current facility-administered medications for this visit. ALLERGIES Allergen Reactions Januvia [Sitaglipti* Other: See Comments Caused pancreatitis PAST MEDICAL HISTORY Diagnosis Date Acute pancreatitis 10/19/2013 From Januvia Agitation 10/31/2013 Allergic rhinitis 10/31/2013 Anxiety 10/31/2013 Cervical disc herniation 10/31/2013 Right C5-C6 Chronic pain 10/19/2013 Tail bone and right leg Controlled substance agreement signed. Had a metal darrell in the femur, w/u done in past on coccyx pain. Depression 10/19/2013 Diverticulosis 10/31/2013 DM type 2 (diabetes mellitus, type 2) (HCC) Fatty liver 10/31/2013 GERD (gastroesophageal reflux disease) 10/19/2013 Hemorrhoids 10/31/2013 HTN (hypertension) Hx of colonic polyps 10/31/2013 Dr. 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 Knees and cervical spine. Obesity 10/31/2013 Sciatica 10/19/2013 Secondary to sacral issues Sleep apnea 10/31/2013 On CPAP @ 6 cm Verruca vulgaris 10/31/2013 PAST SURGICAL HISTORY Procedure Laterality Date COLONOSCOPY 08/02/2014 Dr. Walsh, + polyps OPEN REPAIR OF ROTATOR CUFF ACUTE 1982 Rotator cuff repair-right shoulder OTHER SURGICAL HISTORY (PLEASE SPECIFY) HX 2017 t-10 fracture PAST SURGICAL HISTORY OF pin in right thigh-removed TONSILLECTOMY HX 196 PHYSICAL FINDINGS OF NOTE: Appears well LABS Hemoglobin (g/dL) Date Value 10/29/2023 14.6 05/26/2018 13.2 Hematocrit (%) Date Value 10/29/2023 44.1 05/26/2018 41.1 WBC (k/uL) Date Value 10/29/2023 16.53 05/26/2018 6.59 Platelet Count (k/uL) Date Value 10/29/2023 253 05/26/2018 251 Glucose (mg/dL) Date Value 08/20/2023 132 05/26/2018 169 Potassium (mmol/L) Date Value 08/20/2023 3.6 05/26/2018 4.1 Sodium (mmol/L) Date Value 08/20/2023 143 05/26/2018 141 Chloride (mmol/L) Date Value 08/20/2023 108 05/26/2018 98 CO2 (mmol/L) Date Value 08/20/2023 23 05/26/2018 28 Creatinine (mg/dL) Date Value 08/20/2023 0.98 05/26/2018 0.80 BUN (mg/dL) Date Value 08/20/2023 33 05/26/2018 16 Anion Gap (mmol/L) Date Value 08/20/2023 12 05/26/2018 15 Calcium (mg/dL) Date Value 05/26/2018 10.0 Calcium, Total (mg/dL) Date Value 08/20/2023 8.8 Assessment ASSESSMENT 1. Gastric polyposis (K31.7) Encounter for screening for malignant neoplasm of stomach (Z12.0) Recent endoscopy revealed a large gastric polyp near the pylorus, potentially obstructive. Previous pathology reports have been negative for malignancy. Awaiting current pathology results and color images for further evaluation. - Schedule endoscopic resection procedure. - Patient to have NPO status after midnight prior to the procedure. - Anesthesia will be administered with intubation. - Post-procedure recovery with anticipated same-day discharge; overnight observation if necessary. - Follow-up visit 2-3 weeks post-procedure to discuss pathology results. - Maintain current omeprazole 20 mg daily; potential increase to BID for 3 months post-procedure based on findings. - Dietary modifications post-procedure: 3 days liquid diet, 3 days soft diet, then resume normal diet. - Coordination of scheduling through [facility]; contact number provided: [phone]. 2. Type 2 diabetes mellitus without complication, without long-term current use of insulin (HCC) (E11.9) Blood glucose levels currently ranging from 190-200 mg/dL. Previously discontinued metformin due to adverse effects; recently resumed Jardiance therapy. Continue Jardiance as prescribed. I spent a total of 60 minutes on the date of the service which included preparing to see the patient, [id number] patient care, completing clinical documentation, obtaining and/or reviewing separately obtained history, counseling and educating the patient/family/caregiver and ordering medications, tests, or procedures. Lazaro Qiu MD Answers submitted by the patient for this visit: Review of Systems Gastroenterology (Submitted on 11/18/2024) Fever: No Chills: No Night Sweats: No Unitentional Weight Change: No A Cough: No Difficulty Breathing: No Chest Pain: No Belly pain: No A feeling of fullness or have belly pain after eating: No Food getting stuck in your throat or chest after eating: No Nausea - that is, a feeling like you could vomit: No Regurgitation - that is, food or liquid coming back up into your throat or mouth without vomiting, or feel burning behind your breast bone: Yes Loss of appetite: No To throw up or vomit: No Blood in your stools: No Black tarry stools: No Loose or watery stools: Yes The feeling like you need to empty your bowels right away - that is, feel as if you would have an accident: No Bowel incontinence - that is, have an accident because you cannot make it to the bathroom in time: No Problems with straining while having bowel movements , hard or lumpy stools, or feel unfinished (that you have not passed all your stool): No Pain in rectum or anus during bowel movements: No Problems with jaundice - that is, yellow discoloration of your skin or eyes, now or in the past: No Problems with having to flush the toilet more than two times due to oily stool, or see stool floating with oil: No documented in this encounter [facility] 11-22-2024 Note HNO ID: [id number] Author: LAZARO QIU MD Service: ? Author Type: Physician Type: Progress Notes Filed: 11/22/2024 14:00 Note Text: [facility] NEW VIRTUAL VISIT I had a virtual consult with Mr. Chance today. His local doctors have given her a diagnosis of gastric polyps. This consult was requested by Dr. Ronan Del Castillo for an opinion regarding and my final recommendations will be communicated to the requesting health care provider by way of the shared medical record for internal providers or letter via the [employer] for external providers. I have communicated my name and active licensure. The patient's identity and physical location were verified at the time of this visit. Either the patient or their legal paper sales representative has been informed of the risks and benefits of -- and alternatives to -- treatment through a remote evaluation and consents to proceed with the evaluation remotely. HPI The patient is a 69-year-old male with diabetes, presenting for evaluation and management of gastric polyps. He reports that last year he underwent a procedure by Dr. Brewster to remove a polyp from the inside of his stomach, which was then clipped. Subsequently, the clip dislodged, resulting in his stomach filling with blood. He presented to [facility] emergency room and was transferred to [facility], where the procedure was repeated without further complications. On 10/13 (year not specified), he underwent another endoscopy, during which a large gastric polyp was identified near the gastric outlet, raising concern for possible obstruction. He states that pathology from previous polyp removals has always been negative for cancer, and he has not been told of any adenomas. He reports that the most recent pathology is pending, but he was informed by his physician that the results were negative for cancer. He has diabetes, currently managed with Jardiance, and notes that his blood sugars are running approximately 190-200 mg/dL. He previously discontinued metformin due to gastrointestinal side effects, at which time his blood sugars were around 140 mg/dL. He denies any current heart issues. The patient currently takes omeprazole 20 mg once daily and denies use of other anti-acid medications. He reports no family history of esophageal or gastric cancer. Diagnostics: - EGD and colonoscopy: 3-4 colonic and gastric polyps removed, pathology negative for malignancy - (10/13) EGD: Polyp pathology negative for malignancy - EGD: Polyp removed, pathology negative for malignancy REVIEWED ITEMS EGD - 08/20/2023 Findings: Scant hematin (altered blood/yyhmua-qxcevy-xchr material) was found in the entire esophagus which had refluxed from the stomach. There were no obvious gross lesions in the esophagus. Significant amount of hematin and organized blood clots were found in the entire examined stomach. No active bleeding observed. One non-bleeding cratered gastric ulcer with pigmented material was found on the anterior wall of the gastric body. The lesion was 5 mm in largest dimension. For hemostasis, one hemostatic clip was successfully placed (MR conditional). 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 There was no bleeding during, or at the end, of the procedure. Hematin was found in the entire duodenum. No gross lesions were seen in the duodenum on this limited exam. Impression: - Scant hematin in the esophagus. No gross lesions. - Hematin and blood clots throughout the entire stomach. Lavage, suction, Molina net clearance resulted in partial mucosal exam. No active bleeding. - Non-bleeding gastric ulcer with pigmented material. Clip (MR conditional) was placed. - Hematin in the entire examined duodenum. No gross lesions. - No specimens collected. No active bleeding noted throughout entire endoscopic exam. Estimated Blood Loss: Estimated blood loss was minimal. Current Outpatient Medications Medication Sig Dispense Refill pantoprazole DR (PROTONIX) 40 mg tablet Take 1 tablet by mouth two times a day before meals at 6 am and 4 pm. Patient should start on August 22, 2023. 60 tablet 0 cloNIDine HCl (CATAPRES) 0.1 mg tablet Take 0.1 mg by mouth twice daily. ASCORBIC ACID ORAL Take by mouth. amLODIPine (NORVASC) 5 mg tablet Take 5 mg by mouth once daily. ferrous sulfate 325 mg (65 mg iron) tablet Take 325 mg by mouth daily with breakfast. losartan (COZAAR) 100 mg tablet Take 100 mg by mouth once daily. sucralfate (CARAFATE) 1 gram tablet Take 1 g by mouth four times daily. promethazine (PHENERGAN) 12.5 mg tablet Take 12.5 mg by mouth every 6 hours as needed. allopurinol (ZYLOPRIM) 100 mg tablet Take 100 mg by mouth once daily. metFORMIN (GLUCOPHAGE) 1,000 mg tablet Take 1 tablet by mouth twice daily. 180 tablet 2 pioglitazone (ACTOS) 45 mg tablet Take 1 tablet by mouth once daily. 90 tablet 3 irbesartan (AVAPRO) 300 mg table (more content not included)... [facility] 11-15-2024 Telephone encounter Note Called patient for details on reason for visit. Pt was unclear; called ofc of referring provider Dr. Ronan Agustin M.A. will fax over most recent EGD for upcoming virtual visit. [facility] 11-15-2024 Miscellaneous Notes Called patient for details on reason for visit. Pt was unclear; called ofc of referring provider Dr. Ronan Agustin M.A. will fax over most recent EGD for upcoming virtual visit. documented in this encounter [facility] 02-01-2024 Hospital Discharg e instructions Feng Hagan MD - 02/01/2024 3:[address] scan shows a 4 mm stone that you have almost passed on the left side. You have to very small 2 mm stones in the right kidney that are not causing any issue at the moment. I have provided urology referral to follow-up outpatient regarding this. Drink lots of fluids and take ibuprofen for any pain. Return if anything worsens. There is no infection in your urine. The following attachments cannot be sent through Care Everywhere.Kidney Stone, Adult ED ([place])documented in this encounter [facility] 02-01-2024 Emergency department Note EMERGENCY DEPARTMENT ENCOUNTER Pt Name: Ramsey Chance Birthdate 1955 Date of evaluation: 02/01/2024 ED Provider: Feng Hagan MD CHIEF COMPLAINT Chief Complaint Patient presents with Flank Pain HISTORY OF PRESENT ILLNESS (Location/Symptom, Timing/Onset, Context/Setting, Quality, Duration, Modifying Factors, Severity) Note limiting factors. I wore appropriate PPE for the entirety of this encounter. HPI Ramsey Chance is a 68 y.o. who presents to the emergency department with chief complaint of flank and abdominal pain. States it started 2 days ago denies any injury or fall. He has a history of kidney stones and it feels similar. He states the pain radiates to the left side of the abdomen. No scrotal testicular pain. States he had a little bit of burning with urination but no dark or bloody urine. Denies upper abdominal or right-sided abdominal pain. Denies chest pain shortness of breath fevers chills. Slight nausea. He has a history of hypertension hyperlipidemia diabetes as well. He denies any weakness numbness tingling in the legs or constipation diarrhea or saddle anesthesia. Nursing Notes were reviewed. Limitations to history: None Outside historians: Significant other REVIEW OF SYSTEMS Review of Systems Constitutional: Negative for chills and fever. HENT: Negative for ear pain and sore throat. Eyes: Negative for pain and visual disturbance. Respiratory: Negative for cough and shortness of breath. Cardiovascular: Negative for chest pain and palpitations. Gastrointestinal: Positive for abdominal pain and nausea. Negative for vomiting. Genitourinary: Positive for dysuria and flank pain. Negative for hematuria. Musculoskeletal: Negative for arthralgias and back pain. Skin: Negative for color change and rash. Neurological: Negative for seizures and syncope. All other systems reviewed and are negative. Pertinent positives and negatives as per HPI. PAST MEDICAL HISTORY Past Medical History: Diagnosis Date Depression Diabetes mellitus (HCC) GERD (gastroesophageal reflux disease) Hyperlipidemia Hypertension Sleep apnea Vertigo SURGICAL HISTORY Past Surgical History: Procedure Laterality Date CHOLECYSTECTOMY ENDOSCOPY VISIT OUTPATIENT (HISTORICAL) 08/2023 OTHER SURGICAL HISTORY Pins put in and then removed for leg fracture SHOULDER SURGERY CURRENT MEDICATIONS Previous Medications ALLOPURINOL (ZYLOPRIM) 100 MG TABLET Take 100 mg by mouth. AMLODIPINE (NORVASC) 5 MG TABLET Take 5 mg by mouth daily. ASCORBIC ACID (VITAMIN C) 250 MG TABLET Take 250 mg by mouth daily. CLONIDINE (CATAPRES) 0.1 MG TABLET Take 0.1 mg by mouth 2 times daily. FERROUS SULFATE 325 (65 FE) MG TABLET Take 325 mg by mouth. LORATADINE-PSEUDOEPHEDRINE ER (CLARITIN-D 24-HOUR) 10-240 MG 24 HR TABLET Take 1 tablet by mouth daily. Do not crush, chew, or split. LOSARTAN (COZAAR) 100 MG TABLET 100 mg. LOVASTATIN (MEVACOR) 40 MG TABLET 40 mg. METFORMIN (GLUCOPHAGE) 1000 MG TABLET Take 1,000 mg by mouth. METOPROLOL TARTRATE (LOPRESSOR) 100 MG TABLET 100 mg. PANTOPRAZOLE (PROTONIX) 40 MG EC TABLET Take 40 mg by mouth daily. PIOGLITAZONE (ACTOS) 30 MG TABLET Take 30 mg by mouth daily. SERTRALINE HCL PO Take by mouth. ALLERGIES Bee venom and Sitagliptin FAMILY HISTORY Family History Problem Relation Name Age of Onset Heart attack Father SOCIAL HISTORY Social History Socioeconomic History Marital status: Tobacco Use Smoking status: Former Smokeless tobacco: Never Substance and Sexual Activity Alcohol use: Not Currently Drug use: Never SCREENINGS PHYSICAL EXAM ED Triage Vitals Temp Heart Rate Resp BP 02/01/24 1226 02/01/24 1227 02/01/24 1227 02/01/24 1227 36.5 C (97.7 F) 55 16 (!) 151/73 SpO2 Temp Source Heart Rate Source Patient Position 02/01/24 1227 02/01/24 1226 02/01/24 1227 -- 97 % Oral Monitor BP Location FiO2 (%) -- -- Physical Exam Vitals and nursing note reviewed. Constitutional: General: He is not in acute distress. Appearance: He is well-developed. He is obese. He is not ill-appearing or diaphoretic. HENT: Head: Normocephalic and atraumatic. Eyes: General: No scleral icterus. Extraocular Movements: Extraocular movements intact. Conjunctiva/sclera: Conjunctivae normal. Pupils: Pupils are equal, round, and reactive to light. Cardiovascular: Rate and Rhythm: Normal rate and regular rhythm. Pulmonary: Effort: Pulmonary effort is normal. No respiratory distress. Breath sounds: Normal breath sounds. Abdominal: General: There is no distension. Palpations: Abdomen is soft. There is no mass. Tenderness: There is abdominal tenderness. There is no right CVA tenderness, left CVA tenderness, guarding or rebound. Comments: Tenderness to the left lumbar musculature laterally no midline tenderness of the CTL spine, no overlying skin changes Musculoskeletal: General: No swelling. Cervical back: Neck supple. No rigidity. Skin: General: Skin is warm and dry. Capillary Refill: Capillary refill takes less than 2 seconds. Neurological: General: No focal deficit present. Mental Status: He is alert and oriented to person, place, and time. Psychiatric: Mood and Affect: Mood normal. DIAGNOSTIC RESULTS Procedures/EKG: EKG was reviewed by myself. Physician EKG interpretation can be found in [facility] RADIOLOGY (Per Emergency Physician): CT abdomen pelvis shows stranding around the left kidney with what appears to be a small obstructing left distal ureteral stone Interpretation per the Radiologist below, if available at the time of this note: CT abdomen pelvis wo IV contrast Final Result Mild left hydronephrosis. A 4 mm stone in the left ureterovesical junction. Report Dictated on Electronically Signed By: Zach Mujica MD Electronically Signed Date/Time: 02/01/2024 2:07 PM EDT ED BEDSIDE ULTRASOUND: Performed by ED Physician - none LABS: Labs Reviewed COMPLETE URINALYSIS - Abnormal Result Value Color, Urine Yellow Clarity, Urine Turbid (*) pH, Urine 5.5 Leukocytes, Urine Negative Nitrite, Urine Negative Protein, Urine 30 (*) Glucose, Urine Normal Bilirubin, Urine Negative Ketones, Urine Negative Urobilinogen, Urine Normal Blood, Urine 1.0 (*) Volume, Urine 12 mL RBC, Urine 26-50 (*) WBC, Urine Negative Squamous Epithelial, Urine Negative Bacteria, Urine Moderate (*) Mucus, Urine Moderate (*) Uric Acid Crystals, Urine Moderate (*) SPECIFIC GRAVITY OF URINE (NUMERIC) 1.027 CBC WITH AUTO DIFFERENTIAL - Abnormal Auto WBC 8.8 RBC 4.42 Hemoglobin 13.4 Hematocrit 39.9 (*) MCV 90.3 MCH 30.3 MCHC 33.6 RDW 13.6 Platelets 203 MPV 11.2 nRBC 0.0 Neutrophils Relative 68.4 Lymphocytes Relative 16.0 Monocytes Relative 9.5 Eosinophils Relative 4.9 Basophils Relative 0.6 Immature Grans % 0.6 Neutrophils Absolute 6.0 Lymphocytes Absolute 1.4 Monocytes Absolute 0.8 Eosinophils Absolute 0.4 Basophils Absolute 0.1 Immature Grans Absolute 0.1 (*) BASIC METABOLIC PANEL - Abnormal SODIUM 139 POTASSIUM 4.4 CHLORIDE 104 CARBON DIOXIDE 25 UREA NITROGEN 22 (*) CREATININE 1.11 GLUCOSE 135 (*) CALCIUM 9.6 ANION GAP 11 eGFR 72.3 Narrative: Moderately hemolyzed sample. Interpret results with caution. LIPASE - Normal LIPASE 218 COMPLETE URINALYSIS WITH REFLEX TO CULTURE Narrative: The following orders were created for panel order Urinalysis complete with reflex to Culture. Procedure Abnormality Status --------- ------ Complete Urinalysis[[id number]] Abnormal Final result Please view results for these tests on the individual orders. All other labs were within normal range or not returned as of this dictation. EMERGENCY DEPARTMENT COURSE and DIFFERENTIAL DIAGNOSIS/MDM: Vitals: Vitals: 02/01/24 1226 02/01/24 1227 02/01/24 1458 BP: (!) 151/73 128/60 Pulse: 55 54 Resp: 16 16 Temp: 36.5 C (97.7 F) TempSrc: Oral SpO2: 97% 100% Weight: 109 kg (240 lb) Height: 1.778 m (5' 10") 68-year-old male presents with left flank pain left-sided abdominal pain burning with urination. Differential UTI pyelonephritis kidney stone diverticulitis pancreatitis. Plan is for labs urine pain control with Toradol morphine Zofran fluids and CT abdomen pelvis without contrast to evaluate for stone. Medical history impacting this visit includes prior kidney stones. Diagnoses as of 02/01/24 1512 Ureteral stone with hydronephrosis Medications sodium chloride 0.9 % bolus 1,000 mL (0 mL IntraVENous Stopped 02/01/24 1401) morphine injection 4 mg (4 mg IntraVENous Given 02/01/24 1305) ketorolac (Toradol) injection 15 mg (15 mg IntraVENous Given 02/01/24 1303) ondansetron (Zofran) injection 4 mg (4 mg IntraVENous Given 02/01/24 1302) REVAL: CT as above. Patient feels improved. He has normal renal function normal white count no signs of sepsis. Given that it is 4 mm he should be able to pass this on his own. Recommend fluids Tylenol ibuprofen. He declined narcotic medication. Do not believe Flomax is necessary. Return precautions provided. CRITICAL CARE TIME None CONSULTS: None PROCEDURES: Unless otherwise noted below, none Procedures Patients symptoms are consistent with sepsis, severe sepsis, or septic shock (If yes use ".sepsiscoremeasure"): no FINAL IMPRESSION 1. Ureteral stone with hydronephrosis DISPOSITION Discharge 02/01/2024 03:10:52 PM PATIENT REFERRED TO: [facility] - [address] [facility] [id number] DISCHARGE MEDICATIONS: New Prescriptions No medications on file (Comment: Please note this report has been produced using speech recognition software and may contain errors related to that system including errors in grammar, punctuation, and spelling, as well as words and phrases that may be inappropriate. If there are any questions or concerns please feel free to contact the dictating provider for clarification.) Feng Hagan MD (electronically signed) Emergency Medicine Provider Feng Hagan MD 02/01/24 1512 Patient to room 15 with c/o left flank pain, that radiates around to his abdomen and his back that started on Wednesday. Patient has a history of kidney stones. V/S obtained, call light within reach. documented in this encounter [facility] 02-01-2024 Emergency department Triage note Patient to room 15 with c/o left flank pain, that radiates around to his abdomen and his back that started on Wednesday. Patient has a history of kidney stones. V/S obtained, call light within reach. [facility] 02-01-2024 Physician Emergency department Note EMERGENCY DEPARTMENT ENCOUNTER Pt Name: Ramsey Chance Birthdate 1955 Date of evaluation: 02/01/2024 ED Provider: Feng Hagan MD CHIEF COMPLAINT Chief Complaint Patient presents with Flank Pain HISTORY OF PRESENT ILLNESS (Location/Symptom, Timing/Onset, Context/Setting, Quality, Duration, Modifying Factors, Severity) Note limiting factors. I wore appropriate PPE for the entirety of this encounter. HPI Ramsey Chance is a 68 y.o. who presents to the emergency department with chief complaint of flank and abdominal pain. States it started 2 days ago denies any injury or fall. He has a history of kidney stones and it feels similar. He states the pain radiates to the left side of the abdomen. No scrotal testicular pain. States he had a little bit of burning with urination but no dark or bloody urine. Denies upper abdominal or right-sided abdominal pain. Denies chest pain shortness of breath fevers chills. Slight nausea. He has a history of hypertension hyperlipidemia diabetes as well. He denies any weakness numbness tingling in the legs or constipation diarrhea or saddle anesthesia. Nursing Notes were reviewed. Limitations to history: None Outside historians: Significant other REVIEW OF SYSTEMS Review of Systems Constitutional: Negative for chills and fever. HENT: Negative for ear pain and sore throat. Eyes: Negative for pain and visual disturbance. Respiratory: Negative for cough and shortness of breath. Cardiovascular: Negative for chest pain and palpitations. Gastrointestinal: Positive for abdominal pain and nausea. Negative for vomiting. Genitourinary: Positive for dysuria and flank pain. Negative for hematuria. Musculoskeletal: Negative for arthralgias and back pain. Skin: Negative for color change and rash. Neurological: Negative for seizures and syncope. All other systems reviewed and are negative. Pertinent positives and negatives as per HPI. PAST MEDICAL HISTORY Past Medical History: Diagnosis Date Depression Diabetes mellitus (HCC) GERD (gastroesophageal reflux disease) Hyperlipidemia Hypertension Sleep apnea Vertigo SURGICAL HISTORY Past Surgical History: Procedure Laterality Date CHOLECYSTECTOMY ENDOSCOPY VISIT OUTPATIENT (HISTORICAL) 08/2023 OTHER SURGICAL HISTORY Pins put in and then removed for leg fracture SHOULDER SURGERY CURRENT MEDICATIONS Previous Medications ALLOPURINOL (ZYLOPRIM) 100 MG TABLET Take 100 mg by mouth. AMLODIPINE (NORVASC) 5 MG TABLET Take 5 mg by mouth daily. ASCORBIC ACID (VITAMIN C) 250 MG TABLET Take 250 mg by mouth daily. CLONIDINE (CATAPRES) 0.1 MG TABLET Take 0.1 mg by mouth 2 times daily. FERROUS SULFATE 325 (65 FE) MG TABLET Take 325 mg by mouth. LORATADINE-PSEUDOEPHEDRINE ER (CLARITIN-D 24-HOUR) 10-240 MG 24 HR TABLET Take 1 tablet by mouth daily. Do not crush, chew, or split. LOSARTAN (COZAAR) 100 MG TABLET 100 mg. LOVASTATIN (MEVACOR) 40 MG TABLET 40 mg. METFORMIN (GLUCOPHAGE) 1000 MG TABLET Take 1,000 mg by mouth. METOPROLOL TARTRATE (LOPRESSOR) 100 MG TABLET 100 mg. PANTOPRAZOLE (PROTONIX) 40 MG EC TABLET Take 40 mg by mouth daily. PIOGLITAZONE (ACTOS) 30 MG TABLET Take 30 mg by mouth daily. SERTRALINE HCL PO Take by mouth. ALLERGIES Bee venom and Sitagliptin FAMILY HISTORY Family History Problem Relation Name Age of Onset Heart attack Father SOCIAL HISTORY Social History Socioeconomic History Marital status: Tobacco Use Smoking status: Former Smokeless tobacco: Never Substance and Sexual Activity Alcohol use: Not Currently Drug use: Never SCREENINGS PHYSICAL EXAM ED Triage Vitals Temp Heart Rate Resp BP 02/01/24 1226 02/01/24 1227 02/01/24 1227 02/01/24 1227 36.5 C (97.7 F) 55 16 (!) 151/73 SpO2 Temp Source Heart Rate Source Patient Position 02/01/24 1227 02/01/24 1226 02/01/24 1227 -- 97 % Oral Monitor BP Location FiO2 (%) -- -- Physical Exam Vitals and nursing note reviewed. Constitutional: General: He is not in acute distress. Appearance: He is well-developed. He is obese. He is not ill-appearing or diaphoretic. HENT: Head: Normocephalic and atraumatic. Eyes: General: No scleral icterus. Extraocular Movements: Extraocular movements intact. Conjunctiva/sclera: Conjunctivae normal. Pupils: Pupils are equal, round, and reactive to light. Cardiovascular: Rate and Rhythm: Normal rate and regular rhythm. Pulmonary: Effort: Pulmonary effort is normal. No respiratory distress. Breath sounds: Normal breath sounds. Abdominal: General: There is no distension. Palpations: Abdomen is soft. There is no mass. Tenderness: There is abdominal tenderness. There is no right CVA tenderness, left CVA tenderness, guarding or rebound. Comments: Tenderness to the left lumbar musculature laterally no midline tenderness of the CTL spine, no overlying skin changes Musculoskeletal: General: No swelling. Cervical back: Neck supple. No rigidity. Skin: General: Skin is warm and dry. Capillary Refill: Capillary refill takes less than 2 seconds. Neurological: General: No focal deficit present. Mental Status: He is alert and oriented to person, place, and time. Psychiatric: Mood and Affect: Mood normal. DIAGNOSTIC RESULTS Procedures/EKG: EKG was reviewed by myself. Physician EKG interpretation can be found in [facility] RAD[facility] (Per Emergency Physician): CT abdomen pelvis shows stranding around the left kidney with what appears to be a small obstructing left distal ureteral stone Interpretation per the Radiologist below, if available at the time of this note: CT abdomen pelvis wo IV contrast Final Result Mild left hydronephrosis. A 4 mm stone in the left ureterovesical junction. Report Dictated on Electronically Signed By: Zach Mujica MD Electronically Signed Date/Time: 02/01/2024 2:07 PM EDT ED BEDSIDE ULTRASOUND: Performed by ED Physician - none LABS: Labs Reviewed COMPLETE URINALYSIS - Abnormal Result Value Color, Urine Yellow Clarity, Urine Turbid (*) pH, Urine 5.5 Leukocytes, Urine Negative Nitrite, Urine Negative Protein, Urine 30 (*) Glucose, Urine Normal Bilirubin, Urine Negative Ketones, Urine Negative Urobilinogen, Urine Normal Blood, Urine 1.0 (*) Volume, Urine 12 mL RBC, Urine 26-50 (*) WBC, Urine Negative Squamous Epithelial, Urine Negative Bacteria, Urine Moderate (*) Mucus, Urine Moderate (*) Uric Acid Crystals, Urine Moderate (*) SPECIFIC GRAVITY OF URINE (NUMERIC) 1.027 CBC WITH AUTO DIFFERENTIAL - Abnormal Auto WBC 8.8 RBC 4.42 Hemoglobin 13.4 Hematocrit 39.9 (*) MCV 90.3 MCH 30.3 MCHC 33.6 RDW 13.6 Platelets 203 MPV 11.2 nRBC 0.0 Neutrophils Relative 68.4 Lymphocytes Relative 16.0 Monocytes Relative 9.5 Eosinophils Relative 4.9 Basophils Relative 0.6 Immature Grans % 0.6 Neutrophils Absolute 6.0 Lymphocytes Absolute 1.4 Monocytes Absolute 0.8 Eosinophils Absolute 0.4 Basophils Absolute 0.1 Immature Grans Absolute 0.1 (*) BASIC METABOLIC PANEL - Abnormal SODIUM 139 POTASSIUM 4.4 CHLORIDE 104 CARBON DIOXIDE 25 UREA NITROGEN 22 (*) CREATININE 1.11 GLUCOSE 135 (*) CALCIUM 9.6 ANION GAP 11 eGFR 72.3 Narrative: Moderately hemolyzed sample. Interpret results with caution. LIPASE - Normal LIPASE 218 COMPLETE URINALYSIS WITH REFLEX TO CULTURE Narrative: The following orders were created for panel order Urinalysis complete with reflex to Culture. Procedure Abnormality Status --------- ------ Complete Urinalysis[[id number]] Abnormal Final result Please view results for these tests on the individual orders. All other labs were within normal range or not returned as of this dictation. EMERGENCY DEPARTMENT COURSE and DIFFERENTIAL DIAGNOSIS/MDM: Vitals: Vitals: 02/01/24 1226 02/01/24 1227 02/01/24 1458 BP: (!) 151/73 128/60 Pulse: 55 54 Resp: 16 16 Temp: 36.5 C (97.7 F) TempSrc: Oral SpO2: 97% 100% Weight: 109 kg (240 lb) Height: 1.778 m (5' 10") 68-year-old male presents with left flank pain left-sided abdominal pain burning with urination. Differential UTI pyelonephritis kidney stone diverticulitis pancreatitis. Plan is for labs urine pain control with Toradol morphine Zofran fluids and CT abdomen pelvis without contrast to evaluate for stone. Medical history impacting this visit includes prior kidney stones. Diagnoses as of 02/01/24 1512 Ureteral stone with hydronephrosis Medications sodium chloride 0.9 % bolus 1,000 mL (0 mL IntraVENous Stopped 02/01/24 1401) morphine injection 4 mg (4 mg IntraVENous Given 02/01/24 1305) ketorolac (Toradol) injection 15 mg (15 mg IntraVENous Given 02/01/24 1303) ondansetron (Zofran) injection 4 mg (4 mg IntraVENous Given 02/01/24 1302) REVAL: CT as above. Patient feels improved. He has normal renal function normal white count no signs of sepsis. Given that it is 4 mm he should be able to pass this on his own. Recommend fluids Tylenol ibuprofen. He declined narcotic medication. Do not believe Flomax is necessary. Return precautions provided. CRITICAL CARE TIME None CONSULTS: None PROCEDURES: Unless otherwise noted below, none Procedures Patients symptoms are consistent with sepsis, severe sepsis, or septic shock (If yes use ".sepsiscoremeasure"): no FINAL IMPRESSION 1. Ureteral stone with hydronephrosis DISPOSITION Discharge 02/01/2024 03:10:52 PM PATIENT REFERRED TO: [facility] - [address] [facility] [id number] DISCHARGE MEDICATIONS: New Prescriptions No medications on file (Comment: Please note this report has been produced using speech recognition software and may contain errors related to that system including errors in grammar, punctuation, and spelling, as well as words and phrases that may be inappropriate. If there are any questions or concerns please feel free to contact the dictating provider for clarification.) Feng Hagan MD (electronically signed) Emergency Medicine Provider Feng Hagan MD 02/01/24 1512 [facility] 12-02-2023 History of Presen t illness Narrative Images from the original note were not included. [facility] 201 [facility] 16 [facility] [address] Dept: [phone] Dept Loc: [phone] Visit type: Established Patient Reason for Visit: Follow-up and Other (Obstructive sleep apnea/) Assessment and Plan 1. Obstructive sleep apnea - CPAP Subjective HPI: Expand All Collapse All [facility] [address] [address] Dept: [phone] Dept Loc: [phone] Visit type: Established Patient Reason for Visit: Follow-up and Sleep Apnea Assessment and Plan 1. Obstructive sleep apnea - PAP therapy 2. Vertigo - ondansetron ODT (Zofran-ODT) 4 MG disintegrating tablet; Take 1 tablet (4 mg) by mouth every 8 hours as needed for nausea or vomiting., Starting 11/30/2022, Until Wed12/30/2022 at 2359, Normal Subjective HPI: Per report today, the patient is wearing the positive airway pressure every night. The mask is not leaking. The patient is sleeping through the night with the mask on. The patient reports that the mask is providing refreshing sleep. I reviewed the on-line data from the patient's device today. Ramsey Chance 09/02/2023 - 11/30/2023 : 1955 Age: 68 years [facility] ([id number]) [address] [facility], [address] Compliance Report Usage 09/02/2023 - 11/30/2023 Usage days 90/90 days (100%) >= 4 hours 90 days (100%) < 4 hours 0 days (0%) Usage hours 896 hours 56 minutes Average usage (total days) 9 hours 58 minutes Average usage (days used) 9 hours 58 minutes Median usage (days used) 10 hours 3 minutes Total used hours (value since last reset - 11/30/2023) 13,499 hours [employer] 10 [employer] Serial number [id number] Mode Spont IPAP 11 cmH2O EPAP 6 cmH2O Easy-Breathe On Therapy Leaks - L/min Median: 10.5 95th percentile: 23.9 Maximum: 90.9 Events per hour AI: 0.0 HI: 0.1 AHI: 0.1 Apnea Index Central: 0.0 Obstructive: 0.0 Unknown: 0.0 Review of Systems Constitutional: Negative for appetite change, chills, diaphoresis, fever and unexpected weight change. HENT: Negative for dental problem and mouth sores. Eyes: Negative for discharge and itching. Respiratory: Negative for chest tightness. Cardiovascular: Negative for chest pain and leg swelling. Gastrointestinal: Negative for rectal pain and vomiting. Endocrine: Negative for polydipsia, polyphagia and polyuria. Genitourinary: Negative for decreased urine volume, flank pain and genital sores. Musculoskeletal: Negative for arthralgias. Skin: Negative for color change. Allergic/Immunologic: Negative for food allergies and immunocompromised state. Hematological: Negative for adenopathy. Does not bruise/bleed easily. Psychiatric/Behavioral: Negative for agitation, behavioral problems, decreased concentration, sleep disturbance and suicidal ideas. Allergies Allergen Reactions Sitagliptin Other reaction(s): caused pancreatitis, Other (See Comments), Other: See Comments, pancreatitis Caused pancreatitis Caused pancreatitis Current Outpatient Medications: allopurinol (Zyloprim) 100 MG tablet, Take 100 mg by mouth., Disp: , Rfl: amLODIPine (Norvasc) 5 MG tablet, Take 5 mg by mouth daily., Disp: , Rfl: ascorbic acid (Vitamin C) 250 MG tablet, Take 250 mg by mouth daily., Disp: , Rfl: cloNIDine (Catapres) 0.1 MG tablet, Take 0.1 mg by mouth 2 times daily., Disp: , Rfl: ferrous sulfate 325 (65 Fe) MG tablet, Take 325 mg by mouth., Disp: , Rfl: loratadine-pseudoephedrine ER (Claritin-D 24-hour) 10-240 MG 24 hr tablet, Take 1 tablet by mouth daily. Do not crush, chew, or split., Disp: , Rfl: losartan (Cozaar) 100 MG tablet, 100 mg., Disp: , Rfl: lovastatin (Mevacor) 40 MG tablet, 40 mg., Disp: , Rfl: metFORMIN (Glucophage) 1000 MG tablet, Take 1,000 mg by mouth., Disp: , Rfl: metoprolol tartrate (Lopressor) 100 MG tablet, 100 mg., Disp: , Rfl: pantoprazole (ProtoNix) 40 MG EC tablet, Take 40 mg by mouth daily., Disp: , Rfl: pioglitazone (Actos) 30 MG tablet, Take 30 mg by mouth daily., Disp: , Rfl: SERTRALINE HCL PO, Take by mouth., Disp: , Rfl: Past Medical History: Diagnosis Date Depression Diabetes mellitus (HCC) GERD (gastroesophageal reflux disease) Hyperlipidemia Hypertension Sleep apnea Vertigo Social History Tobacco Use Smoking status: Former Smokeless tobacco: Never Substance Use Topics Alcohol use: Not Currently Past Surgical History: Procedure Laterality Date CHOLECYSTECTOMY ENDOSCOPY VISIT OUTPATIENT (HISTORICAL) 08/2023 OTHER SURGICAL HISTORY Pins put in and then removed for leg fracture SHOULDER SURGERY Family History Problem Relation Name Age of Onset Heart attack Father Objective Vitals: BP 138/79 (BP Location: Right arm, Patient Position: Sitting, BP Cuff Size: Large adult) Pulse 64 Ht 5' 11" (1.803 m) Wt 241 lb (109 kg) BMI 33.61 kg/m General Appearance: Patient is in no apparent distress. Head is normocephalic, atraumatic Cardiovascular: Regular rate and rhythm. No heart murmurs. No carotid bruit Neurologic: Mentation: Alert and oriented x 3 to [address], place and time. Speech and Language: Speech and language normal Concentration and Attention: Concentration normal Memory: Memory normal Fund of Knowledge: Fund of knowledge normal Cranial Nerves: II, III, IV, V, , VII, VIII, IX, X, XI, XII examined and were intact. Motor: Strength: Strength 5 out of 5 with normal tone Alternating Movements: Normal Cogwheel Rigidity: None Tone: Tone is normal Tremor / Involuntary Movements: None Deep Tendon Reflexes: 1 out of 4 symmetrical in all four limbs. Sensory: Normal sensation upper and lower extremities Coordination: Normal coordination upper and lower extremities Gait and Station: Station is normal. Gait is normal Data Reviewed and Summarized DIAGNOSTIC TESTING CBC: Lab Results Component Value Date WBC 8.1 04/13/2023 RBC 4.60 04/13/2023 HGB 13.7 04/13/2023 HCT 41.3 04/13/2023 MCV 89.8 04/13/2023 MCH 29.8 04/13/2023 MCHC 33.2 04/13/2023 RDW 13.2 04/13/2023 PLT 222 04/13/2023 MPV 10.2 04/13/2023 CMP: Lab Results Component Value Date NA 139 08/11/2019 K 4.2 08/11/2019 CL 101 08/11/2019 CO2 26 08/11/2019 BUN 16 08/11/2019 CREATININE 1.02 08/11/2019 GLUCOSE 98 08/11/2019 PROT 7.3 08/11/2019 CALCIUM 9.7 08/11/2019 BILITOT 0.3 08/11/2019 ALKPHOS 67 08/11/2019 AST 44 08/11/2019 BMP: Lab Results Component Value Date NA 139 08/11/2019 K 4.2 08/11/2019 CL 101 08/11/2019 CO2 26 08/11/2019 BUN 16 08/11/2019 CREATININE 1.02 08/11/2019 CALCIUM 9.7 08/11/2019 GLUCOSE 98 08/11/2019 PT/INR: No results found for: "PROTIME", "INR" PTT: No results found for: "APTT", "PTT"[APTT} FLP: No results found for: "CHLPL", "TRIG", "HDL", "LDLCALC", "LDLDIRECT" TSH: No results found for: "TSH" VITAMIN B12: No results found for: "KPBACUEK02" No results found for: "PHENYTOIN", "PHENOBARB", "VALPROATE", "CBMZ" No components found for: "TOPIRA" @RESULTINGLABINFO@ FERRITIN Date Value Ref Range Status 04/13/2023 49 18 - 464 ng/mL Final No results found for: "MARBELLA", "IMMUNOGLOBUL", "OLIGOBANDS" No results found for: "UXN42ON", HEPCAB No results found for: "CRP", "ANATITER", "ANCA" FERRITIN: Lab Results Component Value Date FERRITIN 49 04/13/2023 ---- No image results found. IMPRESSION and PLAN: Diagnosis Plan 1. Obstructive sleep apnea CPAP He is compliant and the PAP therapy is working. I lowered the settings. Set Therapy mode to Spont Set EPAP to 5.0 cmH2O Set IPAP to 10.0 cmH2O Set Easy-Breathe to On Set Ramp enable to Off Stephania Fortune MD I spent 20 minutes caring for this patient today, reviewing labs, records, seeing the patient, documenting in the record and arranging for studies. documented in this encounter [facility] 08-20-2023 History of Presen t illness Narrative Images from the original note were not included. CRITICAL CARE TRANSPORT MEDICAL CONTROL CONSULT NOTE Patient Name: Ramsey Chance Service Date: August 20, 2023 Referring Facility: [facility] Accepting Facility: [facility] MA[facility] REASON FOR TRANSPORT: higher level of care REASON FOR CONSULT: patient management during transport CCT MEDICAL CONTROL CONSULT SUMMARY: History, physical exam findings, and available background patient information from CCT Transport Nurse were reviewed at the time of consult. Pertinent additional information was reviewed as follows: Epic Records and CCT transport request log In brief, Ramsey Chance is a 68 year old male with a history, known at time of consult, significant for DM2, GERD, HTN, HPL, obesity, ROMULO (CPAP) who presented to [facility] for evaluation of acute GIB. Per report he had an upper and lower GI scope done, 4 polyps clipped 2 days ago. This evening he is vomiting bright red blood, he is pale and diaphoretic. Per nursing he had a large (approx 900 ml) emesis while in the ED. He was given 2 units PRBC, 2 L IV fluids and he was intubated for airway protection. Propofol and fentanyl infusions started for sedation. H/H 10.8/32.4, WBC 12.81, lactate 4. PLAN: Multiple factors considered including: patient history/condition/trajectory/sta bility, referring and receiving destinations, duration of transport time, medications and therapies available during transport, patient safety, as well as crew capabilities. At the time of encounter with [facility] ground team pt finishing up PRBC unit #2 and NS L #3 hung. He was on Propofol 20 mcg/kg/min, Fentanyl 50 mcg/hr started. Vent set 12-450-50%-5+. ABG resulted while at bedside 7.21/57/60/22, and vent rate increased to 20. ED was able to given CCT 2 additional units PRBC for transfusion during transport. Orders given for: Vent -20-450-50%-5+ Propofol - continue and titrate as needed for sedation Give PRBC x 2 as ordered by OSH ED Calcium gluconate 1 gm IV Plan of care and orders confirmed and read back via telephone with [facility] Transport produce service team member, Gi Dunne, Mat Roller and Ml Wagner, RN SIGNATURE: Cynthia Roper APRN.CNP Acute Care Nurse Practitioner Critical Care Transport documented in this encounter [facility] 10-31-2013 History of Past i llness Narrative Problem Noted Date Diagnosed Date Resolved Date Hx of colonic polyps 10/31/2013 017 Overview: Dr. Walsh: Adenomatous-4 tublar Agitation 10/31/2013 02/16/2017 Allergic rhinitis 10/31/2013 02/16/2017 Kidney stone 10/31/2013 02/16/2017 Verruca vulgaris 10/31/2013 02/16/2017 Acute pancreatitis 10/19/2013 7 Overview: From Jose documented as of this encounter (statuses as of 08/20/2023) [facility] Diagnosis Onset Date Resolution Status Bronchitis acute Maxillary sinusitis acute Injury of right knee acute Right knee pain acute Osteoarthritis of right knee noneactive Arthritis of knee, left acut e Poor circulation of extremity acute Dysuria acute Type 2 diabetes mellitus without complications chronic [facility] Work Phone: Evaluation note* Diagnosis Anemia due to blood loss- Primary Acute posthemorrhagic anemia [facility]* Diagnosis Anemia due to chronic blood loss- Primary Iron deficiency anemia secondary to blood loss (chronic) documented [facility]* Diagnosis Obstructive sleep apnea- Primary Obstructive sleep apnea (adult) (pediatric) documented [facility]* Diagnosis Ureteral stone with hydronephrosis- Primary documented [facility]* Diagnosis Calculus of ureter documented in this encounter [facility] note* Diagnosis Iron deficiency anemia, unspecified- Primary documented in this encounter [facility] note* Diagnosis Calculus of ureter- Primary Calculus of ureter [facility]* Diagnosis Gastric polyposis- Primary Benign neoplasm of stomach Encounter for screening for malignant neoplasm of stomach Special screening for malignant neoplasms of other sites Type 2 diabetes mellitus without complication, without long-term current use of insulin (HCC) [facility] Diagnosis Obstructive sleep apnea- Primary Obstructive sleep apnea (adult) (pediatric) documented in this encounter [facility] for referral (narrative)* Consultation (Routine) - Pending Review Specialty Diagnoses / Procedures Referred By Chandni serrano Referred To Contact Urology Diagnoses Ureteral stone with hydronephrosis Procedures [place] OFFICE/OUTPATIENT [facility] 60 MINUTES Feng Hagan MD [address] [place] [address] [facility] [address] [place] [address] Referral ID Status Reason Start Date Expiration Date Visits Requested Visits Authorized [id number] Pending Review Specialty Services Required 02/01/2024 01/31/2025 1 1 [facility] Summary Purpose Family History No Family History Records Found Relationship Condition Age at Onset Recorded Date/T chance father Coronary artery disease Unknown Advance Directives No Advanced Directives Records Found Date Activated Date Inactivated Comments 08/20/2023 4:26 AM 08/21/2023 6:04 PM Question Answer Comments Full Code Order Discussed With: Surrogate Decisi on Maker Documents on File Type Date Recorded Patient Grades 1 Through 6 Teacher Expl anation Advance Directives and Living Will Power of Green Building Energy Engineer Documents on File Type Date Recorded Patient Grades 1 Through 6 Teacher Expl anation ACP-Advance Directive ACP-Power of Green Building Energy Engineer Date Activated Date Inactivated Comments 08/20/2023 4:26 AM Date Activated Date Inactivated Comments 08/20/2023 4:26 AM 08/21/2023 6:04 PM Question Answer Comments Full Code Order Discussed With: Surrogate Decisi on Maker Chief Complaint and Reason for Visit Chief Complaint Sinus & ST Knee injury/ fell last week LEFT KNEE RM 3 Circulation issues W/both legs Urinary tract infection Reason for Visit Bronchitis Maxillary sinusitis Injury of right knee Right knee pain Osteoarthritis of right knee Arthritis of knee, left Poor circulation of extremity Dysuria Type 2 diabetes mellitus without complications Additional Source Comments (unrecognized sect ion and content) No Status Records FoundNo Status Records FoundNo Status Records FoundNo Status Records FoundNo Status Records FoundNo Status Records FoundNo Status Records FoundNo Status Records Found INFORMATION SOURCE (unrecogn ized section and content) DATE CREATED AUTHOR 11/03/2017 [facility] DATE CREATED AUTHOR AUTHOR'S ORGANIZ ATION 12/24/2018 [facility] DATE CREATED AUTHOR AUTHOR'S ORGANIZ ATION 09/06/2019 [facility] DATE CREATED AUTHOR AUTHOR'S ORGANIZ ATION 07/12/2021 [facility] DATE CREATED AUTHOR AUTHOR'S ORGANIZ ATION 10/16/2022 [facility] DATE CREATED AUTHOR AUTHOR'S ORGANIZ ATION 11/29/2024 [facility] DATE CREATED AUTHOR AUTHOR'S ORGANIZ ATION 01/25/2025 [facility] DATE CREATED AUTHOR AUTHOR'S ORGANIZ ATION 02/21/2025 [facility] Care Teams (unrecognized sec tion and content) Hi Lo Driver Relationship Specialty Start Date End Date Edgar Bello [address] [place] [address] PCP - General 02/27/15 Hi Lo Driver Relationship Specialty Start Date End Date Edgar Bello [address] [place], [place] [id number] PCP - General 02/27/15 Team Status: Active Member Role Status Dates Edgar Bello CANE STRIPPER, CANE STRIPPER-C Family Provider Active Edgar Bello CANE STRIPPER, CANE STRIPPER-C Primary Care Provider Active Team Status: Inactive Member Role Status Dates Edgar Bello CANE STRIPPER, CANE STRIPPER-C Primary Care Provider, Referr ing Provider Active Marissa RAO, PA Attending Provider Active Team Status: Inactive Member Role Status Dates Edgar Bello CANE STRIPPER, CANE STRIPPER-C Primary Care Provider Active Dr. Elie Mark MD Attending Provider Active Team Status: Inactive Member Role Status Dates Edgar Bello CANE STRIPPER, CANE STRIPPER-C Primary Care Pr ovider, Attending Provider, Referring Provider Active Team Status: Inactive Member Role Status Dates Edgar Bello CANE STRIPPER, CANE STRIPPER-C Primary Care Provider, Attend ing Provider Active Hi Lo Driver Relationship Specialty Start Date End Date Edgar Bello [address] [place], [place] [address] PCP - General 02/27/15 Hi Lo Driver Relationship Specialty Start Date End Date Edgar Bello [address] [place], [place] [id number] PCP - General 02/27/15 Hi Lo Driver Relationship Specialty Start Date End Date Edgar Bello Janusz, SHIPPING/RECEIVING CLERK.CONTENT DEVELOPMENT MANAGER [address] [phone] PCP - General Family Medicine 02/16/17 Hi Lo Driver Relationship Specialty Start Date End Date Edgar Bello [address] [place] [address] PCP - General 02/27/15 Hi Lo Driver Relationship Specialty Start Date End Date Edgar Bello [address] [place], [place] [phone] PCP - General 02/27/15 Hi Lo Driver Relationship Specialty Start Date End Date Edgar Bello [address] [place] [address] PCP - General 02/27/15 Hi Lo Driver Relationship Specialty Start Date End Date Edgar Bello [address] [place] [address] PCP - General 02/27/15 Hi Lo Driver Relationship Specialty Start Date End Date Edgar Bello [address] [place] [address] PCP - General 02/27/15 Hi Lo Driver Relationship Specialty Start Date End Date Edgar Belol, SHIPPING/RECEIVING CLERK.CONTENT DEVELOPMENT MANAGER [address] [place], [place] [id number] PCP - General Family Medicine 02/16/17 Hi Lo Driver Relationship Specialty Start Date End Date Ace Edgar L, SHIPPING/RECEIVING CLERK.CONTENT DEVELOPMENT MANAGER [address] [place], [place] [phone] PCP - General Family Medicine 02/16/17 Hi Lo Driver Relationship Specialty Start Date End Date Edgar Bello [address] [place] [address] PCP - General 02/27/15 Goals (unrecognized section and content) Goals may be documented in a n alternate section Source Comments (unrecognize d section and content) In the event this informatio n is protected by the Federal Confidentiality of Alcohol and Drug Abuse Patient Records regulations: The Federal rules restrict any use of the information to criminally investigate or prosecute any alcohol or drug abuse patient.[facility] the event this information is protected by the Federal Confidentiality of Alcohol and Drug Abuse Patient Records regulations: The Federal rules restrict any use of the information to criminally investigate or prosecute any alcohol or drug abuse patient.[facility] the event this information is protected by the Federal Confidentiality of Alcohol and Drug Abuse Patient Records regulations: The Federal rules restrict any use of the information to criminally investigate or prosecute any alcohol or drug abuse patient.[facility] Reason for Visit (unrecogniz ed section and content) Reason Comments Critical Care Transport Reason Comments Follow-up Other Obstructive sleep ap priya Reason Comments Flank Pain Reason Comments Medication Problem Reason Comments gastric polyp Reason Comments Follow-up Sleeping Problem Inactive Administered Medications - up to 3 most recent administrations Administered Medications (un recognized section and content) Medication Order MAR Action Action Date Dose Rate Site propofol infusion (DIPRIVAN) 5-60 mcg/kg/min 114.4 kg (3.432-41.184 mL/hr, rounded to 3.43-41.18 mL/hr), INTRAVENOUS, CONTINUOUS, Starting on Wed08/20/23 at 0330, Until Wed08/20/23 at 0627, Titrate to a RASS of 0 to -2 (light sedation). Start at 5-10 mcg/kg/min or continue at current infusion rate. Titrate by 2-5 mcg/kg/min every 2-5 minutes. Contact LIP if dose adjusted by more than 20 mcg/kg/min within 30 minutes. If spontaneous awakening trial (SAT) indicated, turn infusion off and monitor for SAT failure. If patient fails SAT per protocol, then re-start at one-half of the previous dose and titrate to RASS goal. EXPIRES 12 HOURS AFTER OPENED OR SPIKED Rate/Dose Change 08/20/2023 3:10 AM EDT 40 mcg/kg/min 27.46 mL/hr Rate/Dose Change 08/20/2023 3:05 AM EDT 35 mcg/kg/min 24.0 2 mL/hr Rate/Dose Change 08/20/2023 3:00 AM EDT 30 mcg/kg/min 20.5 9 mL/hr Scheduled Active and Recently Administ ered Medications (unrecognized section and content) Medication Order 01/30/2024 01/31/2024 02/01/2024 ketorolac (Toradol) injection 15 mg (COMPLETED) 15 mg, IntraVENous, Once, On Wed02/01/24 at 1250, For 1 dose 1303 (Given - Provid er: Jael Castle RN) morphine injection 4 mg (COMPLETED) 4 mg, IntraVENous, Once, On Wed02/01/24 at 1250, For 1 dose, If oral and IV narcotics ordered, use oral first and only use IV if oral is ineffective or cannot take oral. Do Not give oral and IV within 1 hour of each other unless specifically ordered. 1305 (Given - Provid er: Jael Castle RN) ondansetron (Zofran) injection 4 mg (COMPLETED) 4 mg, IntraVENous, Once, On Wed02/01/24 at 1250, For 1 dose 1302 (Given - Provid er: Jael Castle RN) sodium chloride 0.9 % bolus 1,000 mL (COMPLETED) 1,000 mL, IntraVENous, at 1,000 mL/hr, Administer over 1 Hours, Once, On Wed02/01/24 at 1250, For 1 dose 1301 (New Bag - Prov ider: Jael Castle RN)1401 (Stopped - Provider: Mena Gómez RN) FOR RECORDS PERTAINING TO PATIENTS WHO ARE OR HAVE BEEN ENROLLED IN A CHEMICAL DEPENDENCY/SUBSTANCEABUSE PROGRAM, SOME INFORMATION MAY BE OMITTED. This clinical summary was aggregated from multiple sources. Caution should be exercised in using it in the provision of clinical care. This summary normalizes information from multiple sources, and as a consequence, information in this document may materially change the coding, format and clinical context of patient data. In addition, data may be omitted in some cases. CLINICAL DECISIONS SHOULD BE BASED ON THE PRIMARY CLINICAL RECORDS. [facility], [facility]. provides no warranty or guarantee of the accuracy or completeness of information in this document.
== END | disposition home or self-care (01) ==
LOC: RAD 12:02
PROVIDERS: PCP Nurse Practitioner; Referring Provider Nurse Practitioner; Visit Provider Nurse Practitioner
DX: S46.912A Strain of unspecified muscle, fascia and tendon at shoulder and upper arm level, left arm, initial encounter (principal); M75.82 Other shoulder lesions, left shoulder
CPT/HCPCS: 73030

== ENCOUNTER → 2025-03-23 | Outpatient (CLI) | payer MEDICARE, OTHER, SELFPAY ==
--- NOTE | 2025-03-23 12:15 | RAD_ITS ---
PROCEDURE: HUMERUS MIN 2 VIEWS 03/23/2025 REASON FOR EXAM: FELL OFF LOWN MOWER TECHNIQUE: Procedure Code: RADHUM Modality: DX Procedure: HUMERUS MIN 2 VIEWS Laterality: Left COMPARISON: Left shoulder study dated 02/23/2025 FINDINGS: Bones: There are no fractures. Joints: Measures 6 mm on today's study. Previously it measured 8.8 mild arthritic changes of the glenohumeral joint are noted. The acromial humeral space is well-maintained. The coracoclavicular space is well-maintained. The left elbow joints are unremarkable. Soft tissues: No appreciable soft tissue swelling is noted. 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 No fractures or dislocations. Reading Location: [id number]
== END | disposition home or self-care (01) ==
LOC: RAD 11:54
PROVIDERS: PCP Nurse Practitioner; Referring Provider Nurse Practitioner; Visit Provider Nurse Practitioner
DX: M79.602 Pain in left arm (principal)
CPT/HCPCS: 73060